=== PATIENT | female | born 1955 | race Caucasian/White ===

== ENCOUNTER → 2017-06-22 | Outpatient (CLI) | payer BC ==
--- NOTE | 2017-06-22 19:28 | Diagnostic Imaging Report ---
INDICATION: Six-month followup of right breast density. Correlation is made with prior mammogram from 01/04/2017. The current study was also evaluated with a Computer Aided Detection (CAD) system. 3D CC, MLO and mediolateral views of the right breast as well as conventional 2D exaggerated CC view of the right breast was performed. FINDINGS: The focal slightly lobulated density in the far posterior aspect of the right breast at the nipple line best seen on the MLO and ML views appears stable. This appears to be slightly laterally located on the CC view. No new mass is identified. No malignant-appearing microcalcifications are seen. The right axilla is unremarkable. IMPRESSION: Stable right breast nodule when compared with examination from 01/04/2017. Additional followup in six-month is recommended to confirm stability. ACR BI-RADS Category 3: Probably benign findings. Result letter will be mailed to the patient. Note: At least 10% of breast cancer is not imaged by mammography. Dictated by: Dictated on workstation # [id number]
== END ==
LOC: RAD 14:09
PROVIDERS: ATTEND Family Medicine
DX: R92.2 Inconclusive mammogram (principal)

== ENCOUNTER → 2018-01-04 | Outpatient (CLI) | payer BC ==
--- NOTE | 2018-01-04 09:10 | Diagnostic Imaging Report ---
INDICATION: Six-month followup of right breast density. COMPARISON: Correlation is made with the prior mammogram from 06/22/2017 as well as 01/04/2017 and 01/30/2016. TECHNIQUE: 2D and 3D bilateral diagnostic mammography was performed with CAD. FINDINGS: Scattered fibroglandular densities are identified bilaterally. A small circumscribed nodular density in the far posterior right breast slightly lateral to the nipple line on the CC view is noted and appears stable. No new mass is seen. No malignant appearing microcalcifications are identified. The axillae are unremarkable. IMPRESSION: Stable right breast nodule. This now shows 1 year of stability. The left breast is unremarkable. The patient should return in 6 months for an additional followup of the right breast to show continued stability. ACR BI-RADS Category 3: Probably benign findings. Result letter will be mailed to the patient. Note: At least 10% of breast cancer is not imaged by mammography. Dictated by: Dictated on workstation # [id number]
== END ==
LOC: RAD 08:31
PROVIDERS: ATTEND Nurse Practitioner Family
DX: N63.10 Unspecified lump in the right breast, unspecified quadrant (principal)
CPT/HCPCS: 77066

== ENCOUNTER → 2018-07-13 | Outpatient (CLI) | payer BC ==
--- NOTE | 2018-07-13 20:18 | Diagnostic Imaging Report ---
INDICATION: Six-month followup. Comparison made with prior examination 01/04/2018 back through 04/23/2011. The current study was also evaluated with a Computer Aided Detection (CAD) system. FINDINGS: There are scattered fibroglandular densities in the right breast. The faint nodular density in the posterior right breast is unchanged and less apparent on today's exam. This is no new dominant mass, spiculated lesion or suspicious calcification identified. The skin nipples and axilla are unremarkable. IMPRESSION: The patient should resume bilateral screening mammography in January 2019. ACR BI-RADS Category 2: Benign findings. Result letter will be mailed to the patient. Note: At least 10% of breast cancer is not imaged by mammography. Dictated by: Dictated on workstation # [id number]
== END ==
LOC: RAD 13:33
PROVIDERS: ATTEND Nurse Practitioner Family
DX: N63.10 Unspecified lump in the right breast, unspecified quadrant (principal)

== ENCOUNTER → 2019-02-07 | Outpatient (CLI) | payer MEDICARE ==
--- NOTE | 2019-02-07 19:15 | Diagnostic Imaging Report ---
INDICATION: Screening. The current study was also evaluated with a Computer Aided Detection (CAD) system. 3-D Tomographic imaging was also performed. Comparison made with prior examinations from 07/13/2018, 01/04/2018, 06/22/2017, and 01/04/2017. FINDINGS: There are scattered fibroglandular densities bilaterally. There is an unchanged faint nodular density in the posterior aspect of the right breast laterally. There are a few benign-type calcifications. There is no new dominant mass, spiculated lesion, or suspicious calcification identified. The skin, nipples, and axillae are unremarkable. IMPRESSION: Benign. ACR BI-RADS Category 2: Benign findings. Result letter will be mailed to the patient. Note: At least 10% of breast cancer is not imaged by mammography. Dictated by: Dictated on workstation # [id number]
== END ==
LOC: RAD 08:13
PROVIDERS: ATTEND Nurse Practitioner Family
DX: Z12.31 Encounter for screening mammogram for malignant neoplasm of breast (principal)
CPT/HCPCS: 77067

== ENCOUNTER → 2019-11-20 | Outpatient (CLI) | payer MEDICARE ==
[2019-11-20 11:56] LABS: BUN/CREATININE RATIO 18; GFR ESTIMATED > 60
== END ==
LOC: LAB 11:28
PROVIDERS: ATTEND Otolaryngology Otolaryngology/Facial Plastic Surgery
DX: H91.8X2 Other specified hearing loss, left ear (principal)
CPT/HCPCS: 82565; 84520

== ENCOUNTER → 2019-11-21 | Outpatient (CLI) | payer MEDICARE ==
--- NOTE | 2019-11-22 13:57 | Diagnostic Imaging Report ---
NAME: Cassidy Morton. : 1955. EXAMINATION: MRI brain without contrast on 11/21/2019. INDICATION: Hearing loss. TECHNIQUE: Multiplanar, multisequence imaging of the brain was performed without contrast. IV contrast was not administered. The patient refused contrast. FINDINGS: The ventricles and sulci are within normal limits. No sulcal effacement or midline shift is identified. No acute intra-axial or extra-axial hemorrhage is detected. No diffusion restriction is identified. The normal expected flow-voids within the carotid siphons are seen. No definite cerebellopontine angle mass is detected. The IACs are unremarkable. The corpus callosum is unremarkable. The sella and parasellar structures are unremarkable. IMPRESSION: Unremarkable noncontrast MRI of the brain. Dictated by: Dictated on workstation # [id number]
== END ==
LOC: RAD 11:53
PROVIDERS: ATTEND Otolaryngology Otolaryngology/Facial Plastic Surgery
DX: H91.92 Unspecified hearing loss, left ear (principal)
CPT/HCPCS: 70551

== ENCOUNTER → 2019-12-14 | Outpatient (CLI) | payer MEDICARE | LOC: LABNPT 05:44 | PROVIDERS: ATTEND Family Medicine | DX: R06.02 Shortness of breath (principal); Z20.828 Contact with and (suspected) exposure to other viral communicable diseases | CPT/HCPCS: 87635 ==

== ENCOUNTER → 2020-03-12 | Outpatient (CLI) | payer MEDICARE ==
--- NOTE | 2020-03-13 09:34 | Diagnostic Imaging Report ---
Indication: Routine screening. Comparison is made with prior mammogram from 02/07/2019 and 01/04/2018. 2-D and 3-D bilateral screening mammography was performed with CAD. Scattered fibroglandular densities are identified bilaterally. A focal density in the lateral left breast on the CC view posterior depth is noted. Additional views are recommended. Right breast unremarkable. No malignant appearing microcalcifications are seen. Axillae are unremarkable. IMPRESSION: BI-RADS 0 Left breast density. Additional views are recommended. ACR BI-RADS Category 0: Incomplete. (Needs additional imaging evaluation). Result letter will be mailed to the patient. Note: At least 10% of breast cancer is not imaged by mammography. Dictated by: Dictated on workstation # [id number]
== END ==
LOC: RAD 14:45
PROVIDERS: ATTEND Nurse Practitioner Family
DX: Z12.31 Encounter for screening mammogram for malignant neoplasm of breast (principal)
CPT/HCPCS: 77063; 77067

== ENCOUNTER → 2020-03-21 | Outpatient (CLI) | payer MEDICARE ==
--- NOTE | 2020-03-21 20:21 | Diagnostic Imaging Report ---
INDICATION: Left breast density. Patient presents for additional views. COMPARISON: Correlation is made with screening study from 03/12/2020. EXAMINATION: Unilateral left 2D and 3D diagnostic mammography was performed. This includes spot compression CC and ML views as well as rolled CC and conventional 90 degree lateral views. FINDINGS: Additional views fail to demonstrate discrete mass. There is some mild density in the lateral left breast which most likely represents superimposed tissue. No suspicious calcifications are seen. IMPRESSION: No discrete mass is identified. Even so, follow-up left mammogram in six months is recommended to show continued stability. ACR BI-RADS Category 3: Probably benign findings. Result letter will be mailed to the patient. Note: At least 10% of breast cancer is not imaged by mammography. Dictated by: Dictated on workstation # [id number]
== END ==
LOC: RAD 14:08
PROVIDERS: ATTEND Nurse Practitioner Family
DX: R92.2 Inconclusive mammogram (principal)
CPT/HCPCS: 77065; G0279

== ENCOUNTER → 2021-05-28 | Outpatient (CLI) | payer MEDICARE ==
--- NOTE | 2021-05-28 10:21 | Diagnostic Imaging Report ---
INDICATION: Right breast pain and left breast lump COMPARISON is made with prior mammograms from 03/12/2020 and 02/07/2019. 2-D and 3-D bilateral diagnostic mammography was performed with CAD. Scattered fibroglandular densities are identified bilaterally. No mass or malignant-appearing microcalcifications are seen. Axillae are unremarkable. IMPRESSION: BI-RADS Category 0 No mammographic features suspicious for malignancy are identified. Even so, sonographic interrogation of the area of pain in the right breast and lump in left breast is recommended and will be performed today. ACR BI-RADS Category 0: Incomplete. (Needs additional imaging evaluation). Result letter will be mailed to the patient. Note: At least 10% of breast cancer is not imaged by mammography. Dictated by: Dictated on workstation # [id number]
--- NOTE | 2021-05-28 14:02 | Diagnostic Imaging Report ---
INDICATION: Right breast pain and left breast lump. CORRELATION is made with diagnostic study performed earlier same day. Area of pain in the right breast was performed corresponding to the 11 to 2 o'clock location. No sonographic abnormality is seen. No masses are detected. The area of lump corresponds to the 12:00 location of the left breast, 5 cm from the nipple. No mass is detected. No sonographic abnormality is identified. IMPRESSION: BI-RADS Category 1 No sonographic abnormality is identified. Continued clinical and self breast exams of the area of lump left breast is recommended to confirm stability. ACR BI-RADS Category 1: Negative. Result letter will be mailed to the patient. Note: At least 10% of breast cancer is not imaged by mammography. Dictated by: Dictated on workstation # [id number]
== END ==
LOC: RAD 08:48
PROVIDERS: ATTEND Family Medicine
DX: N63.20 Unspecified lump in the left breast, unspecified quadrant (principal); N64.4 Mastodynia
CPT/HCPCS: 76642; 77066; G0279; 77062

== ENCOUNTER 2021-06-01 09:19 | Emergency (ER) | payer MEDICARE ==
[~2021-06-01] VITALS: Ht 160 cm; Wt 62.5 kg
--- NOTE | 2021-06-01 09:42 | ED General ---
General Stated Complaint: HIGH BP 194/140 Source of Information: Patient Exam Limitations: No Limitations History of Present Illness Date Seen by Provider: Jun 01, 2021 Time Seen by Provider: 09:28 Initial Comments Patient is a 65-year-old female who presents to the emergency department with a chief complaint of concern for elevated blood pressure this morning. Patient states she started feeling not so great last night and did not sleep all night complaining of palpitations. Patient at one point during the night had some chest discomfort at about 1 AM. She states she was a little sweaty but "I am always sweaty". No nausea. She felt a little short of breath. She was recently seen by Dr. Ross a week ago for her palpitations and started on metoprolol 25 mg once daily. She was also recently seen by her primary care physician for concern of thyroid dysfunction which she states after labs were obtained was normal. She denies any recent illnesses, no Covid concerns, she is vaccinated. She does have a headache that developed gradually throughout the evening. She denies any problems with speech or new acute changes in vision. No numbness weakness or tingling in any of her extremities. No problems with bowel or bladder. Reportedly her blood pressure this morning at home was in the 240/130 range. Here in the emergency department she is in the 190s over 80s with a heart rate in the 60s. No other chronic medical conditions reported. She is on a vitamin D supplement. All other review of systems reviewed and negative except as stated. Timing/Duration: 12 Hours Severity: Moderate Associated Systoms: Chest Pain, Malaise, Other (palpitations) Allergies and Home Medications Allergies Coded Allergies: Penicillins (Verified Allergy, Unknown, 06/01/21) clarithromycin (Verified Allergy, Unknown, 06/01/21) iodine (Verified Allergy, Unknown, 06/01/21) Patient Home Medication List Home Medication List Reviewed: Yes Review of Systems Review of Systems Constitutional: see HPI EENTM: no symptoms reported Respiratory: short of breath (mild (anxious)) Cardiovascular: chest pain ((discomfort about 1am)) Gastrointestinal: no symptoms reported Genitourinary: frequency ("up every 2 hours" (chronic)) Musculoskeletal: no symptoms reported Skin: no symptoms reported Psychiatric/Neurological: Anxiety ("I always cry"), Headache; Denies Numbness, Denies Paresthesia, Denies Weakness All Other Systems Reviewed Negative Unless Noted: Yes Physical Exam Vital Signs Vital Signs - First Documented 06/01/21 09:30 Temp 36.0 Pulse 89 Resp 18 B/P (MAP) 191/83 (119) Pulse Ox 96 O2 Delivery Room Air Capillary Refill : Height, Weight, BMI Height: '" Weight: lbs. oz. kg; BMI Method: General Appearance: WD/WN, Anxious (tearful) Eyes: Bilateral Eye Normal Inspection, Bilateral Eye PERRL, Bilateral Eye EOMI HEENT: PERRL/EOMI Neck: Normal Inspection Respiratory: Lungs Clear, Normal Breath Sounds, No Accessory Muscle Use, No Respiratory Distress Cardiovascular: Regular Rate, Rhythm (60's), Normal Peripheral Pulses Gastrointestinal: Non Tender, Soft Extremity: Normal Capillary Refill, Normal Inspection, Normal Range of Motion, Non Tender, No Calf Tenderness, No Pedal Edema Neurologic/Psychiatric: Alert, Oriented x3, No Motor/Sensory Deficits, technical services consultant II- XII Norm as Tested, Other (tearful and anxious) Skin: Normal Color, Warm/Dry Progress/Results/Core Measures Suspected Sepsis SIRS Temperature: Pulse: Respiratory Rate: Laboratory Tests 06/01/21 09:40: White Blood Count 7.8 Blood Pressure / Mean: Laboratory Tests 06/01/21 09:40: Creatinine 0.74, Platelet Count 252 Results/Orders Lab Results Laboratory Tests Test 06/01/21 09:40 Range/Units White Blood Count 7.8 4.3-11.0 10^3/uL Red Blood Count 4.59 3.80-5.11 10^6/uL Hemoglobin 14.1 11.5-16.0 g/dL Hematocrit 41 35-52 % Mean Corpuscular Volume 89 80-99 fL Mean Corpuscular Hemoglobin 31 25-34 pg Mean Corpuscular Hemoglobin Concent 35 32-36 g/dL Red Cell Distribution Width 12.4 10.0-14.5 % Platelet Count 252 130-400 10^3/uL Mean Platelet Volume 8.7 L 9.0-12.2 fL Immature Granulocyte % (Auto) 1 % Neutrophils (%) (Auto) 54 42-75 % Lymphocytes (%) (Auto) 35 12-44 % Monocytes (%) (Auto) 7 0-12 % Eosinophils (%) (Auto) 3 0-10 % Basophils (%) (Auto) 1 0-10 % Neutrophils # (Auto) 4.2 1.8-7.8 10^3/uL Lymphocytes # (Auto) 2.7 1.0-4.0 10^3/uL Monocytes # (Auto) 0.6 0.0-1.0 10^3/uL Eosinophils # (Auto) 0.2 0.0-0.3 10^3/uL Basophils # (Auto) 0.0 0.0-0.1 10^3/uL Immature Granulocyte # (Auto) 0.1 0.0-0.1 10^3/uL Sodium Level 137 135-145 MMOL/L Potassium Level 4.0 3.6-5.0 MMOL/L Chloride Level 107 98-107 MMOL/L Carbon Dioxide Level 19 L 21-32 MMOL/L Anion Gap 11 5-14 MMOL/L Blood Urea Nitrogen 13 7-18 MG/DL Creatinine 0.74 0.60-1.30 MG/DL Estimat Glomerular Filtration Rate 89 BUN/Creatinine Ratio 18 Glucose Level 107 H 70-105 MG/DL Calcium Level 8.7 8.5-10.1 MG/DL Troponin I < 0.028 <0.028 NG/ML My Orders Orders - AYAH MOSHER MD Ed Iv/Invasive Line Start (06/01/21 09:43) Cbc With Automated Diff (06/01/21 09:43) Basic Metabolic Panel (06/01/21 09:43) Troponin I [place] (06/01/21 09:43) Ekg Tracing (06/01/21 09:43) Chest 1 View, Ap/Pa Only (06/01/21 09:43) Acetaminophen Tablet (Tylenol Tablet) (06/01/21 09:45) Aspirin Chewable Tablet (Baby Aspirin Ch (06/01/21 09:45) Medications Given in ED Current Medications Medications Dose Ordered Sig/Dontae Route Start Time Stop Time Status Last Admin Dose Admin Acetaminophen 1,000 mg ONCE ONCE PO 06/01/21 09:45 06/01/21 09:46 DC 06/01/21 09:49 1,000 MG Aspirin 324 mg ONCE ONCE PO 06/01/21 09:45 2 09:46 DC 06/01/21 09:49 324 MG Vital Signs/I&O 06/01/21 09:30 Temp 36.0 Pulse 89 Resp 18 B/P (MAP) 191/83 (119) Pulse Ox 96 O2 Delivery Room Air Capillary Refill : Progress Note : Time: 10:59 Progress Note Evaluated at this time, blood pressure down into the 160 range. She feels much better, her headache is improved. I have reviewed her EKG, basic laboratory studies including troponin as well as chest x-ray. All of her studies are within normal limits. No physical exam findings concerning for acute stroke, she does not have acute pulmonary edema, no concern for acute coronary syndrome, she does not have renal failure. No signs of infection. She is quite anxious at baseline and I feel like symptoms of sleeplessness combined with her palpitations caused her blood pressure likely to keep increasing. Her heart rate is now down into the low 50s, lowest noted 49. I talked to her about the metoprolol and have advised her to have close follow-up with Dr. Ross and her primary care physician. Both she and her daughter who is at the bedside verbalized understanding and agreement with the plan of care. All questions are sought and answered. Patient is stable for discharge ECG Initial ECG Impression Date: Jun 01, 2021 Initial ECG Impression Time: 09:23 Initial ECG Rate: 68 Initial ECG Rhythm: Normal Sinus Initial ECG Intervals: Normal Initial ECG Impression: Nonspecific Changes (Nonspecific ST-T wave changes across the precordium, leads V3 to V6 with some T wave inversion and ST flattening in the inferior leads) Diagnostic Imaging Diagonstic Imaging: Xray Plain Films/CT/US/NM/MRI: chest Comments [facility], [place] NAME: FABIOLA MOROCHO Adam [facility] REC#: [id number] PT STATUS: REG ER : 1955 PHYSICIAN: AYAH MOSHER MD ADMIT DATE: 06/01/21/ER Draft Date of Exam:06/01/21 CHEST 1 VIEW, AP/PA ONLY CLINICAL INDICATION: Patient with hypertension, headache, and dizziness onset during the night, patient reports feeling like her heart is racing. EXAM: Portable chest x-ray upright view. COMPARISON: None. FINDINGS: Lungs/pleura: Lungs are clear. There is no pneumothorax. There is no pleural effusion. Mediastinum: Unremarkable. Pulmonary vasculature: Unremarkable. Heart: Upper limits of normal heart size. Bones/extrathoracic soft tissue: Hypertrophic spurs involving the thoracic spine.. IMPRESSION: Upper limits of normal heart size. There is no radiographic evidence of acute cardiopulmonary process. Dictated on workstation # [id number] Dict: 06/01/21 1012 Trans: 06/01/21 1015 CVB [id number] Interpreted by: SHAWN CHINO MD Electronically signed by: Departure Impression Primary Impression: High blood pressure Qualified Codes: I10 - Essential (primary) hypertension Disposition: HOME, SELF-CARE Condition: Improved Departure-Patient Inst. Decision time for Depature: 11:01 Referrals: PAVEL CLOUD MD (PCP/Family) Primary Care Physician Patient Instructions: High Blood Pressure (DC) Add. Discharge Instructions: Watch the salt intake in your diet as well as caffeine intake. These can both increase your blood pressure. Continue your metoprolol as prescribed on a daily basis. If you feel lightheaded or dizzy, weak like you might pass out when standing from sitting or sitting up from laying down take your time and allow your body to adjust before standing up. You may if the symptoms persist, talk to your primary care doctor about changing your metoprolol to a different blood pressure medication. Please follow-up with Dr. Cloud as scheduled. Come back to the emergency room for any new, concerning or emergent complaints. Copy Copies To 1: PAVEL CLOUD MD, KATHRYN M MD Jun 01, 2021 09:42
[2021-06-01] MEDS ORDERED: ASPIRIN 81 MG CHEW (CHILDREN'S ASA) PO ONE (09:45)
[2021-06-01] MEDS ORDERED: ACETAMINOPHEN 500 MG TAB (TYLENOL) PO ONE (09:45)
[2021-06-01 09:52] LABS: CHLORIDE 107 MMOL/L (98-107); SODIUM 137 MMOL/L (135-145)
[2021-06-01 09:53] LABS: BASOPHILS % (AUTO) 1 % (0-10); EOSINOPHILS # (AUTO) 0.2 10^3/uL (0.0-0.3); EOSINOPHILS % (AUTO) 3 % (0-10); HEMATOCRIT 41 % (35-52); HEMOGLOBIN 14.1 g/dL (11.5-16.0); LYMPHOCYTES # (AUTO) 2.7 10^3/uL (1.0-4.0); LYMPHOCYTES % (AUTO) 35 % (12-44); MEAN CORPUSCULAR HEMOGLOBIN 31 pg (25-34); MEAN CORPUSCULAR HGB CONC 35 g/dL (32-36); MEAN CORPUSCULAR VOLUME 89 fL (80-99); MEAN PLATELET VOLUME 8.7 fL (9.0-12.2); MONOCYTES # (AUTO) 0.6 10^3/uL (0.0-1.0); MONOCYTES % (AUTO) 7 % (0-12); NEUTROPHILS # (AUTO) 4.2 10^3/uL (1.8-7.8); NEUTROPHILS % (AUTO) 54 % (42-75); PLATELET COUNT 252 10^3/uL (130-400); WHITE BLOOD COUNT 7.8 10^3/uL (4.3-11.0)
[2021-06-01 09:54] LABS: CALCIUM 8.7 MG/DL (8.5-10.1); GLUCOSE 107 MG/DL (70-105)
[2021-06-01 09:56] LABS: CARBON DIOXIDE 19 MMOL/L (21-32)
[2021-06-01 09:58] LABS: CREATININE SERUM 0.74 MG/DL (0.60-1.30); GFR ESTIMATED 89
[2021-06-01 09:59] LABS: BUN/CREATININE RATIO 18
--- NOTE | 2021-06-01 10:16 | Diagnostic Imaging Report ---
CLINICAL INDICATION: Patient with hypertension, headache, and dizziness onset during the night, patient reports feeling like her heart is racing. EXAM: Portable chest x-ray upright view. COMPARISON: None. FINDINGS: Lungs/pleura: Lungs are clear. There is no pneumothorax. There is no pleural effusion. Mediastinum: Unremarkable. Pulmonary vasculature: Unremarkable. Heart: Upper limits of normal heart size. Bones/extrathoracic soft tissue: Hypertrophic spurs involving the thoracic spine.. IMPRESSION: Upper limits of normal heart size. There is no radiographic evidence of acute cardiopulmonary process. Dictated by: Dictated on workstation # [id number]
[2021-06-01 11:18] VITALS: BP 164/85
== END 2021-06-01 11:18 | disposition home or self-care (01) ==
LOC: EDUNIT# 09:19 → ER 09:20
DX: I10 Essential (primary) hypertension (principal)
CPT/HCPCS: 36415; 71045; 80048; 84484; 85025; 93005

== ENCOUNTER 2021-06-01 11:57 | Outpatient (CLI) | payer MEDICARE | END 2021-06-01 12:28 | LOC: SLEEP 11:57 | PROVIDERS: ATTEND Internal Medicine Cardiovascular Disease | DX: G47.33 Obstructive sleep apnea (adult) (pediatric) (principal); I10 Essential (primary) hypertension | CPT/HCPCS: G0399 ==

== ENCOUNTER 2021-06-04 04:17 | Observation (INO) | payer MEDICARE ==
[~2021-06-04] VITALS: Ht 160 cm; Wt 107.7 kg
[2021-06-04] VITALS (12 sets, daily range): BP systolic 124–166; BP diastolic 58–85
--- NOTE | 2021-06-04 05:28 | ED General ---
General Chief Complaint: Cardiac/General Problems Stated Complaint: BLOOD PRESSURE 241/101 Nursing Triage Note: Pt arrives w/ per POV w/ c/o "elevated blood pressure." Pt states that she woke up and while lying on left side had CP, that stopped when she turned to her back. Denies pain currently and when turns to left side, denies pain. Stated that after she awoke, she said that upon taking her B/P when she didn't take yesterday her B/P was 241/sys. Attached to resident engineer and Sys B/P was 174. Source of Information: Patient Exam Limitations: No Limitations (ANUJA BECKHAM STUDENT) History of Present Illness Date Seen by Provider: Jun 04, 2021 Initial Comments This is a 65 YO female presenting to the ED with blood pressure reading of 241 systolic at home. Pt says she was diagnosed with HTN last week by Dr. Ross and started on Metoprolol succinate 25 mg daily. She notes that she has still been haivng high blood pressue and also has had some associated light-headedness. Pt did not take her Metorpolol yesterday because she does not like how it makes her feel and Dr Ross was to call in new medication in the morning for pt to take. Pt has echo scheduled in the morning and stress test within the next week. Tonight, pt says that when she woke up and had the high blood pressure reading, she had a sharp left-sided chest pain. However, she attributes this to sleeping on her left side and the pain resolved when pt rolled over onto her back. She does report that she now has central chest pressure. No prior cardiac workup. Associated Systoms: Chest Pain; No Fever/Chills (ANUJA BECKHAM STUDENT) Time Seen by Provider: 05:50 Initial Comments Patient denies any chest pain since 4:00 this morning after she stopped laying on her left side. She denies currently having any chest pain. She has associated chest pain with laying on her left side however she states it woke her up from sleep at 1:00 in the morning. She is not having any pain with movement. Patient presents with a chief complaint of high blood pressure. Records reveal she was here June 01, 3 days ago with complaints of being sweaty and having chest discomfort starting about 1 AM. She had some palpitations which led her to be seen by Dr. Ross 10 days ago and that is why he started metoprolol. No recent illness symptoms. She reports her blood pressure then was in the 240s over 100 range as it is today. No known history of obstructive sleep apnea, snoring, nocturnal wakefulness or daytime somnolence. Cardiomegaly noted on her chest x-ray. Patient states she took 1 tablet of baby aspirin at 1:00 when she woke up with chest pain. She took another 3 tablets of 81 mg aspirin prior to coming to the ER at about 4:00. ([facility]) Allergies and Home Medications Allergies Coded Allergies: Penicillins (Verified Allergy, Unknown, 06/01/21) clarithromycin (Verified Allergy, Unknown, 06/01/21) iodine (Verified Allergy, Unknown, 06/01/21) Patient Home Medication List Home Medication List Reviewed: Yes ([facility]) Review of Systems Review of Systems Constitutional: No chills, No fever EENTM: No blurred vision, No double vision Respiratory: No cough, No dyspnea on exertion Cardiovascular: chest pain Gastrointestinal: No abdominal pain, No diarrhea Genitourinary: No discharge, No dysuria Musculoskeletal: No back pain, No joint pain Skin: No pruritus, No rash Psychiatric/Neurological: Denies Headache, Denies Numbness Hematologic/Lymphatic: No Symptoms Reported Immunological/Allergic: no symptoms reported (ANUJA BECKHAM) All Other Systems Reviewed Negative Unless Noted: Yes (Negative excepted noted.) (ANUJA BECKHAM) Past Rxlbhnf-Gvhedj-Tlstkn Hx Patient Social History Tobacco Use?: No Use of E-Cig and/or Vaping dev: No Substance use?: No ([facility]) Past Medical History Surgery/Hospitalization HX: HTN (ANUJA BECKHAM STUDENT) Physical Exam Vital Signs Vital Signs - First Documented 06/04/21 04:55 Temp 36.4 Pulse 58 Resp 20 B/P (MAP) 174/88 (116) Pulse Ox 96 ([facility]) Vital Signs Capillary Refill : Less Than 3 Seconds (ANUJA BECKHAM STUDENT) Height, Weight, BMI Height: '" Weight: lbs. oz. kg; 42.00 BMI Method: General Appearance: No Apparent Distress, WD/WN Eyes: Bilateral Eye Normal Inspection, Bilateral Eye PERRL, Bilateral Eye EOMI HEENT: PERRL/EOMI; No Scleral Icterus (L), No Scleral Icterus (R) Neck: Full Range of Motion, Normal Inspection Respiratory: Lungs Clear, Normal Breath Sounds, No Accessory Muscle Use, No Respiratory Distress Cardiovascular: No Murmur, Bradycardia Gastrointestinal: Non Tender, Soft; No Distended Extremity: Normal Inspection, Normal Range of Motion, Other (moves all extremi ties) Neurologic/Psychiatric: Alert, Oriented x3, No Motor/Sensory Deficits, Normal Mood/Affect Skin: Normal Color, Warm/Dry (ANUJA BECKHAM MED STUDENT) Progress/Results/Core Measures Suspected Sepsis SIRS Temperature: Pulse: 58 Respiratory Rate: 20 Blood Pressure 174 /88 Mean: 116 (ANUJA BECKHAM MED STUDENT) Results/Orders Lab Results Laboratory Tests Test 06/04/21 05:50 06/04/21 06:30 Range/Units White Blood Count 8.2 4.3-11.0 10^3/uL Red Blood Count 4.52 3.80-5.11 10^6/uL Hemoglobin 13.6 11.5-16.0 g/dL Hematocrit 40 35-52 % Mean Corpuscular Volume 87 80-99 fL Mean Corpuscular Hemoglobin 30 25-34 pg Mean Corpuscular Hemoglobin Concent 34 32-36 g/dL Red Cell Distribution Width 12.5 10.0-14.5 % Platelet Count 248 130-400 10^3/uL Mean Platelet Volume 8.5 L 9.0-12.2 fL Immature Granulocyte % (Auto) 0 % Neutrophils (%) (Auto) 56 42-75 % Lymphocytes (%) (Auto) 33 12-44 % Monocytes (%) (Auto) 8 0-12 % Eosinophils (%) (Auto) 2 0-10 % Basophils (%) (Auto) 1 0-10 % Neutrophils # (Auto) 4.6 1.8-7.8 10^3/uL Lymphocytes # (Auto) 2.7 1.0-4.0 10^3/uL Monocytes # (Auto) 0.6 0.0-1.0 10^3/uL Eosinophils # (Auto) 0.2 0.0-0.3 10^3/uL Basophils # (Auto) 0.0 0.0-0.1 10^3/uL Immature Granulocyte # (Auto) 0.0 0.0-0.1 10^3/uL Sodium Level 136 135-145 MMOL/L Potassium Level 4.5 3.6-5.0 MMOL/L Chloride Level 106 98-107 MMOL/L Carbon Dioxide Level 20 L 21-32 MMOL/L Anion Gap 10 5-14 MMOL/L Blood Urea Nitrogen 19 H 7-18 MG/DL Creatinine 0.73 0.60-1.30 MG/DL Estimat Glomerular Filtration Rate 90 BUN/Creatinine Ratio 26 Glucose Level 114 H 70-105 MG/DL Calcium Level 9.1 8.5-10.1 MG/DL Corrected Calcium 9.2 8.5-10.1 MG/DL Magnesium Level 2.1 1.6-2.4 MG/DL Total Bilirubin 0.5 0.1-1.0 MG/DL Aspartate Amino Transf (AST/SGOT) 18 5-34 U/L Alanine Aminotransferase (ALT/SGPT) 27 0-55 U/L Alkaline Phosphatase 60 40-136 U/L Myoglobin 29.5 10.0-92.0 NG/ML Troponin I < 0.028 <0.028 NG/ML Total Protein 6.9 6.4-8.2 GM/DL Albumin 3.9 3.2-4.5 GM/DL Thyroid Stimulating Hormone (TSH) 2.26 0.35-4.94 UIU/ML Free Thyroxine 1.08 0.70-1.48 NG/DL Prothrombin Time 12.9 12.2-14.7 SEC INR Comment 0.9 0.8-1.4 Activated Partial Thromboplast Time 31 24-35 SEC ([facility]) My Orders Orders - [facility] Aspirin Chewable Tablet (Baby Aspirin Ch (06/04/21 06:15) ([facility]) Medications Given in ED Current Medications Medications Dose Ordered Sig/Dontae Route Start Time Stop Time Status Last Admin Dose Admin Aspirin 162 mg ONCE ONCE PO 06/04/21 06:15 06/04/21 06:16 DC 06/04/21 06:50 162 MG ([facility]) Vital Signs/I&O 06/04/21 04:55 Temp 36.4 Pulse 58 Resp 20 B/P (MAP) 174/88 (116) Pulse Ox 96 ([facility]) Vital Signs/I&O Capillary Refill : Less Than 3 Seconds (ANUJA BECKHAM MED STUDENT) Blood Pressure Mean: 116 Progress Note : Time: 06:09 Progress Note 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 Plan would be to give her aspirin. Patient states she is already taken 1 aspirins when she woke up at 1:00 and another 3 aspirin at 4:00 before deciding to venture to the ER. We will give her 162 mg aspirin. She is not having any pain currently so we will obtain labs and if her initial troponin is negative she would score out for points on the heart score and I would recommend an observation accelerated work-up for her hypertensive emergency/chest pain. At time of presentation her blood pressure is acceptable 160s to 190s systolic. This either represents a drop from the blood pressure she was experiencing when she was having chest pain or she needs to have her blood pressure cuff checked and we have suggested she do this with her primary care provider or Dr. Ross's office. ([facility]) ECG Initial ECG Impression Date: Jun 04, 2021 Initial ECG Impression Time: 05:38 Initial ECG Rate: 52 Initial ECG Rhythm: Normal Sinus Initial ECG Intervals: Normal Initial ECG Impression: Normal Initial ECG Comparisson: Unchanged Comment Normal sinus rhythm without clinically relevant ST changes. ([facility]) Diagnostic Imaging Diagonstic Imaging: Xray Plain Films/CT/US/NM/MRI: chest Comments No acute cardiopulmonary processes on 1 view chest x-ray. No change from 06/01/2021. NAME: FABIOLA MOROCHO MED REC#: [id number] PT STATUS: REG ER : 1955 PHYSICIAN: GEMINI SAMPSON MD ADMIT DATE: 06/04/21/ER Draft Date of Exam:06/04/21 CHEST 1 VIEW, AP/PA ONLY INDICATION: Chest pain. Hypertension. TECHNIQUE: Single view chest 6:30 AM. CORRELATION STUDY: 05/24/2021 FINDINGS: The heart size, mediastinal configuration and pulmonary vascularity are within normal limits. The lungs are clear with no consolidating infiltrate. There is no significant effusion or pneumothorax. IMPRESSION: 1. Negative appearing portable chest. Dictated on workstation # [id number] Dict: 06/04/2146 Trans: 06/04/21 0647 DO [id number] Interpreted by: JOAQUINA HENRY DO Electronically signed by: Reviewed: Reviewed by Me ([facility]) Departure Communication (Admissions) Time/Spoke to Admitting Phy: 07:07 Discussed the case with Dr. Cloud who agrees with consultation with cardiology for an observation for chest pain. Time/Spoke to Consulting Phy: 07:05 Discussed the case with Dr. Ross, cardiology was familiar the patient and his okay with observing the patient, consulting for cardiology and plans to do stress test tomorrow. ([facility]) Impression Primary Impression: Hypertensive emergency without congestive heart failure Additional Impressions: Acute coronary syndrome without high troponin Chest pain Qualified Codes: R07.9 - Chest pain, unspecified Disposition: ADMITTED INPATIENT Condition: Stable Admissions Decision to Admit Reason: Admit from ER (General) Decision to Admit/Date: Jun 04, 2021 Time/Decision to Admit Time: 07:00 ([facility]) Departure-Patient Inst. Referrals: PAVEL CLOUD MD (PCP/Family) Primary Care Physician ANUJA BECKHAM MED STUDENT Jun 04, 2021 05:28 [facility] Jun 04, 2021 06:12
[2021-06-04 06:05] LABS: BASOPHILS % (AUTO) 1 % (0-10); EOSINOPHILS # (AUTO) 0.2 10^3/uL (0.0-0.3); EOSINOPHILS % (AUTO) 2 % (0-10); HEMATOCRIT 40 % (35-52); HEMOGLOBIN 13.6 g/dL (11.5-16.0); LYMPHOCYTES # (AUTO) 2.7 10^3/uL (1.0-4.0); LYMPHOCYTES % (AUTO) 33 % (12-44); MEAN CORPUSCULAR HEMOGLOBIN 30 pg (25-34); MEAN CORPUSCULAR HGB CONC 34 g/dL (32-36); MEAN CORPUSCULAR VOLUME 87 fL (80-99); MEAN PLATELET VOLUME 8.5 fL (9.0-12.2); MONOCYTES # (AUTO) 0.6 10^3/uL (0.0-1.0); MONOCYTES % (AUTO) 8 % (0-12); NEUTROPHILS # (AUTO) 4.6 10^3/uL (1.8-7.8); NEUTROPHILS % (AUTO) 56 % (42-75); PLATELET COUNT 248 10^3/uL (130-400); WHITE BLOOD COUNT 8.2 10^3/uL (4.3-11.0)
[2021-06-04] MEDS ORDERED: ASPIRIN 81 MG CHEW (CHILDREN'S ASA) PO ONE (06:15)
[2021-06-04 06:21] LABS: ALBUMIN 3.9 GM/DL (3.2-4.5); POTASSIUM 4.5 MMOL/L (3.6-5.0)
[2021-06-04 06:23] LABS: CALCIUM 9.1 MG/DL (8.5-10.1)
[2021-06-04 06:24] LABS: TOTAL PROTEIN 6.9 GM/DL (6.4-8.2)
[2021-06-04 06:26] LABS: BILIRUBIN,TOTAL 0.5 MG/DL (0.1-1.0)
[2021-06-04 06:27] LABS: CREATININE SERUM 0.73 MG/DL (0.60-1.30)
[2021-06-04 06:30] LABS: MAGNESIUM 2.1 MG/DL (1.6-2.4)
--- NOTE | 2021-06-04 06:47 | Diagnostic Imaging Report ---
INDICATION: Chest pain. Hypertension. TECHNIQUE: Single view chest 6:30 AM. CORRELATION STUDY: 05/24/2021 FINDINGS: The heart size, mediastinal configuration and pulmonary vascularity are within normal limits. The lungs are clear with no consolidating infiltrate. There is no significant effusion or pneumothorax. IMPRESSION: 1. Negative appearing portable chest. Dictated by: Dictated on workstation # [id number]
[2021-06-04 06:48] LABS: FREE T4 (FREE THYROXINE) 1.08 NG/DL (0.70-1.48)
[2021-06-04 06:52] LABS: INR 0.9 (0.8-1.4); PROTHROMBIN TIME PATIENT 12.9 SEC (12.2-14.7)
[2021-06-04] MEDS ORDERED: lisINopril 20 MG (PRINIVIL) TABLET PO ONE (07:15)
[2021-06-04] MEDS ORDERED: ONDANSETRON 4 MG/2 ML (SDV) Z0FRAN IVP PRN (08:45)
[2021-06-04] MEDS ORDERED: morphine INJ 4 MG/ML 1 ML (VIAL/SYRINGE) IV PRN (08:45)
[2021-06-04] MEDS ORDERED: NITROGLYCERIN 0.4 MG SL TABS BTL 25'S SL PRN (08:45)
--- NOTE | 2021-06-04 08:45 | History & Physical ---
History of Present Illness History of Present Illness Reason for visit/HPI Pt is a 65 y/o female who is known to me from clinic. She presented to the ER with complaint of chest discomfort and severely elevated blood pressure at home. She reports a blood pressure in the 200/100's which had improved by the time she went to the ER. She denies current chest pain/discomfort. she denies shortness of breath. She denies abdominal pain, nausea, dizziness, urinary urgency, or other acute complaint this morning. Date of Admission Jun 04, 2021 at 07:07 Date Seen by a Provider: Jun 04, 2021 Time Seen by a Provider: 08:40 Attending Physician Pavel Cloud MD Admitting Physician Pavel Cloud MD Consult charge hand Allergies and Home Medications Allergies Coded Allergies: Penicillins (Verified Allergy, Unknown, 06/01/21) clarithromycin (Verified Allergy, Unknown, 06/01/21) iodine (Verified Allergy, Unknown, rash locally from topical iodine, 06/04/21) Patient Home Medication List Home Medication List Reviewed: Yes Cholecalciferol (Vitamin D3) (Vitamin D3) 125 Mcg Capsule, 125 MCG PO DAILY, (Reported) Entered as Reported by: DUKE HERNANDES on 06/04/21 121 Last Action: Held Ergocalciferol (Vitamin D2) (Vitamin D2) 1,250 Mcg Capsule, 1,250 MCG PO SAT, (Reported) Entered as Reported by: DUKE HERNANDES on 06/04/211212 Last Action: Held Metoprolol Succinate (Metoprolol Succinate) 25 Mg Tab.er.24h, 25 MG PO DAILY, (Reported) Entered as Reported by: DUKE HERNANDES on 06/04/211212 Last Action: Held Past Zyguwuy-Btpzxi-Nfsttm Hx Patient Social History Marrital Status: Living Status: lives at home with spouse Employed/Student: retired Tobacco Use?: No Smoking Status: Never a Smoker Use of E-Cig and/or Vaping dev: No Substance use?: No Alcohol Use?: No Immunizations Up To Date First/Initial COVID19 Vaccinat: 2020 Tetanus Booster (TDap): Less Than 5 Years Seasonal Allergies Seasonal Allergies: No Current Status status: No status: No Advance Directives: No Communicates: Verbally Primary Language: [place] Preferred Spoken Language: [place] Is interpretation needed?: No Past Medical History Surgeries: Orthopedic (left plantar heel spur removal) Currently Using BIPAP: No Hypertension Sexually Transmitted Disease: No HIV/AIDS: No Are Your Blood Sugars Over 250: No Loss of Vision: Denies Hearing Impairment: Denies Did You Recieve Any Treatments: No Blood Disorders: No Adverse Reaction/Blood Tranf: No Family Medical History Reviewed and Corrections made Heart Disease, Hypertension Review of Systems Constitutional: No chills, No diaphoresis, No dizziness, No fever, No malaise, No weakness EENTM: mouth swelling; No blurred vision, No double vision, No hoarseness Cardiovascular: chest pain; No edema, No palpitations, No syncope Gastrointestinal: No RUQ, No LUQ, No RLQ, No LLQ, No abdominal pain, No constipation, No diarrhea, No heartburn, No loss of appetite, No melena, No nausea, No vomiting Genitourinary: no symptoms reported Musculoskeletal: muscle weakness Skin: no symptoms reported Psychiatric/Neurological: No Symptoms Reported All Other Systems Reviewed Negative Unless Noted: Yes Physical Exam Vital Signs Vital Signs - First Documented 06/04/21 06/04/21 04:55 08:30 Temp 36.4 Pulse 58 Resp 20 B/P (MAP) 174/88 (116) Pulse Ox 96 O2 Delivery Room Air Capillary Refill : Less Than 3 Seconds Height, Weight, BMI Height: '" Weight: lbs. oz. kg; 42.07 BMI Method: General Appearance: No Apparent Distress, WD/WN HEENT: PERRL/EOMI, Normal ENT Inspection, Pharynx Normal Neck: Full Range of Motion, Normal Inspection, Non Tender, Supple Respiratory: Chest Non Tender, Lungs Clear, Normal Breath Sounds, No Accessory Muscle Use, No Respiratory Distress Cardiovascular: Regular Rate, Rhythm Gastrointestinal: Normal Bowel Sounds, No Organomegaly, No Pulsatile Mass, Non Tender, Soft Rectal: Deferred Back: Normal Inspection, No Vertebral Tenderness Extremity: Normal Capillary Refill, Normal Range of Motion, Non Tender, No Calf Tenderness, No Pedal Edema Neurologic/Psychiatric: Alert, Oriented x3, No Motor/Sensory Deficits, Normal Mood/Affect Skin: Normal Color, Warm/Dry Lymphatic: No Adenopathy Assessment/Plan Assessment and Plan Chest pain Hypertensive urgency Chronic hypertension Obesity Chest pain - 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 - Echo pending - stress test to be done 06/05/21 Hypertensive urgency with Chronic hypertension - pt on SOHAM-I, metoprolol, asa Obesity - encourage weight loss as outpatient Admission Diagnosis Chest pain Hypertensive urgency Chronic hypertension Obesity Admission Status: Observation Clinical Quality Measures AMI/AHF: ASA po Prior to arrival: Yes PAVEL CLOUD MD Jun 04, 2021 08:45
[2021-06-04] MEDS ORDERED: CATHETER FLUSH 10 ML SYR IV PRN (09:00)
[2021-06-04] MEDS ORDERED: REGADENOSON 0.4 MG/5 ML SYR (LEXISCAN) IV ONE (09:00)
--- NOTE | 2021-06-04 09:04 | Consultation-Cardiology ---
HPI-Cardiology Cardiology Consultation Date of Consultation 06/04/21 Date of Admission Time Seen by Provider: 09:00 Indication: Chest pain HPI 65-year-old lady with history of hypertension, recurrent palpitation, labile blood pressure, has been having recurrent episodes of chest pain waking her up from sleep. Came to the emergency room few days ago and then returned last night with chest pain left-sided severe hypertension with blood pressure around 200. Denied any palpitation. Currently feeling better, reporting improvement in the chest pain, still hypertensive. Home Medications & Allergies Allergies: Coded Allergies: Penicillins (Verified Allergy, Unknown, 06/01/21) clarithromycin (Verified Allergy, Unknown, 06/01/21) iodine (Verified Allergy, Unknown, rash locally from topical iodine, 06/04/21) Home Medication List Reviewed: Yes VIT-Ykfbet-Rexyhq Hx Patient Social History Marital Status: Have you traveled recently?: No Alcohol Use?: No Past Medical History Discussed below Family Medical History Family Medical Hx Noncontributory Review of Systems-General Review of Systems Constitutional: see HPI; No chills, No fever EENTM: see HPI; No blurred vision, No double vision Respiratory: see HPI; No cough, No dyspnea on exertion, No hemoptysis, No orthopnea, No phlegm, No short of breath, No stridor, No wheezing, No other Cardiovascular: see HPI, chest pain; No edema, No Hx of Intervention, No palpitations, No syncope, No vascular heart diseas, No other Gastrointestinal: see HPI; No abdominal pain, No diarrhea Genitourinary: see HPI; No discharge, No dysuria Musculoskeletal: see HPI; No back pain, No joint pain Skin: see HPI; No pruritus, No rash Psychiatric/Neurological: Denies Headache, Denies Numbness All Other Systems Reviewed Negative Unless Noted: Yes (Negative excepted noted.) Reviewed Test Results Reviewed Test Results Lab Laboratory Tests Test 06/04/21 05:50 06/04/21 06:30 Range/Units White Blood Count 8.2 4.3-11.0 10^3/uL Red Blood Count 4.52 3.80-5.11 10^6/uL Hemoglobin 13.6 11.5-16.0 g/dL Hematocrit 40 35-52 % Mean Corpuscular Volume 87 80-99 fL Mean Corpuscular Hemoglobin 30 25-34 pg Mean Corpuscular Hemoglobin Concent 34 32-36 g/dL Red Cell Distribution Width 12.5 10.0-14.5 % Platelet Count 248 130-400 10^3/uL Mean Platelet Volume 8.5 L 9.0-12.2 fL Immature Granulocyte % (Auto) 0 % Neutrophils (%) (Auto) 56 42-75 % Lymphocytes (%) (Auto) 33 12-44 % Monocytes (%) (Auto) 8 0-12 % Eosinophils (%) (Auto) 2 0-10 % Basophils (%) (Auto) 1 0-10 % Neutrophils # (Auto) 4.6 1.8-7.8 10^3/uL Lymphocytes # (Auto) 2.7 1.0-4.0 10^3/uL Monocytes # (Auto) 0.6 0.0-1.0 10^3/uL Eosinophils # (Auto) 0.2 0.0-0.3 10^3/uL Basophils # (Auto) 0.0 0.0-0.1 10^3/uL Immature Granulocyte # (Auto) 0.0 0.0-0.1 10^3/uL Sodium Level 136 135-145 MMOL/L Potassium Level 4.5 3.6-5.0 MMOL/L Chloride Level 106 98-107 MMOL/L Carbon Dioxide Level 20 L 21-32 MMOL/L Anion Gap 10 5-14 MMOL/L Blood Urea Nitrogen 19 H 7-18 MG/DL Creatinine 0.73 0.60-1.30 MG/DL Estimat Glomerular Filtration Rate 90 BUN/Creatinine Ratio 26 Glucose Level 114 H 70-105 MG/DL Calcium Level 9.1 8.5-10.1 MG/DL Corrected Calcium 9.2 8.5-10.1 MG/DL Magnesium Level 2.1 1.6-2.4 MG/DL Total Bilirubin 0.5 0.1-1.0 MG/DL Aspartate Amino Transf (AST/SGOT) 18 5-34 U/L Alanine Aminotransferase (ALT/SGPT) 27 0-55 U/L Alkaline Phosphatase 60 40-136 U/L Myoglobin 29.5 10.0-92.0 NG/ML Troponin I < 0.028 <0.028 NG/ML Total Protein 6.9 6.4-8.2 GM/DL Albumin 3.9 3.2-4.5 GM/DL Thyroid Stimulating Hormone (TSH) 2.26 0.35-4.94 UIU/ML Free Thyroxine 1.08 0.70-1.48 NG/DL Prothrombin Time 12.9 12.2-14.7 SEC INR Comment 0.9 0.8-1.4 Activated Partial Thromboplast Time 31 24-35 SEC Physical Exam Physical Exam Vital Signs Vital Signs - First Documented 06/04/21 06/04/21 04:55 08:38 Temp 36.4 Pulse 58 Resp 20 B/P (MAP) 174/88 (116) Pulse Ox 96 O2 Delivery Room Air Capillary Refill : Less Than 3 Seconds Height, Weight, BMI Height: '" Weight: lbs. oz. kg; 42.07 BMI Method: General Appearance: No Apparent Distress, WD/WN Eyes: Bilateral Eye Normal Inspection, Bilateral Eye PERRL, Bilateral Eye EOMI HEENT: PERRL/EOMI; No Scleral Icterus (L), No Scleral Icterus (R) Neck: Full Range of Motion, Normal Inspection Respiratory: Lungs Clear, Normal Breath Sounds, No Accessory Muscle Use, No Respiratory Distress Cardiovascular: No Murmur, Bradycardia Gastrointestinal: Non Tender, Soft; No Distended Back: Normal Inspection, No CVA Tenderness, No Vertebral Tenderness Extremity: Normal Inspection, Normal Range of Motion, Other (moves all extremities) Neurologic/Psychiatric: Alert, Oriented x3, No Motor/Sensory Deficits, Normal Mood/Affect Skin: Normal Color, Warm/Dry Lymphatic: No Adenopathy A/P-Cardiology Admission Diagnosis Chest pain Hypertension Hyperlipidemia Palpitation Assessment/Plan Chest pain, resembling angina, multiple risk factors for coronary artery disease, patient was scheduled for stress test as an outpatient, I am planning to proceed with echocardiogram evaluation and Lexiscan stress test during this admission. Continue to monitor cardiac enzymes. Starting aspirin and Lovenox. Hypertension, labile blood pressure, was started on Toprol as an outpatient, received Toprol and lisinopril in the emergency room. I will restart her losartan and monitor blood pressure History of recurrent palpitation, episodes of shortness of breath and fatigue with loss of energy, multiple vague symptoms. She was started on Toprol, palpitations better but still having labile blood pressure. Questionable hyperlipidemia, I will evaluate lipid profile and metabolic profile Questionable underlying sleep apnea, she is scheduled for sleep study as an outpatient BMI 42, we discussed weight loss Mild bilateral carotid stenosis, nonobstructive disease, last ultrasound was done on May 25, 2021. Occasional episode of blurry vision. History of hysterectomy, tonsillectomy Clinical Quality Measures AMI/AHF: ASA po Prior to arrival: Yes KALI BAKER MD Jun 04, 2021 09:04
[2021-06-04] MEDS: PANTOPRAZOLE 40 MG (PROTONIX) TAB PO SCH (09:54)
[2021-06-04] MEDS: ENOXAPARIN 40 MG/0.4 ML (LOVENOX) SYR SQ SCH ×2 (09:54→20:57)
[2021-06-04] MEDS ORDERED: MTP25TSR PO (12:13)
[2021-06-04] MEDS ORDERED: ERGO1250 PO (12:13)
[2021-06-04] MEDS ORDERED: CHOL500050 PO (12:13)
[2021-06-04] MEDS: CATHETER FLUSH 10 ML SYR IV SCH ×2 (14:04→21:58)
[2021-06-04] MEDS ORDERED: lisINopril 20 MG (PRINIVIL) TABLET PO PRN (21:00)
[2021-06-04] MEDS ORDERED: LISI20TA26 PO (22:43)
[2021-06-04] MEDS ORDERED: NITR0.4T42 SL (22:43)
[2021-06-05] VITALS: BP 125/62
[2021-06-05 04:00] VITALS: BP 140/64
[2021-06-05] MEDS: CATHETER FLUSH 10 ML SYR IV SCH (05:30)
[2021-06-05 05:56] LABS: POTASSIUM 4.2 MMOL/L (3.6-5.0)
[2021-06-05 05:57] LABS: BASOPHILS % (AUTO) 1 % (0-10); CALCIUM 8.8 MG/DL (8.5-10.1); EOSINOPHILS # (AUTO) 0.2 10^3/uL (0.0-0.3); EOSINOPHILS % (AUTO) 3 % (0-10); HEMATOCRIT 40 % (35-52); HEMOGLOBIN 13.6 g/dL (11.5-16.0); LYMPHOCYTES # (AUTO) 2.7 10^3/uL (1.0-4.0); LYMPHOCYTES % (AUTO) 35 % (12-44); MEAN CORPUSCULAR HEMOGLOBIN 31 pg (25-34); MEAN CORPUSCULAR HGB CONC 34 g/dL (32-36); MEAN CORPUSCULAR VOLUME 89 fL (80-99); MEAN PLATELET VOLUME 8.8 fL (9.0-12.2); MONOCYTES # (AUTO) 0.6 10^3/uL (0.0-1.0); MONOCYTES % (AUTO) 8 % (0-12); NEUTROPHILS % (AUTO) 53 % (42-75); PLATELET COUNT 236 10^3/uL (130-400); WHITE BLOOD COUNT 7.5 10^3/uL (4.3-11.0)
[2021-06-05 06:02] LABS: CREATININE SERUM 0.73 MG/DL (0.60-1.30)
[2021-06-05] MEDS ORDERED: REGADENOSON 0.4 MG/5 ML SYR (LEXISCAN) IV ONE (07:53)
[2021-06-05 07:58] VITALS: BP 143/68
[2021-06-05] MEDS ORDERED: lisINopril 20 MG (PRINIVIL) TABLET PO SCH (09:00)
[2021-06-05] MEDS ORDERED: ASPIRIN E.C. 81 MG (ECOTRIN) TAB PO SCH (09:00)
[2021-06-05] MEDS: PANTOPRAZOLE 40 MG (PROTONIX) TAB PO SCH (09:28)
[2021-06-05] MEDS: ENOXAPARIN 40 MG/0.4 ML (LOVENOX) SYR SQ SCH (09:29)
--- NOTE | 2021-06-05 09:38 | Cardiology Stress Test Report ---
Stress Test Report Date of Procedure/Referring: Date of Procedure: Jun 05, 2021 PCP Nahomy Cloud MD Admitting Physician Nahomy Cloud MD Indications: Chest pain Baseline Heart Rate: 53 Baseline Blood Pressure: Blood Pressure Systolic: 143 Blood Pressure Diastolic: 68 Baseline Vitals Vital Signs Date Time Temp Pulse Resp B/P (MAP) Pulse Ox O2 Delivery O2 Flow Rate FiO2 06/04/21 04:55 36.4 58 20 174/88 (116) 96 06/04/21 08:30 Room Air Baseline EKG: Baseline EKG: NSR Summary After explaining the procedure to the patient, she signed a consent and then brought to the stress nuclear laboratory. Patient received 0.4 mg Lexiscan for stress test, ECG, heart rate and blood pressure were monitored continuously. Resting and stress dose of radio tracer were injected, imaging was acquired and reviewed in short axis, horizontal long axis and vertical long axis views. TID: 1.13 SSS: 2 SDS: 2 EF: 68 1. Patient tolerated Lexiscan well 2. Breast attenuation with mild decrease uptake at the anterior apex with mendoza btle reversibility, no significant ischemia or infarction on SPECT images 3. Normal left ventricular size, ejection fraction 68% KALI BAKER MD Jun 05, 2021 09:38
--- NOTE | 2021-06-05 09:57 | Cardiology Progress Note ---
Subjective Date Seen by Provider: Jun 05, 2021 Time Seen by Provider: 09:54 Subjective/Events-last exam Patient is laying down in bed, feeling better. No new complaint, no chest pain. Review of Systems General: No Chills, No Night Sweats, No Fatigue, No Malaise, No Appetite, No Other HEENT: No Head Aches, No Visual Changes, No Eye Pain, No Ear Pain, No Dysphasia, No Sinus Congestion, No Post Nasal Drip, No Sore Throat, No Other Pulmonary: No Dyspnea, No Cough, No Pleuritic Chest Pain, No Other Cardiovascular: No: Chest Pain, Palpitations, Orthopnea, Paroxysmal Noc. Dyspnea, Edema, Lt Headedness, Other Objective-Cardiology Exam Last Set of Vital Signs Vital Signs 06/05/21 06/05/21 06/05/21 04:00 07:58 09:00 Temp 35.8 Pulse 53 Resp 19 B/P (MAP) 143/68 (93) Pulse Ox 95 O2 Delivery Room Air I&O Intake and Output 06/05/21 00:00 Intake Total 690 ml Output Total 200 ml Balance 490 ml Intake Oral 690 ml Output Urine Total 200 ml # Voids 3 Daily Weight Change No General: Alert, Oriented X3, Cooperative HEENT: Atraumatic, PERRLA Neck: Supple, No JVD, No Thyromegaly Lungs: Clear to Auscultation, Normal Air Movement Heart: Regular Rate, Normal S1, Normal S2, No Murmurs Abdomen: Normal Bowel Sounds, Soft, No Tenderness, No Hepatosplenomegaly, No Masses Extremities: No Clubbing, No Cyanosis, No Edema, Normal Pulses, No Tenderness/Swelling Skin: No Rashes, No Breakdown, No Significant Lesion Neuro: Normal Gait, Normal Speech, Strength at 5/5 X4 Ext, Normal Tone, Sensation Intact Psych/Mental Status: Mental Status NL, Mood NL Results Lab Laboratory Tests 06/05/21 05:30 A/P-Cardiology Admission Diagnosis Chest pain Hypertension Hyperlipidemia Palpitation Assessment/Plan Chest pain, resembling angina, multiple risk factors for coronary artery disease, Lexiscan stress test done on June 05, 2021 showing normal LV size and ejection fraction 68%, typical female pattern with no ischemia or infarction 2D echo done on June 04, 2021 showing normal LV size and ejection fraction 55 to 65%, normal PA pressure. Hypertension, labile blood pressure, started on Toprol-XL 25 mg daily, did not hop picker her prescription of los[facility]. The prescription was sent from the office during her last visit. History of recurrent palpitation, episodes of shortness of breath and fatigue with loss of energy, multiple vague symptoms. Reporting improvement Hyperlipidemia, LDL 144, total cholesterol 189. Starting Lipitor 10 mg daily Sleep apnea, diagnosed recently. Possible CPAP, managed by primary care emily rodriguez BMI 42, we discussed weight loss Mild bilateral carotid stenosis, nonobstructive disease, last ultrasound was done on May 25, 2021. Occasional episode of blurry vision. History of hysterectomy, tonsillectomy Okay for discharge from cardiology standpoint, follow-up as an outpatient Continue on Toprol and starting losartan Starting Lipitor 10 mg daily Possible nocturnal CPAP as an outpatient KALI BAKER MD Jun 05, 2021 09:57
[2021-06-05 12:28] VITALS: BP 162/72
--- NOTE | 2021-06-05 12:41 | Discharge Summary ---
Diagnosis/Chief Complaint Date of Admission Jun 04, 2021 at 07:07 Date of Discharge Discharge Date: Jun 05, 2021 Discharge Time: 12:45 Admission Diagnosis Admission Diagnosis Chest pain Hypertensive urgency Chronic hypertension Obesity Discharge Diagnosis Chest pain Hypertensive urgency Chronic hypertension Obesity Severe Obstructive Sleep Apnea Reason Hospital Visit Pt is a 65 y/o female who is known to me from clinic. She presented to the ER with complaint of chest discomfort and severely elevated blood pressure at home. She reports a blood pressure in the 200/100's which had improved by the time she went to the ER. She denies current chest pain/discomfort. she denies shortness of breath. She denies abdominal pain, nausea, dizziness, urinary urgency, or other acute complaint this morning. Discharge Summary Procedures: stress test, echo Consultations dr. reis Discharge Physical Examination Allergies: Coded Allergies: Penicillins (Verified Allergy, Unknown, 06/01/21) clarithromycin (Verified Allergy, Unknown, 06/01/21) iodine (Verified Allergy, Unknown, rash locally from topical iodine, 06/04/21) Vitals & I&Os Vital Signs Date Time Temp Pulse Resp B/P (MAP) Pulse Ox O2 Delivery O2 Flow Rate FiO2 06/05/21 12:28 36.2 56 18 162/72 (102) 97 Room Air General Appearance: Alert, Oriented X3, Cooperative HEENT: Atraumatic Respiratory: Clear to Auscultation Cardiovascular: Regular Rate Abdominal: Normal Bowel Sounds, Soft Skin: No Rashes, No Breakdown Neuro: Normal Speech, Cranial Nerves 3-12 NL Psych/Mental Status: Mental Status NL, Mood NL Hospital Course Chest pain Hypertensive urgency Chronic hypertension Obesity Severe Obstructive Sleep Apnea Chest pain - Defer to Program Associate - pt was set up for outpatient work-up for her uncontrolled HTN - work up was as completed here in hospital. - stress test done 06/05/21 - see reports below: Lexiscan stress test done on June 05, 2021 showing normal LV size and ejection fraction 68%, typical female pattern with no ischemia or infarction 2D echo done on June 04, 2021 showing normal LV size and ejection fraction 55 to 65%, normal PA pressure. Hypertensive urgency with Chronic hypertension - pt on SOHAM-I, metoprolol, asa Obesity - encourage weight loss as outpatient Severe Obstructive Sleep Apnea - Pt had sleep study as an outpatient - upon review of her DATA - from 06/01/21 - it showed severe obstructive apnea - she had 195 obstructive events during the testing as well as an event that lasted over 189 seconds with an oxygen kelsey of 73% - with over 19 minutes spent at or below 88%. She qualifies for a cpap - we will have it set at [facility] and wait on the final report from Dr. Matthews before we prescribe oxygen as well. We will send the order to [facility] in [place]. The pt has symptoms of elevated blood pressure, morning headaches, and severe apnea and snoring episodes without any support - she is at high risk of cardiac arrest, atrial fibrillation or stroke without treatment. Pending Labs Laboratory Tests 06/05/21 05:30: White Blood Count 7.5, Red Blood Count 4.44, Hemoglobin 13.6, Hematocrit 40, Mean Corpuscular Volume 89, Mean Corpuscular Hemoglobin 31, Mean Corpuscular Hemoglobin Concent 34, Red Cell Distribution Width 12.6, Platelet Count 236, Mean Platelet Volume 8.8, Immature Granulocyte % (Auto) 0, Neutrophils (%) (Auto) 53, Lymphocytes (%) (Auto) 35, Monocytes (%) (Auto) 8, Eosinophils (%) (A uto) 3, Basophils (%) (Auto) 1, Neutrophils # (Auto) 4.0, Lymphocytes # (Auto) 2.7, Monocytes # (Auto) 0.6, Eosinophils # (Auto) 0.2, Basophils # (Auto) 0.0, Immature Granulocyte # (Auto) 0.0, Sodium Level 137, Potassium Level 4.2, Chloride Level 106, Carbon Dioxide Level 20, Anion Gap 11, Blood Urea Nitrogen 17, Creatinine 0.73, Estimat Glomerular Filtration Rate 90, BUN/Creatinine Ratio 23, Glucose Level 109, Calcium Level 8.8, Triglycerides Level 121, Cholesterol Level 189, LDL Cholesterol Direct 144, VLDL Cholesterol 24, HDL Cholesterol 43 Discharge Condition at discharge improved Instructions to patient/family Please see electronic discharge instructions given to patient. Discharge Medications Reviewed and agree with Discharge Medication list on patient's Discharge Instruction sheet Clinical Quality Measures AMI/AHF: ASA po Prior to arrival: Yes PAVEL DENNIS MD Jun 05, 2021 12:41
[2021-06-05] MEDS ORDERED: LOSA25TA41 PO (12:47)
--- NOTE | 2021-06-05 12:49 | Discharge Inst-Simple/Standard ---
Discharge Inst-Standard Reconcile Patient Problems Problems Reviewed?: Yes Discharge Medications New, Converted or Re-Newed RX: Transmitted to Pharmacy Patient Instructions/Follow Up Plan of Care/Instructions/FU: 1 wk [facility] [address] reis Activity as Tolerated: Yes Discharge Diet: Low Fat/Low Cholesterol Health Concerns: chest pain, hypertension Return to The Hospital For: chest pain, shortness of breath, or any concern for lifethreatening illness or injury Other Inst to Patient the cpap orders will be sent to [facility] [place] and they should contact you for getting the cpap set up. Medication List: Active Scripts Active Losartan Potassium 25 Mg Tablet 25 Mg PO DAILY 30 Days Reported Vitamin D3 (Cholecalciferol (Vitamin D3)) 125 Mcg Capsule 125 Mcg PO DAILY Vitamin D2 (Ergocalciferol (Vitamin D2)) 1,250 Mcg Capsule 1,250 Mcg PO SAT Metoprolol Succinate 25 Mg Tab.er.24h 25 Mg PO DAILY Lab results: Laboratory Tests Test 06/04/21 18:45 06/05/21 05:30 Range/Units Troponin I < 0.028 <0.028 NG/ML White Blood Count 7.5 4.3-11.0 10^3/uL Red Blood Count 4.44 3.80-5.11 10^6/uL Hemoglobin 13.6 11.5-16.0 g/dL Hematocrit 40 35-52 % Mean Corpuscular Volume 89 80-99 fL Mean Corpuscular Hemoglobin 31 25-34 pg Mean Corpuscular Hemoglobin Concent 34 32-36 g/dL Red Cell Distribution Width 12.6 10.0-14.5 % Platelet Count 236 130-400 10^3/uL Mean Platelet Volume 8.8 L 9.0-12.2 fL Immature Granulocyte % (Auto) 0 % Neutrophils (%) (Auto) 53 42-75 % Lymphocytes (%) (Auto) 35 12-44 % Monocytes (%) (Auto) 8 0-12 % Eosinophils (%) (Auto) 3 0-10 % Basophils (%) (Auto) 1 0-10 % Neutrophils # (Auto) 4.0 1.8-7.8 10^3/uL Lymphocytes # (Auto) 2.7 1.0-4.0 10^3/uL Monocytes # (Auto) 0.6 0.0-1.0 10^3/uL Eosinophils # (Auto) 0.2 0.0-0.3 10^3/uL Basophils # (Auto) 0.0 0.0-0.1 10^3/uL Immature Granulocyte # (Auto) 0.0 0.0-0.1 10^3/uL Sodium Level 137 135-145 MMOL/L Potassium Level 4.2 3.6-5.0 MMOL/L Chloride Level 106 98-107 MMOL/L Carbon Dioxide Level 20 L 21-32 MMOL/L Anion Gap 11 5-14 MMOL/L Blood Urea Nitrogen 17 7-18 MG/DL Creatinine 0.73 0.60-1.30 MG/DL Estimat Glomerular Filtration Rate 90 BUN/Creatinine Ratio 23 Glucose Level 109 H 70-105 MG/DL Calcium Level 8.8 8.5-10.1 MG/DL Triglycerides Level 121 <150 MG/DL Cholesterol Level 189 < 200 MG/DL LDL Cholesterol Direct 144 H 1-129 MG/DL VLDL Cholesterol 24 5-40 MG/DL HDL Cholesterol 43 40-60 MG/DL My orders: Orders - PAVEL DENNIS MD Transfer - Bed/Room/Location (06/04/21 18:28) Sequential Compression Device (06/04/21 22:25) Lipid Panel (06/05/21 05:00) PAVEL DENNIS MD Jun 05, 2021 12:49
[2021-06-05] MEDS ORDERED: AtorvaSTATin TABLET 10 MG TABLET PO SCH (21:00)
== END 2021-06-05 13:00 | disposition home or self-care (01) ==
LOC: EDUNIT# 04:17 → ER 04:20 → 4TH 07:07
PROVIDERS: ADMIT Family Medicine; ATTEND Family Medicine
DX: I16.0 Hypertensive urgency (principal); I10 Essential (primary) hypertension; E66.9 Obesity, unspecified; G47.33 Obstructive sleep apnea (adult) (pediatric); I24.9 Acute ischemic heart disease, unspecified; I65.23 Occlusion and stenosis of bilateral carotid arteries; E78.5 Hyperlipidemia, unspecified; Z68.41 Body mass index [BMI] 40.0-44.9, adult; Z79.899 Other long term (current) drug therapy; Z90.710 Acquired absence of both cervix and uterus; Z90.89 Acquired absence of other organs
CPT/HCPCS: 71045; 78452; 80048; 80053; 80061; 83735; 83874; 84439; 84443; 84484; 85025 ×2; 85610; 85730; 93005 ×2; 93017; 93041; 93306; 99284; A9502; 36415; G0378

== ENCOUNTER → 2021-06-10 | Outpatient (CLI) | payer MEDICARE ==
[~2021-06-10] MED LIST: CHOL500050 PO; ERGO1250 PO; LISI20TA26 PO; LOSA25TA41 PO; MTP25TSR PO; NITR0.4T42 SL
== END ==
LOC: CARD 11:48
PROVIDERS: ATTEND Internal Medicine Cardiovascular Disease
DX: I49.9 Cardiac arrhythmia, unspecified (principal); I25.10 Atherosclerotic heart disease of native coronary artery without angina pectoris; I10 Essential (primary) hypertension
CPT/HCPCS: 93225; 93226

== ENCOUNTER → 2021-07-27 | Outpatient (CLI) | payer MEDICARE ==
[~2021-07-27] VITALS: Ht 160 cm; Wt 109.0 kg
== END | disposition home or self-care (01) ==
LOC: PREOP 08:45
PROVIDERS: ATTEND Surgery
DX: Z01.818 Encounter for other preprocedural examination (principal)

== ENCOUNTER 2021-07-30 05:54 | Day surgery (SDC) | payer MEDICARE ==
[2021-07-30] VITALS (11 sets, daily range): BP systolic 112–143; BP diastolic 63–77
[~2021-07-30] VITALS: Ht 157.5 cm; Wt 109.0 kg
[2021-07-30] MEDS ORDERED: CLINDAMYCIN 600 MG/50 ML IVPB 50 ML IV ONE (06:15)
[2021-07-30] MEDS ORDERED: ONDANSETRON 4 MG/2 ML (SDV) Z0FRAN IV ONE (06:45)
[2021-07-30] MEDS ORDERED: FAMOTIDINE 20MG/2ML IV (PEPCID) IV ONE (06:45)
[2021-07-30] MEDS ORDERED: proPOfol 200 MG/20 ML (DIPRIVAN) VIAL IV ONE (07:05)
[2021-07-30] MEDS ORDERED: SEVOFLURANE (ULTANE) 15 ML INHAL SOLN ONE ×2 (07:05→08:50)
[2021-07-30] MEDS ORDERED: ONDANSETRON 4 MG/2 ML (SDV) Z0FRAN ONE ×2 (07:05→09:31)
[2021-07-30] MEDS ORDERED: fentaNYL INJ 100 MCG/2 ML AMP ONE (07:05)
[2021-07-30] MEDS ORDERED: LIDOCAINE PF 2% 5 ML (XYLOCAINE) VIAL ONE (07:05)
[2021-07-30] MEDS ORDERED: MIDAZOLAM 2 MG/2 ML (VERSED) VIAL ONE (07:05)
[2021-07-30] MEDS ORDERED: LIDOCAINE/EPI 2% 1:100,00 (XYLOCAINE) 20 ML VIAL ONE ×2 (07:18→08:21)
[2021-07-30] MEDS: LACTATED RINGERS 1,000 ML IV PRN ×2 (07:20→09:34)
--- NOTE | 2021-07-30 07:57 | Progress Note-Pre Operative ---
Pre-Operative Progress Note H&P Reviewed The H&P was reviewed, patient examined and no changes noted. Date Seen by Provider: Jul 30, 2021 Time Seen by Provider: 07:43 Date H&P Reviewed: Jul 30, 2021 Time H&P Reviewed: 07:43 Pre-Operative Diagnosis: right axillary mass NENO HANSEN DO Jul 30, 2021 07:57
[2021-07-30] MEDS ORDERED: GLYCOPYRROLATE 0.2 MG/ML (ROBINUL) 2 ML VIAL ONE (08:13)
--- NOTE | 2021-07-30 09:11 | Discharge Inst-Simple/Standard ---
Discharge Inst-Standard Patient Instructions/Follow Up Plan of Care/Instructions/FU: 2 weeks Marie Activity as Tolerated: No Discharge Diet: Regular Diet Other Inst to Patient Follow up Appt: Make appointment for 2 week. Instructions: No strenuous activity. May shower in 24 hours, no tub bath or soaking. Use incentive spirometer at home as directed. No Smoking Skin/Wound Care: Keep area clean and dry. Symptoms to Report: Appetite Changes, Extremity Discoloration, Numbness/Tingling, Swelling Increased, Bleeding Excessive, Eyesight Changes, Pain Increased, Urine Color C hange, Constipation(Persistent), Fever over 101 degree F, Pain/Pressure in chest, Urinating Difficulty, Cough Up/Vomit Blood, Heart Beat Irreg/Pounding, Pain/Pressure in jaw, Vaginal Bleeding Increase, Cramps in feet or legs, Lightheadedness, Pain/Pressure in shoulder, Diarrhea(Persistent), Memory Changes Suddenly, Questions/Concerns, Weight gain consecutive days, Dizziness/Fainting, Nausea/Vomiting, Shortness of Breath, Weight gain over 2 pounds If questions or concerns contact your physician Or seek help at emergency department. NENO HANSEN DO Jul 30, 2021 09:11
[2021-07-30] MEDS ORDERED: HYDROmorphone 2 MG/ML VIAL (DILAUDID) IV ONE (09:15)
[2021-07-30] MEDS: ONDANSETRON 4 MG/2 ML (SDV) Z0FRAN IVP PRN ×2 (09:32→10:04)
--- NOTE | 2021-07-30 09:56 | Anesthesia-General Post-Op ---
General Patient Condition Mental Status/LOC: Same as Preop Cardiovascular: Satisfactory Nausea/Vomiting: Absent Respiratory: Satisfactory Pain: Controlled Complications: Absent Post Op Complications Complications None Follow Up Care/Instructions Patient Instructions None needed. Anesthesia/Patient Condition Patient Condition Patient is doing well, no complaints, stable vital signs, no apparent adverse anesthesia problems. No complications reported per nursing. [place] [facility]: Yes EDA DOMINGO CRNA Jul 30, 2021 09:56
--- NOTE | 2021-07-30 15:37 | OPERATIVE REPORT ---
DATE OF SERVICE: 07/30/2021 PREOPERATIVE DIAGNOSIS: Right axillary mass. POSTOPERATIVE DIAGNOSIS: Right axillary mass. PROCEDURE: Excision of right axillary mass 19 x 20 cm of skin and subcutaneous tissue. SURGEON: Neno Salazar DO WOOD SCALER: None. ANESTHESIA: General. ESTIMATED BLOOD LOSS: Minimal. COMPLICATIONS: None. INDICATIONS: The patient is a 65-year-old female with a right axillary mass, which feels lipomatous. She understands risks and benefits of procedure and wishes to proceed. Consent was signed in the chart. DESCRIPTION OF PROCEDURE: The patient was taken to the operating suite, was prepped and draped in sterile fashion. Timeout was performed. Local anesthetic was infiltrated around the area of the right axilla. A 15 blade scalpel was used to make a skin incision around the area of lipomatous feeling mass. Cautery was used, the overall dimensions were 19 x 10 cm. The skin and subcutaneous tissue were then continued to be removed using cautery. The hemostasis was achieved. The wound was irrigated and hemostasis had been achieved. Subcutaneous tissues were then reapproximated using 3-0 Vicryl. Skin was then closed with hitehs. The area was washed and dried and sterile bandage was applied. The patient tolerated the procedure well without any complications. She was taken to recovery room in stable condition. 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
== END 2021-07-30 11:05 ==
LOC: SDC 05:54
PROVIDERS: ATTEND Surgery
DX: M79.89 Other specified soft tissue disorders (principal)
CPT/HCPCS: 87081; 88304

== ENCOUNTER 2022-02-27 15:02 | Emergency (ER) | payer MEDICARE ==
[~2022-02-27] VITALS: Ht 160 cm; Wt 108.0 kg
[2022-02-27] MEDS ORDERED: LACTATED RINGERS 1,000 ML IV ONE (15:15)
--- NOTE | 2022-02-27 17:01 | Diagnostic Imaging Report ---
HISTORY: Shortness of breath. TECHNIQUE: Frontal view of the chest. COMPARISON: None. FINDINGS: Lung volumes are mildly low. There are mild airspace opacities in the right lung base. There is no pleural effusion or pneumothorax. The cardiac silhouette is normal in size. IMPRESSION: Subtle right basilar airspace opacities, may represent atelectasis or infiltrate. Dictated by: Dictated on workstation # [id number]
--- NOTE | 2022-02-27 17:13 | ED General ---
General Chief Complaint: COVID19 Suspect/Confirmed Stated Complaint: COVID +/COUGH/HEADACHE/EARACHE/WEAKNESS/DIARRHEA Nursing Triage Note: PT HAS TESTED COVID+ AT HOME HAS FEVER, COUGH BODY ACHES, CONGESTION. DIARRHEA STARTED YESTERDAY (MERRICK ELLSWORTH APRN) History of Present Illness Date Seen by Provider: Feb 27, 2022 Time Seen by Provider: 15:35 Initial Comments Patient is a 66-year-old female who presents to the emergency department with fever, cough, body aches, congestion, diarrhea, and headache that began yesterday. Patient tested positive for COVID at home today. Patient's is also being evaluated for similar symptoms. He also tested positive for COVID today. Patient has not taken anything for the symptoms today. She denies any chest pain. States that she took the initial Elig[employer] & Eligio COVID-vaccine and had a Moderna booster. (MERRICK ELLSWORTH APRN) Allergies and Home Medications Allergies Coded Allergies: egg (Verified Allergy, Severe, Hives, 07/30/21) Penicillins (Verified Allergy, Unknown, 07/30/21) clarithromycin (Verified Allergy, Unknown, 07/30/21) iodine (Verified Allergy, Unknown, rash locally from topical iodine, 07/30/21) Patient Home Medication List Home Medication List Reviewed: Yes (MERRICK ELLSWORTH APRN) Cholecalciferol (Vitamin D3) (Vitamin D3) 125 Mcg Capsule, 125 MCG PO DAILY, (Reported) Entered as Reported by: DUKE HERNANDES on 06/04/21 1213 Ergocalciferol (Vitamin D2) (Vitamin D2) 1,250 Mcg Capsule, 1,250 MCG PO SAT, (Reported) Entered as Reported by: DUKE HERNANDES on 06/04/21 1213 Losartan Potassium (Losartan Potassium) 25 Mg Tablet, 25 MG PO DAILY Prescribed by: PAVEL DENNIS on 06/05/21 1247 Metoprolol Succinate (Metoprolol Succinate) 25 Mg Tab.er.24h, 25 MG PO DAILY, (Reported) Entered as Reported by: DUKE HERNANDES on 06/04/21 1213 Nirmatrelvir/Ritonavir (Paxlovid 300-100 mg Pack (Eua)) 300 Mg (150 Mg X 2)-100 Mg Tab.ds.pk, 1 EACH PO BID Prescribed by: Merrick Ellsworth on 02/27/22 1812 Nitroglycerin (Nitroglycerin) 0.4 Mg Tab.subl, 0.4 MG SL UD PRN for CHEST PAIN (ANGINA) Prescribed by: PAVEL DENNIS on 06/05/21 1247 Discontinued Medications Nirmatrelvir/Ritonavir (Paxlovid 300-100 mg Pack (Eua)) 300 Mg (150 Mg X 2)-100 Mg Tab.ds.pk, 1 EACH PO BID Prescribed by: Merrick Ellsworth on 02/27/22 1729 Review of Systems Review of Systems Constitutional: see HPI, fever, malaise EENTM: no symptoms reported Respiratory: see HPI, cough Cardiovascular: no symptoms reported Gastrointestinal: no symptoms reported (MERRICK ELLSWORTH APRN) Past Tswljhv-Ggedbz-Ysefxu Hx Patient Social History Tobacco Use?: No Substance use?: No Alcohol Use?: No Pt feels they are or have been: No (MERRICK ELLSWORTH APRN) Immunizations Up To Date Influenza Vaccine Up-to-Date: No; Not Current First/Initial COVID19 Vaccinat: may 2020 Second COVID19 Vaccination Edil: 2020 Third COVID19 Vaccination Date: 2020 (MERRICK ELLSWORTH APRN) Seasonal Allergies Seasonal Allergies: Yes (MERRICK ELLSWORTH APRN) Past Medical History Surgery/Hospitalization HX: HTN, SLEEP APNEA Surgeries: Yes (HYSTERECTOMY (PARTIAL), T&A, FOOT SURGERY) Hysterectomy, Orthopedic, Tonsillectomy Respiratory: No Currently Using CPAP: No Currently Using BIPAP: No Cardiac: Yes Hypertension, Irregular Heartbeat, Palpitations Neurological: No ORTHOTIC FITTER History: Hysterectomy Sexually Transmitted Disease: No HIV/AIDS: No Genitourinary: No Gastrointestinal: No Musculoskeletal: Yes (TWO STABLE FX IN LOWER BACK) Back Injury, Chronic Back Pain Endocrine: No HEENT: Yes (GLASSES) Loss of Vision: Denies Hearing Impairment: Denies Cancer: No Did You Recieve Any Treatments: No Psychosocial: No Integumentary: No Blood Disorders: No Adverse Reaction/Blood Tranf: No (MERRICK ELLSWORTH APRN) Family Medical History Heart Disease, Hypertension (MERRICK ELLSWORTH APRN) Physical Exam Vital Signs Vital Signs - First Documented 02/27/22 02/27/22 15:30 17:40 Temp 37.1 Pulse 83 Resp 18 B/P (MAP) 167/88 (114) Pulse Ox 97 O2 Delivery Room Air (GEMINI SAMPSON MD) Vital Signs Capillary Refill : Less Than 3 Seconds (MERRICK ELLSWORTH APRN) Height, Weight, BMI Height: '" Weight: lbs. oz. 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 Skin: Normal Color, Warm/Dry (MERRICK ELLSWORTH APRN) Progress/Results/Core Measures Suspected Sepsis SIRS Temperature: Pulse: 83 Respiratory Rate: 18 Blood Pressure 167 /88 Mean: 114 (MERRICK ELLSWORTH APRN) Results/Orders Lab Results Laboratory Tests Test 02/27/22 16:02 Range/Units Influenza Type A (RT-PCR) Not Detected Not Detecte Influenza Type B (RT-PCR) Not Detected Not Detecte SARS-CoV-2 RNA (RT-PCR) Detected H Not Detecte (GEMINI SAMPSON MD) Vital Signs/I&O 02/27/22 02/27/22 15:30 17:40 Temp 37.1 Pulse 83 71 Resp 18 20 B/P (MAP) 167/88 (114) 181/79 Pulse Ox 97 94 O2 Delivery Room Air (GEMINI SAMPSON MD) Vital Signs/I&O Capillary Refill : Less Than 3 Seconds (MERRICK ELLSWORTH APRN) Blood Pressure Mean: 114 Progress Note : Progress Note Patient is nontoxic and well-hydrated on exam. No adventitious lung sounds or increased work of breathing noted. Vital signs are reassuring. Patient is awake alert and oriented answers all questions appropriately. No nuchal rigidity noted. COVID test positive here. Chest x-ray acutely negative. Discussed supportive care and anticipatory guidance. Follow-up with PCP. Return precautions for urgent symptomology discussed. Patient was given a prescription for Paxlovid. Patient verbalized understanding. (MERRICK ELLSWORTH APRN) Departure Impression Primary Impression: COVID-19 Disposition: 01 HOME, SELF-CARE Condition: Stable Departure-Patient Inst. Decision time for Depature: 17:25 (MERRICK ELLSWORTH APRN) Referrals: PAVEL DENNIS MD (PCP/Family) Primary Care Physician Patient Instructions: COVID-19 (DC) Scripts Nirmatrelvir/Ritonavir (Paxlovid 300-100 mg Pack (Eua)) 300 Mg (150 Mg X 2)-100 Mg Tab.ds.pk 1 EACH PO BID for 5 Days, #1 PKG 0 Refills Prov: MERRICK ELLSWORTH APRN 02/27/22 ATTENDING PHYSICIAN NOTE: I was physically present as attending physician in the emergency department during the care of this patient, but I was not directly involved in the decision making or delivery of care for this patient. (GEMINI SAMPSON MD) MERRICK ELLSWORTH APRN Feb 27, 2022 17:12 GEMINI SAMPSON MD Mar 01, 2022 21:37
[2022-02-27] MEDS ORDERED: NIRM1TAB PO ×2 (17:29→18:12)
[2022-02-27 17:40] VITALS: BP 181/79
== END 2022-02-27 17:40 | disposition home or self-care (01) ==
LOC: EDUNIT# 15:02 → ER 15:04
DX: U07.1 COVID-19 (principal)
CPT/HCPCS: 71045; 87636

== ENCOUNTER → 2022-05-28 | Outpatient (CLI) | payer MEDICARE ==
[~2022-05-28] MED LIST changes: +HOLD METFORMIN - RECEIVED CONTRAST 20 ML VIAL IV SCH; +IOHEXOL 350 MG/ML 100 ML (OMNIPAQUE 350) VIAL IV ONE; +NIRM1TAB PO; +NS 100 ML (IVPB) BAG IV ONE
[2022-05-28 08:50] LABS: CREATININE SERUM 0.8 MG/DL (0.60-1.30)
--- NOTE | 2022-05-28 10:17 | Diagnostic Imaging Report ---
PROCEDURE: CT abdomen and pelvis with contrast. TECHNIQUE: Multiple contiguous axial images were obtained through the abdomen and pelvis after administration of intravenous contrast. Auto Exposure Controls were utilized during the CT exam to meet ALARA standards for radiation dose reduction. All CT scans use one or more of the following dose optimizing techniques: automated exposure control, MA and/or KvP adjustment based on patient size and exam type or iterative reconstruction. INDICATION: Difficulty urinating with left lower quadrant pain. Comparison is made with prior CT from 10/21/2015. The lung bases are clear. The liver and gallbladder are unremarkable. There is no biliary ductal dilatation. Pancreas and spleen are unremarkable. No adrenal mass is identified. Both kidneys contain renal sinus cysts. No definite calculi or hydronephrosis is identified. Aorta is nonaneurysmal. The small and large bowel loops are normal caliber. There is no obstruction. No inflammatory changes are seen. There is no ascites. Bladder is decompressed. The uterus appears to be surgically absent. Bony structures are nonacute. IMPRESSION: Essentially unremarkable CT of the abdomen and pelvis with contrast. No acute feature is detected. Dictated by: Dictated on workstation # [id number]
== END ==
LOC: RAD 08:08
PROVIDERS: ATTEND Family Medicine
DX: R10.32 Left lower quadrant pain (principal); R39.198 Other difficulties with micturition
CPT/HCPCS: 36415; 74177; 82565; 84520

== ENCOUNTER → 2022-05-28 | Outpatient (CLI) | payer MEDICARE ==
[~2022-05-28] MED LIST changes: -HOLD METFORMIN - RECEIVED CONTRAST 20 ML VIAL IV SCH; -IOHEXOL 350 MG/ML 100 ML (OMNIPAQUE 350) VIAL IV ONE; -NS 100 ML (IVPB) BAG IV ONE
--- NOTE | 2022-05-28 12:10 | Diagnostic Imaging Report ---
INDICATION: Routine screening. COMPARISON is made with prior mammograms 05/28/2021 and 03/12/2020. 2-D and 3-D bilateral screening mammography was performed with CAD. Scattered fibroglandular densities are identified bilaterally. The parenchymal pattern is stable. No mass or malignant-appearing microcalcifications are seen. Axillae are unremarkable. IMPRESSION: BI-RADS Category 1. No mammographic features suspicious for malignancy are identified. ACR BI-RADS Category 1: Negative. Result letter will be mailed to the patient. Note: At least 10% of breast cancer is not imaged by mammography. Dictated by: Dictated on workstation # [id number]
== END ==
LOC: RAD 08:09
PROVIDERS: ATTEND Nurse Practitioner Family
DX: Z12.31 Encounter for screening mammogram for malignant neoplasm of breast (principal)
CPT/HCPCS: 77063; 77067

== ENCOUNTER → 2022-12-23 | Outpatient (CLI) | payer MEDICARE ==
--- NOTE | 2022-12-23 11:25 | Diagnostic Imaging Report ---
INDICATION: Preoperative evaluation prior to knee replacement. COMPARISON: 02/27/2022. FINDINGS: Frontal and lateral views of the chest demonstrate normal heart size and pulmonary vascularity. The lungs are clear. There are no signs of infiltrate, pleural effusions or pneumothoraces. The visualized osseous structures show no acute abnormalities. IMPRESSION: 1. No acute process. No signs of infiltrates, effusions or pneumothoraces. Dictated by: Dictated on workstation # [id number]
== END ==
LOC: ORTHO 09:33
PROVIDERS: ATTEND Orthopaedic Surgery
DX: M17.0 Bilateral primary osteoarthritis of knee (principal)
CPT/HCPCS: 71046; G0463; 99203

== ENCOUNTER → 2023-01-03 | Outpatient (CLI) | payer MEDICARE ==
[~2023-01-03] VITALS: Ht 157.5 cm; Wt 95.1 kg
[~2023-01-03] MED LIST changes: +ACET-2650 PO; +ASPI-1238 PO; +FEXO180T84 PO; +MELO15TA39 PO; +OXYC10TA7 PO
[2023-01-03 11:12] VITALS: BP 124/86
== END | disposition home or self-care (01) ==
LOC: PREOP 10:44
PROVIDERS: ATTEND Orthopaedic Surgery
DX: Z01.818 Encounter for other preprocedural examination (principal); M17.0 Bilateral primary osteoarthritis of knee
CPT/HCPCS: 87081; 93005

== ENCOUNTER → 2023-01-07 | Outpatient (CLI) | payer MEDICARE ==
--- NOTE | 2023-01-07 09:54 | Diagnostic Imaging Report ---
PROCEDURE: US Gallbladder. TECHNIQUE: Multiple real-time grayscale images were obtained over the right upper quadrant in various projections. INDICATION: Right upper quadrant abdominal pain Liver parenchyma is homogeneous with normal echotexture. Portal vein is patent with hepatopetal flow. The gallbladder is clear with no stones or wall thickening. The common duct is not dilated. Pancreas is normal. Aorta and IVC are normal. Right kidney measures 10.8 cm in length and appears normal. There is no ascites. IMPRESSION: Unremarkable right upper quadrant ultrasound. Dictated by: Dictated on workstation # [id number]
== END ==
LOC: RAD 08:00
PROVIDERS: ATTEND Surgery
DX: R10.11 Right upper quadrant pain (principal)
CPT/HCPCS: 76705

== ENCOUNTER 2023-01-10 08:20 | Day surgery (SDC) | payer MEDICARE ==
[~2023-01-10] VITALS: Ht 157 cm; Wt 95.1 kg
[2023-01-10] VITALS (12 sets, daily range): BP systolic 109–169; BP diastolic 54–81
[~2023-01-10 08:20] MED LIST changes: -ACET-2650 PO; -ASPI-1238 PO; -OXYC10TA7 PO
[2023-01-10] MEDS ORDERED: ceFAZolin INJECTION 2,000 MG in NS (IVPB) 50 ML 50 ML IV ONE (08:30)
[2023-01-10] MEDS ORDERED: ONDANSETRON INJECTION 4 MG/2 ML (SDV) IV ONE (09:00)
[2023-01-10] MEDS ORDERED: FAMOTIDINE INJ 20MG/2ML VIAL IV ONE (09:00)
[2023-01-10] MEDS: LACTATED RINGERS 1,000 ML 1,000 ML IV PRN ×2 (09:09→10:35)
--- NOTE | 2023-01-10 09:29 | Progress Note-Pre Operative ---
Pre-Operative Progress Note Date of Available H&P: Dec 23, 2022 Date H&P Reviewed: Jan 10, 2023 Time H&P Reviewed: 09:20 History & Physical: H&P Reviewed, Patient Examed, No changes noted Pre-Operative Diagnosis: Left Knee Primary Osteoarthritis JOSELO BARNETT MD Jan 10, 2023 09:29
[2023-01-10] MEDS ORDERED: MIDAZOLAM INJ 2 MG/2 ML VIAL ONE (09:37)
[2023-01-10] MEDS ORDERED: TRANEXAMIC ACID 100 MG/ML 10 ML INJECTION ONE (10:49)
--- NOTE | 2023-01-10 12:44 | Operative Report - Ortho ---
Operative Report Surgeon (s)/Caponizer (s) Surgeon JOSELO BARNETT MD Caponizer n/a Pre-Operative Diagnosis Left Knee Primary Osteoarthritis Post-Operative Diagnosis same Operative Report Date of Procedure: Jan 10, 2023 Name of Procedure Performed: Robotic Assisted Left Total Knee Arthroplasty Description & Findings After obtaining informed consent and marking the patient in the preoperative holding area, the patient did receive IV antibiotics. Patient was taken to the operating room and anesthesia was induced. Surgical timeout was taken. The left lower extremity was prepped and draped in the usual sterile fashion. Incision was made and carried down to fascia. Arthrotomy was performed on the medial side of the patella. Patella was retracted laterally and knee was flexed. Found to have circumferential osteophtye around the distal femur as well as exposed bone in the medial compartment. ACL and anterior horns of the menisci were removed. 3.2 mm pins were placed in the medial femoral condyle for the femoral array and checkpoint was placed next to the pins. 3.2 mm pins were placed in the proximal tibia and checkpoint was placed there as well. Arrays were placed and tightened into position. The femur and tibia were then registered. Osteophytes were removed. The knee was then tensioned with varus and valgus stress in extension and flexion. Measurements were captured and adjustments were made to the preoperative plan to balance the flexion and extension gaps at 20 mm. Robotic arm was brought into position and all femoral cuts as well as the tibial cut were performed. Bone blocks were removed. Lamina tow motor operator was placed and the remainder of the mensici as well as posterior osteophytes were removed. Pin arrays were removed. Box cut was performed. The knee was trialed with a size 2 femur and a size 2 tibia with a 9 mm poly trial. It was found to come out to full extension and flexed beyond 120 degrees. It was stable to varus and valgus stress throughout its range of motion. This was accepted. Knee was brought out into extension and the patella was measured at less than 20 mm of thickness. Osteophytes were removed from around the perimeter of the patella. Patella tracked well through the trochlear groove of the femur. Lug holes were drilled in the distal femur. Trial implants were removed. Tibial tray was pinned and punched. The cut bone surfaces were lavaged with pulsatile normal saline. Implants were opened and assembled on the back table. Cement was mixed and applied to the cut bone surfaces. A size 2 tibial component was impacted into place and excess cement was removed using a freer. A size 2 femoral component was impacted into place and excess cement was removed using a freer. Tibial tray was lavaged with saline. A 9 mm thick polyethylene component was locked into placed and the locking mechanism was checked. Knee was brought into extension. Irrisept soak was performed and then, the knee was irrigated with normal saline. The knee was once again trialed; found to come to full extension, flexed beyond 120 degrees, and was stable to varus and valgus stress. Tourniquet was dropped and electrocautery was used for hemostasis. Fascial layer was closed with #2 Stratafix. The subcutaneous layer was closed with 2-0 Vicryl. The skin was closed with hitesh. Wound was dressed with xeroform, 4x4s, ABD, webril, and SOHAM wrap. Patient tolerated the procedure well and was stable to the recovery room. Anesthesia Type Spinal Estimated Blood Loss 150 mL Specimen(s) collected/removed None JOSELO BARNETT MD Jan 10, 2023 12:43
[2023-01-10] MEDS ORDERED: NS IV 1000 ML 1,000 ML IV SCH (12:45)
[2023-01-10] MEDS ORDERED: ONDANSETRON INJECTION 4 MG/2 ML (SDV) IV PRN (12:45)
[2023-01-10] MEDS ORDERED: BISACODYL 5 MG TABLET PO PRN (12:45)
[2023-01-10] MEDS ORDERED: ACETAMINOPHEN 500 MG TABLET PO PRN (12:45)
[2023-01-10] MEDS ORDERED: MILK OF MAGNESIA 400 MG/5 ML 30 ML UDC PO PRN (12:45)
[2023-01-10] MEDS ORDERED: BUPIVACAINE 0.5% 30 ML VIAL ONE (12:50)
[2023-01-10] MEDS ORDERED: NITROGLYCERIN 0.4 MG SL TABLETS BTL 25'S SL PRN (13:00)
[2023-01-10] MEDS ORDERED: ONDANSETRON INJECTION 4 MG/2 ML (SDV) IVP PRN (13:15)
[2023-01-10] MEDS ORDERED: morphine INJ 10 MG/ML 1ML (SYR OR VIAL) IVP ONE (13:15)
--- NOTE | 2023-01-10 13:15 | Diagnostic Imaging Report ---
INDICATION: Postoperative. TECHNIQUE: 2 portable post operative radiographs of the knee CORRELATION STUDY: None FINDINGS: There are postsurgical changes of a total knee arthroplasty. Alignment is anatomic. Installed hardware appearing unremarkable. Overlying soft tissue gas collections and skin hitesh are present. IMPRESSION: Postoperative knee replacement. Dictated by: Dictated on workstation # [id number]
[2023-01-10] MEDS: morphine INJ 4 MG/ML 1 ML (VIAL/SYRINGE) IVP PRN ×4 (13:51→21:52)
[2023-01-10] MEDS: oxyCODONE IMMEDIATE RELEASE 5 MG TABLET PO PRN ×3 (13:52→18:44)
[2023-01-10] MEDS ORDERED: diphenhydrAMINE INJ 50 MG/ML VIAL IVP NR (14:00)
[2023-01-10] MEDS: NS IV 1000 ML 1,000 ML IV SCH (14:21)
[2023-01-10] MEDS ORDERED: ACET-2650 PO ×2 (14:27)
[2023-01-10] MEDS ORDERED: LOSA25TA41 PO ×2 (14:27)
[2023-01-10] MEDS ORDERED: ERGO1250 PO ×2 (14:27)
--- NOTE | 2023-01-10 15:22 | Occ Therapy Progress Note ---
Therapy Progress Note OT order received. OT to gurpreetal 01/11/23 GWEN MATA OT Jan 10, 2023 15:22
--- NOTE | 2023-01-10 15:53 | Physical Therapy Evaluation ---
PT Evaluation-General Medical Diagnosis Admission Date 01/10/23 Medical Diagnosis: LTKA Onset Date: Jan 10, 2023 Therapy Diagnosis Therapy Diagnosis: Gait deficit, strength deficit Precautions Precautions/Isolations: Fall Prevention, Standard Precautions Weight Bear Status Right Lower Extremity: Right Full Weight Bearing Left Lower Extremity: Left Weight Bearing/Tolerated Referral Physician: Dr. Rogers Reason for Referral: Evaluation/Treatment Medical History Reviewed History: Yes Social History Home: Single Level Current Living Status: Spouse Entry Into Home: Stairs With Railing PT Steps Into Home: 3 Prior Prior Level of Function SCALE: Activities may be completed with or without assistive devices. 1-Dczzbmirht-aaqxjvg completes the activity by him/herself with no assistance from a helper. 5-Set-up or Clean-up Assistance-helper sets up or cleans up; patient completes activity. [place] assists only prior to or following the activity. 4-Supervision or Touching Assistance-helper provides verbal cues and/or touching/steadying and/or contact guard assistance as patient completes activity. Assistance may be provided throughout the activity or intermittently. 3-Partial/Moderate Assistance-helper does LESS THAN HALF the effort. [place] lifts, holds or supports trunk or limbs, but provides less than half the effort. 2-Substantial/Maximal Assistance-helper does MORE THAN HALF the effort. [place] lifts or holds trunk or limbs and provides more than half the effort. 2-Jdsppbubx-laqtnf does ALL the effort. Patient does none of the effort to complete the activity. Or, the assistance of 2 or more helpers is required for the patient to complete the activity. If activity was not attempted, code reason: 7-Patient Refused. 9-Not Applicable-not attempted and the patient did not perform the activity before the current illness, exacerbation or injury. 10-Not Attempted due to Environmental Limitations-(lack of equipment, weather restraints, etc.). 88-Not Attempted due to Medical Conditions or Safety Concerns. Bed Mobility: 6 Transfers (B,C,W/C): 6 Gait: 6 Stairs: 6 Indoor Mobility (Ambulation): Independent Stairs: Independent Prior Devices Use: None PT Evaluation-Current Subjective Patient lying supine in bed upon PT arrival, daughter in the room. Patient agreeable to treatment but reports she is in severe pain, rates it at "20/10", later reports 10/10. Objective Patient Orientation: Person, Place, Time, Situation Attachments: Davis Catheter, Polar Pack, IV ROM/Strength ROM Lower Extremities Right LE WFLs all planes. Left LE limited all planes due to pain, however knee flexion to 35 degrees and extension lacks 10 degrees Strength Lower Extremities Right LE 4/5 all planes, Left LE N/A due to pain. Sensory Vision: Functional Hearing: Impaired Sensation Right Lower Extremit: Intact Sensation Left Lower Extremity: Intact Transfers Roll Left to Right (QC): 2 Sit to Lying (QC): 2 Lying to Sitting/Side of Bed(Q: 2 Sit to Stand (QC): 3 Gait Does the Patient Walk?: No and Walking Goal IS indicated Mode of Locomotion: Walk Anticipated Mode of Locomotion: Walk Gait Assistive Device: FWW Comments/Gait Description Patient was able to sidestep ~ 8 steps with FWW, with mod A Balance Sitting Static: Fair Sitting Dynamic: Fair Standing Static: Poor Standing Dynamic: Poor Assessment/Needs Patient tolerated treatment fair and reports moderate pain relief in sitting. Patient performs all bed mobility and transfers with mod to max A. Patient performs sit to stand with mod A and Patient was able to sidestep ~ 8 steps with FWW with mod A and verbal cues. Patient in bed post treatment with all needs met, daughters in the room, nursing notified, and call light in hand. Rehab Potential: Fair Equipment Needs FWW PT Director Traffic And Planning Goals Director Traffic And Planning Goals PT Alf Goals Time Frame: Feb 26, 2023 Roll Left & Right (QC): 5 Sit to Lying (QC): 5 Lying-Sitting on Side/Bed(QC): 5 Sit to Stand (QC): 5 Chair/Thq-ls-Heade Xfer(QC): 5 Toilet Transfer (QC): 5 Car Transfer (QC): 5 Does the Patient Walk: Yes Walk 10 feet (QC): 4 Walk 50ft with 2 Turns (QC): 4 Walk 150 ft (QC): 4 1 Step (curb) (QC): 3 4 Steps (QC): 3 PT Plan Problem List Problem List: Activity Tolerance, Functional Strength, Safety, Balance, Gait, Transfer, Bed Mobility, ROM Treatment/Plan Treatment Plan: Continue Plan of Care Treatment Plan: Bed Mobility, Education, Functional Activity Daija, Functional Strength, Group Therapy, Gait, Safety, Therapeutic Exercise, Transfers Treatment Duration: Mar 03, 2023 Frequency: 11 times per week Estimated Hrs Per Day: .25 hour per day Patient and/or Family Agrees t: Yes Safety Risks/Education Patient Education: Gait Training, Transfer Techniques Teaching Recipient: Patient, Family Teaching Methods: Demonstration, Discussion Response to Teaching: Reinforcement Needed Time Time In: 1513 Time Out: 1540 DATE: Jan 10, 2023 Total Billed Treatment Time: 27 Total Billed Treatment Visit, DENIS GARCIA JOHN A PT Jan 10, 2023 15:53
[2023-01-10] MEDS: ASPIRIN enteric coated 81MG TABLET PO SCH (16:35)
[2023-01-10] MEDS: diphenhydrAMINE 25 MG TABLET PO PRN ×2 (16:35→21:52)
[2023-01-10] MEDS ORDERED: ASPIRIN enteric coated 81MG TABLET PO SCH (18:00)
[2023-01-10] MEDS: DOCUSATE SODIUM 100 MG CAPSULE PO SCH (20:12)
[2023-01-10] MEDS: CELECOXIB 100 MG CAPSULE PO SCH (20:13)
[2023-01-10] MEDS: ceFAZolin INJECTION 2,000 MG in NS (IVPB) 50 ML 50 ML IV SCH (20:13)
[2023-01-10] MEDS ORDERED: ceFAZolin INJECTION 2,000 MG in NS (IVPB) 50 ML 50 ML IV SCH (21:00)
[2023-01-11] MEDS: NS IV 1000 ML 1,000 ML IV SCH ×2 (00:39→11:03)
[2023-01-11] MEDS: morphine INJ 4 MG/ML 1 ML (VIAL/SYRINGE) IVP PRN ×5 (00:48→13:36)
[2023-01-11 04:00] VITALS: BP 135/78
[2023-01-11] MEDS: ceFAZolin INJECTION 2,000 MG in NS (IVPB) 50 ML 50 ML IV SCH (04:54)
[2023-01-11] MEDS: diphenhydrAMINE 25 MG TABLET PO PRN ×4 (04:55→23:04)
[2023-01-11 05:55] LABS: HEMOGLOBIN 11.3 g/dL (11.5-16.0)
--- NOTE | 2023-01-11 08:16 | Physical Therapy Daily Note ---
PT Daily Note-Current Subjective Patient reluctantly agrees to PT. Pain Section J - Health Conditions 1. Rarely or not at all 2. Occasionally 3. Frequently 4. Almost constantly 8. Unable to answer Pain Effect on Sleep: 4 Pain Interference with Therapy: 4 Pain Interference w/Day-to-Day: 4 Mental Status Attachments: Davis Catheter Transfers SCALE: Activities may be completed with or without assistive devices. 1-Siexoquhwu-rwmuati completes the activity by him/herself with no assistance from a helper. 5-Set-up or Clean-up Assistance-helper sets up or cleans up; patient completes activity. [place] assists only prior to or following the activity. 4-Supervision or Touching Assistance-helper provides verbal cues and/or touching/steadying and/or contact guard assistance as patient completes activity. Assistance may be provided throughout the activity or intermittently. 3-Partial/Moderate Assistance-helper does LESS THAN HALF the effort. [place] l ifts, holds or supports trunk or limbs, but provides less than half the effort. 2-Substantial/Maximal Assistance-helper does MORE THAN HALF the effort. [place] lifts or holds trunk or limbs and provides more than half the effort. 6-Essxknuua-dtngww does ALL the effort. Patient does none of the effort to complete the activity. Or, the assistance of 2 or more helpers is required for t he patient to complete the activity. If activity was not attempted, code reason: 7-Patient Refused. 9-Not Applicable-not attempted and the patient did not perform the activity before the current illness, exacerbation or injury. 10-Not Attempted due to Environmental Limitations-(lack of equipment, weather restraints, etc.). 88-Not Attempted due to Medical Conditions or Safety Concerns. Lying to Sitting/Side of Bed(Q: 4 Sit to Stand (QC): 3 Chair/Lxj-pg-Fwjab Xfer(QC): 3 Weight Bearing Right Lower Extremity: Right Full Weight Bearing Left Lower Extremity: Left Weight Bearing/Tolerated Gait Training Distance: 50' Walk 10 feet (QC): 3 Walk 50 ft with 2 Turns(QC): 3 Gait Assistive Device: FWW very slow, step to antalgic multiple standing rest periods Exercises Supine Ex: Quad Set, Heel Slides, Straight leg raise Supine Reps: 12 (AAROM left LE) Seated Therapy Exercises: Long arc quads Seated Reps: 5 Assessment Patient is very tearful during session due to uncontrolled pain left knee with meds issued. Patient requires encouragement to participate and perform exercises/ambulation. Patient limited with mobility due to pain. PT Correction Goals Correction Goals PT Supervisor Drying Goals Time Frame: Feb 26, 2023 Roll Left & Right (QC): 5 Sit to Lying (QC): 5 Lying-Sitting on Side/Bed(QC): 5 Sit to Stand (QC): 5 Chair/Nbr-wo-Megsf Xfer(QC): 5 Toilet Transfer (QC): 5 Car Transfer (QC): 5 Does the Patient Walk: Yes Walk 10 feet (QC): 4 Walk 50ft with 2 Turns (QC): 4 Walk 150 ft (QC): 4 1 Step (curb) (QC): 3 4 Steps (QC): 3 PT Plan Treatment/Plan Treatment Plan: Continue Plan of Care Treatment Plan: Bed Mobility, Education, Functional Activity Daija, Functional Strength, Group Therapy, Gait, Safety, Therapeutic Exercise, Transfers Treatment Duration: Mar 03, 2023 Frequency: 11 times per week Estimated Hrs Per Day: .25 hour per day Patient and/or Family Agrees t: Yes Time Time In: 731 Time Out: 800 DATE: Jan 11, 2023 Total Billed Treatment Time: 29 Total Billed Treatment 1 visit EX 18 min GT 11 min BIA CHILDRESS PT Jan 11, 2023 08:16
[2023-01-11] MEDS: ASPIRIN enteric coated 81MG TABLET PO SCH ×2 (08:23→17:02)
[2023-01-11] MEDS: LOSARTAN 25 MG TABLET PO SCH (08:23)
[2023-01-11] MEDS: CELECOXIB 100 MG CAPSULE PO SCH ×2 (08:23→20:33)
[2023-01-11] MEDS: DOCUSATE SODIUM 100 MG CAPSULE PO SCH ×2 (08:23→20:33)
[2023-01-11] MEDS: oxyCODONE IMMEDIATE RELEASE 5 MG TABLET PO PRN ×4 (08:24→23:04)
--- NOTE | 2023-01-11 08:30 | Progress Note - Ortho ---
Progress Note Subjective Date of Exam 01/11/23 Chief Complaint POD #1 L TKA HPI/Events since last exam significant issues with pain, anxious, tearful, concerned about having to go home Review of Systems - Allergies: Coded Allergies: egg (Verified Allergy, Severe, Hives, 07/30/21) codeine (Verified Allergy, Mild, Hives, 01/10/23) Penicillins (Verified Allergy, Unknown, 07/30/21) clarithromycin (Verified Allergy, Unknown, 07/30/21) iodine (Verified Allergy, Unknown, rash locally from topical iodine, 07/30/21) Home Meds Active Scripts Nitroglycerin (Nitroglycerin) 0.4 Mg Tab.subl, 0.4 MG SL UD PRN for CHEST PAIN (ANGINA), #20 TAB 4 Refills 1 tab every 5 min prn chest pain, mx of 3 pills in 15 min Prov:PAVEL DENNIS MD 06/04/21 Reported Medications Acetaminophen (Tylenol Arthritis) 650 Mg Tablet.er, 1300 MG PO Q8H PRN for PAIN- MILD (1-4), TAB 01/10/23 Ergocalciferol (Vitamin D2) (Vitamin D2) 1,250 Mcg (58169 Unit) Capsule, 1250 MCG PO SUN, CAP 01/10/23 Losartan Potassium (Losartan Potassium) 25 Mg Tablet, 25 MG PO DAILY, TAB 01/10/23 Meloxicam (Meloxicam) 15 Mg Tablet, 15 MG PO DAILY PRN for PAIN BREAKTROUGH, TAB 01/03/23 Fexofenadine HCl (Aimee Allergy) 180 Mg Tablet, 180 MG PO DAILY PRN for ALLERGY SYMPTOMS, TAB 01/03/23 Cholecalciferol (Vitamin D3) (Vitamin D3) 125 Mcg Capsule, 125 MCG PO DAILY, CAP 06/04/21 Discontinued Scripts Losartan Potassium (Losartan Potassium) 25 Mg Tablet, 25 MG PO DAILY for 30 Days, #30 TAB 6 Refills Prov:PAVEL DENNIS MD 06/05/21 Objective Exam L Knee: Dressing C/D/I, +DF of ankle, no s/s of DVT Vital Signs Vital Signs Date Time Temp Pulse Resp B/P (MAP) Pulse Ox O2 Delivery O2 Flow Rate FiO2 01/11/23 04:00 36.5 67 18 135/78 (97) 97 NIV CPAP 01/10/23 23:42 36.8 67 18 122/60 (80) 98 NIV CPAP 01/10/23 20:29 95 Room Air 01/10/23 19:27 36.6 67 18 143/66 (91) 96 Room Air 01/10/23 15:31 36.4 62 18 109/67 (81) 94 Room Air 01/10/23 13:42 35.9 62 18 169/72 (104) 99 Room Air 01/10/23 13:25 Room Air 01/10/23 13:25 36.5 18 131/58 (82) 98 Room Air 01/10/23 13:20 18 132/56 (81) 97 Room Air 01/10/23 13:14 Room Air 01/10/23 13:10 18 130/54 (79) 97 Room Air 01/10/23 13:05 Room Air 01/10/23 13:00 18 118/63 (81) 96 Room Air 01/10/23 12:55 Room Air 01/10/23 12:50 18 130/66 (87) 97 Room Air 01/10/23 12:45 Room Air 01/10/23 12:40 18 126/55 (78) 97 Room Air 01/10/23 12:36 Room Air 01/10/23 12:36 36.2 16 126/79 (95) 98 Room Air 01/10/23 08:35 36.2 74 22 148/81 (103) 96 Room Air I & O 01/11/23 07:00 Intake Total 2230 ml Output Total 1600 ml Balance 630 ml Lab Results Laboratory Tests 01/11/23 05:30: Hemoglobin 11.3L, Hematocrit 33L Imaging 2 views of the left knee dated 01/10/23 were reviewed from PACS and demonstrated total knee arthroplasty with components in good position, no complications Assessment and Plan Assessment Left Knee Primary OA s/p TKA Problem List Left Knee Primary OA s/p TKA Plan PT/OT DVT Prophylaxis Pain Control Inpatient rehab evaluation; may need extended care otherwise Final Diagonsis Left Knee Primary OA s/p TKA Level of the visit: Level 3 (global) JOSELO BARNETT MD Jan 11, 2023 08:30
[2023-01-11 08:38] VITALS: BP 166/87
--- NOTE | 2023-01-11 11:24 | Occ Therapy Progress Note ---
Therapy Progress Note Patient requested OT return after lunch following medication GWEN MATA OT Jan 11, 2023 11:24
[2023-01-11] MEDS: diazePAM 5 MG TABLET PO PRN (11:29)
[2023-01-11 11:33] LABS: BASOPHILS % (AUTO) 0 % (0-10); EOSINOPHILS # (AUTO) 0.2 10^3/uL (0.0-0.3); EOSINOPHILS % (AUTO) 2 % (0-10); HEMATOCRIT 34 % (35-52); HEMOGLOBIN 11.9 g/dL (11.5-16.0); LYMPHOCYTES # (AUTO) 1.5 10^3/uL (1.0-4.0); LYMPHOCYTES % (AUTO) 13 % (12-44); MEAN CORPUSCULAR HEMOGLOBIN 32 pg (25-34); MEAN CORPUSCULAR HGB CONC 35 g/dL (32-36); MEAN CORPUSCULAR VOLUME 92 fL (80-99); MEAN PLATELET VOLUME 8.6 fL (9.0-12.2); MONOCYTES # (AUTO) 1.1 10^3/uL (0.0-1.0); MONOCYTES % (AUTO) 10 % (0-12); NEUTROPHILS % (AUTO) 74 % (42-75); PLATELET COUNT 186 10^3/uL (130-400); WHITE BLOOD COUNT 10.8 10^3/uL (4.3-11.0)
[2023-01-11 11:52] LABS: ALBUMIN 3.5 GM/DL (3.2-4.5); BILIRUBIN,TOTAL 0.9 MG/DL (0.1-1.0); CALCIUM 8.1 MG/DL (8.5-10.1); CREATININE SERUM 0.8 MG/DL (0.60-1.30); POTASSIUM 3.6 MMOL/L (3.6-5.0); TOTAL PROTEIN 5.8 GM/DL (6.4-8.2)
[2023-01-11 12:02] VITALS: BP 174/84
--- NOTE | 2023-01-11 12:05 | Consultation ---
JOSE PALOMARES 01/11/23 1205: HPI History of Present Illness: HPI/Chief Complaint This is a 67 year old woman who presents day 1 total left knee replacement with severe pain that she characterizes as a 10/10 and radiating to her calf and toes. Patient had PT stop by and she screaming and crying of extreme pain. Patient says rest and the pain medication alleviates her pain. Patient is tearful in affect, and is describing the pain as the worst she has experienced. Patient says she is nervous and is not feeling well. She is regurgitating the food that she is eating. Says she had an U/S abdomen performed on Tuesday- still waiting on the results. Last night the patient says she was doing fine- her pain was a 5/10 and she was comfortable. Today feels very different and is very uncomfortable. Source: patient Date Seen 01/11/23 Attending Physician Nahomy Cloud MD PCP Admitting Physician: Attending Physician: Kaden Rogers MD Referring Physician Date of Admission Home Medications & Allergies Home Medications Reviewed patient Home Medication Reconciliation performed by pharmacy medication reconciliations chemical radiation technician and/or nursing. Patients Allergies have been reviewed. 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) Tobacco Use?: No Smoking Status: Never a Smoker Substance use?: No Alcohol Use?: No Pt feels they are or have been: No Immunizations Up To Date Date of Influenza Vaccine: Jan 02, 2021 First/Initial COVID19 Vaccinat: may 2020 Second COVID19 Vaccination Edil: 2020 Tetanus Booster (TDap): Less Than 5 Years Seasonal Allergies Seasonal Allergies: No Current Status status: No status: No Advance Directives: No Communicates: Verbally Primary Language: Cambodian Preferred Spoken Language: Cambodian Is interpretation needed?: No Sensory deficits: Vision impairment, Hearing impairment Past Medical History Surgeries: Hysterectomy, Orthopedic (right foot), Tonsillectomy Currently Using CPAP: No Currently Using BIPAP: No Hypertension, Palpitations [employer] History: Hysterectomy Sexually Transmitted Disease: No HIV/AIDS: No Chronic Diarrhea Arthritis Loss of Vision: Denies Hearing Impairment: Hard of Hearing, Hearing Aide Right, Hearing Aide Left Did You Recieve Any Treatments: No Blood Disorders: No Adverse Reaction/Blood Tranf: No (N/A) Family Medical History Heart Disease, Hypertension Review of Systems Constitutional: No chills, No fever EENTM: No hearing loss, No ear pain Respiratory: No cough, No short of breath Cardiovascular: No chest pain Gastrointestinal: abdominal pain (pt reports lower abdominal pain ) Genitourinary: No decreased output, No dysuria Musculoskeletal: other (left total knee radiating to calf and toes) Skin: No change in color, No change in hair/nails Psychiatric/Neurological: Anxiety; Denies Depressed, Denies Headache Physical Exam Physical Exam Vital Signs Vital Signs - First Documented 01/10/23 08:35 Temp 36.2 Pulse 74 Resp 22 B/P (MAP) 148/81 (103) Pulse Ox 96 O2 Delivery Room Air Capillary Refill : Less Than 3 Seconds Height, Weight, BMI Height: '" Weight: lbs. oz. kg; 38.58 BMI Method: General Appearance: Mild Distress (pt stressed about pain levels) HEENT: PERRL/EOMI, TMs Normal Neck: Full Range of Motion, Normal Inspection Respiratory: Normal Breath Sounds, No Accessory Muscle Use Cardiovascular: Regular Rate, Rhythm, No Edema Gastrointestinal: Normal Bowel Sounds, No Organomegaly Results Results/Procedures Labs Laboratory Tests 01/11/23 05:30 01/11/23 11:28 Patient resulted labs reviewed. Assessment/Plan Assessment and Plan Assess & Plan/Chief Complaint Assessment: Anxiety Out of proportion pain Hypertension Post-op anemia High BMI Vit D Deficiency JESSY with CPAP Plan: Valium for Anxiety Pain control Aggressive rehab for patients pain Medication management Control hypertension Consult surgery for regurgitation HELEN CARTER DO 01/11/232026: HPI History of Present Illness: HPI/Chief Complaint Chief complaint: Left knee replacement with severe pain and slow recovery HPI: This is a 67-year-old female clinic patient of Dr. Cloud who still works at [employer] who presents with left knee pain following replacement by Dr. Rogers. The pain is very severe and she is having significant problems participating in therapy. She wears a CPAP for JESSY. 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) Smoking Status: Never a Smoker Past Medical History Chronic Diarrhea Review of Systems Constitutional: see HPI Gastrointestinal: abdominal pain (pt reports lower abdominal pain ) Musculoskeletal: other (left total knee radiating to calf and toes) Physical Exam Physical Exam General Appearance: Anxious, Chronically ill, Mild Distress (pt stressed about pain levels) Respiratory: Lungs Clear, Normal Breath Sounds Neurologic/Psychiatric: Alert, Oriented x3, Depressed Affect Assessment/Plan Assessment and Plan Assess & Plan/Chief Complaint Assessment: Left knee replacement Severe pain with slow recovery Tearfulness Vitamin D deficiency JESSY on CPAP Plan: Inpatient rehab indicated Monitor JESSY Supervisory-Addendum Brief Verification & Attestation Participated in pt care: history, MDM, physical Personally performed: exam, history, MDM, supervision of care Care discussed with: Medical Student Procedures: n/a Results interpretation: Verified all documentation Verification and Attestation of Medical Student E/M Service A medical student performed and documented this service in my presence. I reviewed and verified all information documented by the medical student and made modifications to such information, when appropriate. I personally performed the physical exam and medical decision making. Helen Carter, Jan 11, 2023,20:23 JOSE PALOMARES Jan 11, 2023 12:05 HELEN CARTER DO Jan 11, 2023 20:27
--- NOTE | 2023-01-11 13:30 | Occupational Therapy Eval ---
OT Evaluation-General/PLF Medical Diagnosis Admission Date Medical Diagnosis: LTKA Onset Date: Jan 10, 2023 Therapy Diagnosis Therapy Diagnosis: weakness, pain w/ LB ADLS Precautions Precautions/Isolations: Standard Precautions Weight Bear Status Weight Bearing Restriction: Weight Bearing/Tolerated Location Restriction: L LE Referral Physician: Dr. Rogers Referral Reason: Self Care, Evaluation/Treatment Medical History Reviewed History: Yes Social History Home: Single Level Current Living Status: Spouse Entry Into Home: Stairs With Railing Steps Into Home: 3 ADL-Prior Level of Function SCALE: Activities may be completed with or without assistive devices. 1-Euwcmixwrs-dsdflhk completes the activity by him/herself with no assistance from a helper. 5-Set-up or Clean-up Assistance-helper sets up or cleans up; patient completes activity. Daniels assists only prior to or following the activity. 4-Supervision or Touching Assistance-helper provides verbal cues and/or touching/steadying and/or contact guard assistance as patient completes activity. Assistance may be provided throughout the activity or intermittently. 3-Partial/Moderate Assistance-helper does LESS THAN HALF the effort. Daniels lifts, holds or supports trunk or limbs, but provides less than half the effort. 2-Substantial/Maximal Assistance-helper does MORE THAN HALF the effort. Daniels lifts or holds trunk or limbs and provides more than half the effort. 2-Lgfeosndp-txhmvo does ALL the effort. Patient does none of the effort to complete the activity. Or, the assistance of 2 or more helpers is required for the patient to complete the activity. If activity was not attempted, code reason: 7-Patient Refused. 9-Not Applicable-not attempted and the patient did not perform the activity before the current illness, exacerbation or injury. 10-Not Attempted due to Environmental Limitations-(lack of equipment, weather restraints, etc.). 88-Not Attempted due to Medical Conditions or Safety Concerns. Self Care: Independent Functional Cognition: Independent Drive Self: Yes OT Current Status Subjective Agreeable to therapy Pain Numeric Pain Scale: 5-Moderate Pain Mental Status/Objective Patient Orientation: Person, Place, Time, Situation Attachments: IV, Polar Pack, SCD's Current Glasses/Contacts: Yes Hearing Aids: Yes Upper Extremity ROM WFLs , close joint approximation limited by excessive soft tissue Upper Extremity Strength -4/5 ADL-Treatment ADL-Current Required OT to don LLE footwear, attempted slip on slippers and patient does not lift LLE to insert foot into slipper. Resorted to MOTOR VEHICLE EXAMINER type slip ons. Mn assist from bed to stand CGA from toilet to stand w/ VCS and GB/ FWW Eating (QC): 6 Oral Hygiene (QC): 5 Shower/Bathe Self (QC): 7 Upper Body Dressing (QC): 4 Lower Body Dressing (QC): 3 On/Off Footwear (QC): 3 Toileting Hygiene (QC): 4 Education OT Patient Education: Correct positioning, Modified ADL techniques, Progress toward Goal/Update tx plan, Purpose of tx/functional activities, Reviewed precautions, Rehab process, Safety issues, Transfer techniques, Use of adapted equipment Teaching Recipient: Patient Teaching Methods: Demonstration, Discussion Response to Teaching: Reinforcement Needed OT Campus Coordinator Goals Campus Coordinator Goals Eating (QC): 6 Oral Hygiene (QC): 6 Toileting Hygiene (QC): 6 Shower/Bathe Self (QC): 4 Upper Body Dressing (QC): 6 Lower Body Dressing (QC): 6 On/Off Footwear (QC): 6 1=Demonstrate adherence to instructed precautions during ADL tasks. 2=Patient will verbalize/demonstrate understanding of assistive devices/modifications for ADL. 3=Patient will improve strength/tolerance for activity to enable patient to p erform ADL's. OT Education/Plan Problem List/Assessment Assessment: Decreased Activ Tolerance, Impaired Self-Care Skills Discharge Recommendations Plan/Recommendations: Continue POC Treatment Plan/Plan of Care Treatment,Training & Education: Yes Patient would benefit from OT for education, treatment and training to promote independence in ADL's, mobility, safety and/or upper extremity function for ADL's. Plan of Care: ADL Retraining, Functional Mobility, Group Exercise/Act as Ind, UE Funct Exercise/Act Treatment Duration: Jan 11, 2023 Frequency: 3 times per week (3-5 times per week) Estimated Hrs Per Day: .25 hour per day Rehab Potential: Fair Time Start Time: 13:00 Stop Time: 13:15 DATE: Jan 11, 2023 Total Time Billed (hr/min): 15 Billed Treatment Time EVM 15 min GWEN MATA OT Jan 11, 2023 13:30
--- NOTE | 2023-01-11 13:49 | Physical Therapy Daily Note ---
PT Daily Note-Current Subjective Patient reluctantly agrees to PT. Pain Numeric Pain Scale: 8 Location: Left Location Body Site: Knee Pain Description: Acute Section J - Health Conditions 1. Rarely or not at all 2. Occasionally 3. Frequently 4. Almost constantly 8. Unable to answer Pain Effect on Sleep: 4 Pain Interference with Therapy: 4 Pain Interference w/Day-to-Day: 4 Transfers SCALE: Activities may be completed with or without assistive devices. 9-Mxuvknjbbo-qetntyq completes the activity by him/herself with no assistance from a helper. 5-Set-up or Clean-up Assistance-helper sets up or cleans up; patient completes activity. Accident assists only prior to or following the activity. 4-Supervision or Touching Assistance-helper provides verbal cues and/or touching/steadying and/or contact guard assistance as patient completes activity. Assistance may be provided throughout the activity or intermittently. 3-Partial/Moderate Assistance-helper does LESS THAN HALF the effort. Accident lifts, holds or supports trunk or limbs, but provides less than half the effort. 2-Substantial/Maximal Assistance-helper does MORE THAN HALF the effort. Accident lifts or holds trunk or limbs and provides more than half the effort. 9-Kwaianwcr-mkjkji does ALL the effort. Patient does none of the effort to complete the activity. Or, the assistance of 2 or more helpers is required for the patient to complete the activity. If activity was not attempted, code reason: 7-Patient Refused. 9-Not Applicable-not attempted and the patient did not perform the activity before the current illness, exacerbation or injury. 10-Not Attempted due to Environmental Limitations-(lack of equipment, weather restraints, etc.). 88-Not Attempted due to Medical Conditions or Safety Concerns. Lying to Sitting/Side of Bed(Q: 4 Sit to Stand (QC): 4 Chair/Egt-gc-Nzsqj Xfer(QC): 4 Toilet Transfer (QC): 4 Weight Bearing Right Lower Extremity: Right Full Weight Bearing Left Lower Extremity: Left Weight Bearing/Tolerated Gait Training Distance: 125' Walk 10 feet (QC): 4 Walk 50 ft with 2 Turns(QC): 4 Gait Assistive Device: FWW slow, antalgic, step to Exercises Supine Ex: Heel Slides (10 AAROM) Supine Reps: 10 Seated Therapy Exercises: Long arc quads (8 AAROM) Seated Reps: 8 Assessment Patient improving with treatment plan with increase in functional ambulation distance and assistance required to perform sit to stand. Patient continues to have difficulty with activating left quad due to pain. Continue to increase activity. PT Longterm Goals Longterm Goals PT Registered Radiographer Goals Time Frame: Feb 26, 2023 Roll Left & Right (QC): 5 Sit to Lying (QC): 5 Lying-Sitting on Side/Bed(QC): 5 Sit to Stand (QC): 5 Chair/Jnn-vt-Rnxzj Xfer(QC): 5 Toilet Transfer (QC): 5 Car Transfer (QC): 5 Does the Patient Walk: Yes Walk 10 feet (QC): 4 Walk 50ft with 2 Turns (QC): 4 Walk 150 ft (QC): 4 1 Step (curb) (QC): 3 4 Steps (QC): 3 PT Plan Treatment/Plan Treatment Plan: Continue Plan of Care Treatment Plan: Bed Mobility, Education, Functional Activity Daija, Functional Strength, Group Therapy, Gait, Safety, Therapeutic Exercise, Transfers Treatment Duration: Mar 03, 2023 Frequency: 11 times per week Estimated Hrs Per Day: .25 hour per day Patient and/or Family Agrees t: Yes Time Time In: 1240 Time Out: 1306 DATE: Jan 11, 2023 Total Billed Treatment Time: 26 Total Billed Treatment 1 visit GT 15 min EX 11 min BIA CHILDRESS PT Jan 11, 2023 13:49
--- NOTE | 2023-01-11 14:22 | Consultation - Surgery ---
BLANCO 01/11/23 1422: History of Present Illness History of Present Illness Patient Consulted On(pilo/time) 01/11/23 14:16 Date Seen by Provider: Jan 11, 2023 Time Seen by Provider: 14:17 History of Present Illness 67 y/o female has had intermittent regurgitation of food for the past month. It is not associated with pain, laying down, heartburn, or specific types of food. She has had mild diarrhea for the past month. Patient says it felt like her throat was closing up, and is not able to swallow any food when it is closed. Patient does not feel like eating and was given pain meds due to post operative pain so she feels okay right now compared to the unbearable pain she had earlier in the day. She reports that an EGD done in 2009 showed some narrowing of the esophagus. Regurgitated food has no blood and looks chewed up. Patient underwent total left knee replacement on 01/10/23. US of abdomen was done on Tuesday-results are not out yet Allergies and Home Medications Allergies Coded Allergies: codeine (Verified Allergy, Mild, Hives, 01/10/23) Penicillins (Verified Allergy, Unknown, 07/30/21) clarithromycin (Verified Allergy, Unknown, 07/30/21) iodine (Verified Allergy, Unknown, rash locally from topical iodine, 07/30/21) Patient Home Medication List Home Medication List Reviewed: Yes Acetaminophen (Tylenol Arthritis) 650 Mg Tablet.er, 1,300 MG PO Q8H PRN for PAIN-MILD (1-4), (Reported) Entered as Reported by: DUKE HERNANDES on 01/10/231426 Last Action: Reviewed Cholecalciferol (Vitamin D3) (Vitamin D3) 125 Mcg Capsule, 125 MCG PO DAILY, (Reported) Entered as Reported by: DUKE HERNANDES on 06/04/21 1213 Last Action: Reviewed Ergocalciferol (Vitamin D2) (Vitamin D2) 1,250 Mcg (03776 Unit) Capsule, 1,250 MCG PO SUN, (Reported) Entered as Reported by: DUKE HERNANDES on 01/10/231426 Last Action: Reviewed Fexofenadine HCl (Aimee Allergy) 180 Mg Tablet, 180 MG PO DAILY PRN for ALLERGY SYMPTOMS, (Reported) Entered as Reported by: Sunshine Oliver on 01/03/23 1055 Last Action: Reviewed Losartan Potassium (Losartan Potassium) 25 Mg Tablet, 25 MG PO DAILY, (Reported) Entered as Reported by: DUKE HERNANDES on 01/10/23 142 Last Action: Reviewed Meloxicam (Meloxicam) 15 Mg Tablet, 15 MG PO DAILY PRN for PAIN BREAKTROUGH, (Reported) Entered as Reported by: Sunshine Oliver on 01/03/23 105 Last Action: Reviewed Nitroglycerin (Nitroglycerin) 0.4 Mg Tab.subl, 0.4 MG SL UD PRN for CHEST PAIN (ANGINA) Prescribed by: PAVEL DENNIS on 06/05/211246 Last Action: Reviewed Discontinued Medications Losartan Potassium (Losartan Potassium) 25 Mg Tablet, 25 MG PO DAILY Discontinued Reason: Duplicate Order Prescribed by: PAVEL DENNIS on 06/05/211246 Last Action: Discontinued Past Lafhuyf-Gpcnlk-Cgzwxt Hx Patient Social History Smoking Status: Never a Smoker 2nd Hand Smoke Exposure: No Recent Hopitalizations: No Alcohol Use?: No Immunizations Up To Date Date of Influenza Vaccine: Jan 02, 2021 Seasonal Allergies Seasonal Allergies: No Surgeries History of Surgeries: Yes (HYSTERECTOMY (PARTIAL), T&A, FOOT SURGERY) Surgeries: Hysterectomy, Orthopedic (right foot), Tonsillectomy Respiratory History of Respiratory Disorde: No Cardiovascular History of Cardiac Disorders: Yes Cardiac Disorders: Hypertension, Palpitations Neurological History of Neurological Disord: No Reproductive System Sexually Transmitted Disease: No HIV/AIDS: No 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 Genitourinary History of Genitourinary Disor: No Gastrointestinal History of Gastrointestinal Di: No Gastrointestinal Disorders: Chronic Diarrhea Musculoskeletal History of Musculoskeletal Dis: Yes (CHRONIC BACK PAIN) Musculoskeletal Disorders: Arthritis Endocrine History of Endocrine Disorders: No HEENT History of HEENT Disorders: Yes (GLASSES) Loss of Vision: Denies Hearing Impairment: Hard of Hearing, Hearing Aide Right, Hearing Aide Left Cancer History of Cancer: No Psychosocial History of Psychiatric Problem: No Integumentary History of Skin or Integumenta: No Blood Transfusions History of Blood Disorders: No Adverse Reaction to a Blood Tr: No (N/A) Family Medical History Significant Family History: Heart Disease, Hypertension Review of Systems-General Constitutional: No chills, No diaphoresis, No fever; malaise EENTM: No ear pain, No blurred vision, No vision loss, No mouth pain, No mouth swelling Respiratory: No dyspnea on exertion, No hemoptysis, No short of breath Cardiovascular: no symptoms reported; No chest pain, No edema Gastrointestinal: no symptoms reported; No constipation; diarrhea; No hematemesis, No heartburn Genitourinary: no symptoms reported; No dysuria, No hematuria Musculoskeletal: see HPI, joint pain Skin: no symptoms reported; No change in color Psychiatric/Neurological: Anxiety; Denies Depressed Physical Exam-General Problems Physical Exam Vital Signs Vital Signs - First Documented 01/10/23 08:35 Temp 36.2 Pulse 74 Resp 22 B/P (MAP) 148/81 (103) Pulse Ox 96 O2 Delivery Room Air Capillary Refill : Less Than 3 Seconds General Appearance: no apparent distress, obese HEENT: PERRL/EOMI, normal ENT inspection, pharynx normal Neck: non-tender, supple, normal inspection Respiratory: chest non-tender, lungs clear, normal breath sounds, no respiratory distress, no accessory muscle use Cardiovascular: normal peripheral pulses, regular rate, rhythm, no edema, no murmur Gastrointestinal: non tender, soft, no organomegaly Neurologic/Psychiatric: alert, normal mood/affect, oriented x 3 Skin: normal color, warm/dry Data Review Labs Laboratory Tests 01/11/23 05:30: Hemoglobin 11.3L, Hematocrit 33L 01/11/23 11:28: Hemoglobin 11.9, Hematocrit 34L, White Blood Count 10.8, Red Blood Count 3.70L, Mean Corpuscular Volume 92, Mean Corpuscular Hemoglobin 32, Mean Corpuscular Hemoglobin Concent 35, Red Cell Distribution Width 12.6, Platelet Count 186, Mean Platelet Volume 8.6L, Immature Granulocyte % (Auto) 1, Neutrophils (%) (Auto) 74, Lymphocytes (%) (Auto) 13, Monocytes (%) (Auto) 10, Eosinophils (%) (Auto) 2, Basophils (%) (Auto) 0, Neutrophils # (Auto) 8.0H, Lymphocytes # (Aut o) 1.5, Monocytes # (Auto) 1.1H, Eosinophils # (Auto) 0.2, Basophils # (Auto) 0.0, Immature Granulocyte # (Auto) 0.1, Sodium Level 138, Potassium Level 3.6, Chloride Level 107, Carbon Dioxide Level 22, Anion Gap 9, Blood Urea Nitrogen 9, Creatinine 0.80, Estimat Glomerular Filtration Rate 80, BUN/Creatinine Ratio 11, Glucose Level 127H, Calcium Level 8.1L, Corrected Calcium 8.5, Total Bilirubin 0.9, Aspartate Amino Transf (AST/SGOT) 12, Alanine Aminotransferase (ALT/SGPT) 21, Alkaline Phosphatase 37L, Total Protein 5.8L, Albumin 3.5 Assessment/Plan Assessment/Plan Assessment/Plan Assessment: esophageal regurgitation dysphagia diarrhea Plan: F/u on US barium swallow possible endoscopy NENO HANSEN DO 01/12/232112: History of Present Illness History of Present Illness History of Present Illness Consult requested by Dr. Land for dysphagia. Patient is a 67 year old female with difficulty swallowing. Does not happen every time but seems to get stuck. Had had history of having to have dilation of esophagus. Also with some epigastric discomfort. Had recent u/s of gallbladder unremarkable. Not wanting to eat. Will sometimes throw up food from day before. Just underwent left total knee replacement. Allergies and Home Medications Allergies Coded Allergies: codeine (Verified Allergy, Mild, Hives, 01/10/23) Penicillins (Verified Allergy, Unknown, 07/30/21) clarithromycin (Verified Allergy, Unknown, 07/30/21) iodine (Verified Allergy, Unknown, rash locally from topical iodine, 07/30/21) Patient Home Medication List Home Medication List Reviewed: Yes Acetaminophen (Tylenol Arthritis) 650 Mg Tablet.er, 1,300 MG PO Q8H PRN for PAIN-MILD (1-4), (Reported) Entered as Reported by: DUKE HERNANDES on 01/10/231426 Last Action: Reviewed Cholecalciferol (Vitamin D3) (Vitamin D3) 125 Mcg Capsule, 125 MCG PO DAILY, (Reported) Entered as Reported by: DUKE HERNANDES on 06/04/21 1213 Last Action: Reviewed Ergocalciferol (Vitamin D2) (Vitamin D2) 1,250 Mcg (85197 Unit) Capsule, 1,250 MCG PO SUN, (Reported) Entered as Reported by: DUKE HERNANDES on 01/10/23 142 Last Action: Reviewed Fexofenadine HCl (Aimee Allergy) 180 Mg Tablet, 180 MG PO DAILY PRN for ALLERGY SYMPTOMS, (Reported) Entered as Reported by: Sunshine Oliver on 10/2/23 1055 Last Action: Reviewed Losartan Potassium (Losartan Potassium) 25 Mg Tablet, 25 MG PO DAILY, (Reported) Entered as Reported by: DUKE HERNANDES on 01/10/23 142 Last Action: Reviewed Meloxicam (Meloxicam) 15 Mg Tablet, 15 MG PO DAILY PRN for PAIN BREAKTROUGH, (Reported) Entered as Reported by: Sunshine Oliver on 01/03/231054 Last Action: Reviewed Nitroglycerin (Nitroglycerin) 0.4 Mg Tab.subl, 0.4 MG SL UD PRN for CHEST PAIN (ANGINA) Prescribed by: PAVEL DENNIS on 06/05/211246 Last Action: Reviewed Discontinued Medications Losartan Potassium (Losartan Potassium) 25 Mg Tablet, 25 MG PO DAILY Discontinued Reason: Duplicate Order Prescribed by: PAVEL DENNIS on 06/05/211246 Last Action: Discontinued Past Oibiodz-Zhfham-Azpimo Hx Reviewed Nursing Assessment Reviewed/Agree w Nursing PMH: Yes Family Medical History Significant Family History: No Pertinent Family Hx Review of Systems-General Constitutional: No chills, No diaphoresis, No fever EENTM: No ear pain, No blurred vision Respiratory: No dyspnea on exertion, No short of breath Cardiovascular: No chest pain, No edema Gastrointestinal: dysphagia; No nausea; vomiting ((regurgitation)) Genitourinary: No decreased output, No discharge Musculoskeletal: joint pain (left postoperatively) Skin: No change in color, No change in hair/nails Psychiatric/Neurological: Denies Anxiety, Denies Depressed, Denies Emotional Problems All Other Systems Reviewed Negative Unless Noted: Yes (Negative excepted noted.) Physical Exam-General Problems Physical Exam General Appearance: no apparent distress, obese HEENT: PERRL/EOMI, normal ENT inspection Neck: non-tender, supple Respiratory: chest non-tender, no respiratory distress, no accessory muscle use Cardiovascular: regular rate, rhythm, no JVD Gastrointestinal: non tender, soft, no organomegaly Rectal: deferred Back: no CVA tenderness, no vertebral tenderness Extremities: other (left knee bandaged (postopertive left total knee)) Neurologic/Psychiatric: alert, normal mood/affect, oriented x 3 Skin: normal color, warm/dry Lymphatic: no adenopathy Assessment/Plan Assessment/Plan Assessment/Plan dysphagia epigastric abdominal pain s/p left total knee replacement u/s sound normal if continues to have pain would consider HIDA scan as outpatient started on Protonix and carafate. We'll see if this improves. If not would consider Esophogram and possible EGD to further evaluate. this could be done on outpatient basis as well. encouraged PT. DIet as tolerates disccussed with patient avoiding acidic foods. Supervisory-Addendum Brief Verification & Attestation Participated in pt care: history, MDM, physical Personally performed: exam, history, MDM, supervision of care Care discussed with: Medical Student Procedures: n/a Results interpretation: Verified all documentation Verification and Attestation of Medical Student E/M Service A medical student performed and documented this service in my presence. I reviewed and verified all information documented by the medical student and made modifications to such information, when appropriate. I personally performed the physical exam and medical decision making. Neno Hansen, Jan 11, 2023,21:13 BLANCO Jan 11, 2023 14:22 NENO HANSEN DO Jan 12, 2023 21:13
--- NOTE | 2023-01-11 14:48 | Anesthesia-Regional Post-Op ---
Regional Patient Condition Mental Status: Alert, Oriented x3 Circulation: Same as Pre-Op Headache: Absent Sensation: Full Recovery Motor Block: Absent Post Op Complications Complications None Follow Up Care/Instructions Patient Instructions None needed. Anesthesia/Patient Condition Patient is doing well, no complaints, stable vital signs, no apparent adverse anesthesia problems. No complications reported per nursing. BAILEY BAUGH CRNA Jan 11, 2023 14:48
[2023-01-11 15:53] VITALS: BP 128/75
[2023-01-11] MEDS: PANTOPRAZOLE 40 MG TABLET PO SCH (18:38)
[2023-01-11 19:46] VITALS: BP 116/71
[2023-01-11] MEDS: SUCRALFATE 1 GM TABLET PO SCH (20:33)
[2023-01-11 23:18] VITALS: BP 128/76
[2023-01-12] MEDS: diazePAM 5 MG TABLET PO PRN ×2 (00:46→22:10)
[2023-01-12 04:31] VITALS: BP 126/77
[2023-01-12 06:06] LABS: BASOPHILS % (AUTO) 0 % (0-10); EOSINOPHILS # (AUTO) 0.2 10^3/uL (0.0-0.3); EOSINOPHILS % (AUTO) 2 % (0-10); HEMATOCRIT 29 % (35-52); LYMPHOCYTES # (AUTO) 1.8 10^3/uL (1.0-4.0); LYMPHOCYTES % (AUTO) 19 % (12-44); MEAN CORPUSCULAR HEMOGLOBIN 32 pg (25-34); MEAN CORPUSCULAR HGB CONC 35 g/dL (32-36); MEAN CORPUSCULAR VOLUME 92 fL (80-99); MEAN PLATELET VOLUME 8.8 fL (9.0-12.2); MONOCYTES # (AUTO) 1.2 10^3/uL (0.0-1.0); MONOCYTES % (AUTO) 13 % (0-12); NEUTROPHILS # (AUTO) 6.1 10^3/uL (1.8-7.8); NEUTROPHILS % (AUTO) 65 % (42-75); PLATELET COUNT 175 10^3/uL (130-400); WHITE BLOOD COUNT 9.4 10^3/uL (4.3-11.0)
[2023-01-12] MEDS: SUCRALFATE 1 GM TABLET PO SCH ×4 (06:09→19:50)
[2023-01-12] MEDS: oxyCODONE IMMEDIATE RELEASE 5 MG TABLET PO PRN ×3 (06:09→19:57)
[2023-01-12] MEDS: diphenhydrAMINE 25 MG TABLET PO PRN ×3 (06:09→19:57)
[2023-01-12 06:23] LABS: ALBUMIN 3.1 GM/DL (3.2-4.5); POTASSIUM 3.7 MMOL/L (3.6-5.0)
[2023-01-12 06:24] LABS: CALCIUM 8.5 MG/DL (8.5-10.1)
[2023-01-12 06:26] LABS: TOTAL PROTEIN 5.4 GM/DL (6.4-8.2)
[2023-01-12 06:27] LABS: BILIRUBIN,TOTAL 0.9 MG/DL (0.1-1.0)
[2023-01-12 06:29] LABS: CREATININE SERUM 0.78 MG/DL (0.60-1.30)
--- NOTE | 2023-01-12 07:07 | Progress Note - Surgery ---
[facility] 01/12/23 0707: Subjective Date Seen by a Provider: Jan 12, 2023 Time Seen by a Provider: 07:00 Subjective/Events-last exam Patient feel well and has had no problems of regurgitation last night. Has yet to eat breakfast but does not think she will have any problems. She only ate some jello and other snack foods and avoided acidic foods as told yesterday. Other than constant knee pain patient has no other complaints Review of Systems General: No Chills, No Night Sweats HEENT: No Head Aches, No Visual Changes, No Eye Pain Pulmonary: No Dyspnea, No Cough Cardiovascular: No: Chest Pain, Palpitations Gastrointestinal: No: Nausea, Vomiting, Abdominal Pain Genitourinary: No Dysuria, No Hematuria Musculoskeletal: No: neck pain, shoulder pain Neurological: No: Numbness, Confusion Objective Exam Vital Signs Date Time Temp Pulse Resp B/P (MAP) Pulse Ox O2 Delivery O2 Flow Rate FiO2 01/12/23 04:31 37.2 70 18 126/77 (93) 94 Room Air 01/11/23 23:18 37.3 89 18 128/76 (93) 96 Room Air 01/11/23 20:43 Room Air 01/11/23 19:46 37.8 95 18 116/71 (86) 95 Room Air 01/11/23 15:53 37.7 86 18 128/75 (92) 90 Room Air 01/11/23 12:02 37.2 84 20 174/84 (114) 93 Room Air 01/11/23 09:13 Room Air 01/11/23 08:38 36.5 76 20 166/87 (113) 97 Room Air I & O 01/12/23 07:00 Intake Total 2490 ml Output Total 375 ml Balance 2115 ml Capillary Refill : Less Than 3 Seconds General Appearance: No Apparent Distress, Chronically ill, Obese HEENT: PERRL/EOMI, Pharynx Normal, Moist Mucous Membranes Neck: Full Range of Motion, Normal Inspection Respiratory: Chest Non Tender, Lungs Clear, Normal Breath Sounds, No Accessory Muscle Use, No Respiratory Distress Cardiovascular: Regular Rate, Rhythm, No Edema Gastrointestinal: non tender, soft, no organomegaly Neurologic/Psychiatric: Alert, Oriented x3 Skin: Normal Color, Warm/Dry Results Lab Laboratory Tests 01/11/23 11:28: White Blood Count 10.8, Red Blood Count 3.70L, Hemoglobin 11.9, Hematocrit 34L, Mean Corpuscular Volume 92, Mean Corpuscular Hemoglobin 32, Mean Corpuscular Hemoglobin Concent 35, Red Cell Distribution Width 12.6, Platelet Count 186, Mean Platelet Volume 8.6L, Immature Granulocyte % (Auto) 1, Neutrophils (%) (Auto) 74, Lymphocytes (%) (Auto) 13, Monocytes (%) (Auto) 10, Eosinophils (%) (Auto) 2, Basophils (%) (Auto) 0, Neutrophils # (Auto) 8.0H, Lymphocytes # (Auto) 1.5, Monocytes # (Auto) 1.1H, Eosinophils # (Auto) 0.2, Basophils # (Auto) 0.0, Immature Granulocyte # (Auto) 0.1, Sodium Level 138, Potassium Level 3.6, Chloride Level 107, Carbon Dioxide Level 22, Anion Gap 9, Blood Urea Nitrogen 9, Creatinine 0.80, Estimat Glomerular Filtration Rate 80, BUN/Creatinine Ratio 11, Glucose Level 127H, Calcium Level 8.1L, Corrected Calcium 8.5, Total Bilirubin 0.9, Aspartate Amino Transf (AST/SGOT) 12, Alanine Aminotransferase (ALT/SGPT) 21, Alkaline Phosphatase 37L, Total Protein 5.8L, Albumin 3.5 01/12/23 05:41: White Blood Count 9.4, Red Blood Count 3.14L, Hemoglobin 10.0L, Hematocrit 29L, Mean Corpuscular Volume 92, Mean Corpuscular Hemoglobin 32, Mean Corpuscular Hemoglobin Concent 35, Red Cell Distribution Width 12.8, Platelet Count 175, Mean Platelet Volume 8.8L, Immature Granulocyte % (Auto) 0, Neutrophils (%) (Auto) 65, Lymphocytes (%) (Auto) 19, Monocytes (%) (Auto) 13H, Eosinophils (%) (Auto) 2, Basophils (%) (Auto) 0, Neutrophils # (Auto) 6.1, Lymphocytes # (Auto) 1.8, Monocytes # (Auto) 1.2H, Eosinophils # (Auto) 0.2, Basophils # (Auto) 0.0, Immature Granulocyte # (Auto) 0.0, Sodium Level 137, Potassium Level 3.7, Chloride Level 106, Carbon Dioxide Level 25, Anion Gap 6, Blood Urea Nitrogen 6L , Creatinine 0.78, Estimat Glomerular Filtration Rate 82, BUN/Creatinine Ratio 8, Glucose Level 117H, Calcium Level 8.5, Corrected Calcium 9.2, Total Bilirubin 0.9, Aspartate Amino Transf (AST/SGOT) 15, Alanine Aminotransferase (ALT/SGPT) 17, Alkaline Phosphatase 38L, Total Protein 5.4L, Albumin 3.1L Assessment/Plan Assessment/Plan Assessment/Plan Assessment: esophageal regurgitation dysphagia diarrhea - resolving Plan: continue pantoprazole and sucralfate diet modification F/u on US- unremarkable barium swallow- if regurg still persists NENO SALAZAR DO 01/12/232120: Subjective Subjective/Events-last exam Doing well. Having a better day. Swallowing better. Tolerating food better today. Denies any other complaints. Denies n/v fever sweats chills shortness of breath or chest pain. Objective Exam General Appearance: No Apparent Distress, Obese HEENT: PERRL/EOMI, Normal ENT Inspection Neck: Full Range of Motion, Normal Inspection Respiratory: Chest Non Tender, No Accessory Muscle Use, No Respiratory Distress Cardiovascular: Regular Rate, Rhythm, No JVD Gastrointestinal: non tender, soft Extremity: No Non Tender; Other (left leg bandage from left total knee) Neurologic/Psychiatric: Alert, Oriented x3 Skin: Normal Color, Warm/Dry Lymphatic: No Adenopathy Assessment/Plan Assessment/Plan Assessment/Plan dysphagia epigastric abdominal pain s/p left total knee replacement previous u/s sound normal if continues to have pain would consider HIDA scan as outpatient On Protonix and carafate. Symptoms improving, would consider Esophogram and possible EGD to further evaluate if worsening. this could be done on outpatient basis as well. encouraged PT. patient avoiding acidic foods. Supervisory-Addendum Brief Verification & Attestation Participated in pt care: history, MDM, physical Personally performed: exam, history, MDM, supervision of care Care discussed with: Medical Student Procedures: n/a Results interpretation: Verified all documentation Verification and Attestation of Medical Student E/M Service A medical student performed and documented this service in my presence. I reviewed and verified all information documented by the medical student and made modifications to such information, when appropriate. I personally performed the physical exam and medical decision making. Neno Salazar, Jan 12, 2023,21:20 BLANCO Jan 12, 2023 07:07 NENO SALAZAR DO Jan 12, 2023 21:21
[2023-01-12 07:14] VITALS: BP 111/58
[2023-01-12] MEDS: PANTOPRAZOLE 40 MG TABLET PO SCH (08:08)
[2023-01-12] MEDS: CELECOXIB 100 MG CAPSULE PO SCH ×3 (08:08→19:50)
[2023-01-12] MEDS: ASPIRIN enteric coated 81MG TABLET PO SCH ×2 (08:08→18:07)
[2023-01-12] MEDS: DOCUSATE SODIUM 100 MG CAPSULE PO SCH ×2 (08:09→19:50)
[2023-01-12] MEDS: LOSARTAN 25 MG TABLET PO SCH (08:09)
--- NOTE | 2023-01-12 08:52 | Progress Note ---
JOSE PALOMARES 01/12/23 0852: Subjective Date Seen by a Provider: Jan 12, 2023 Subjective/Events-last exam 67 year old woman who presents day 2 total left knee replacement with severe pain. Patient says that she had an uneventful night and slept well. Patient said PT yesterday was still very uncomfortable and that the pain was unbearable. Mood is improved since yesterday. Patient reports difficulty ambulating and moving in the bed- having extreme pain when moving. Patient says the pain medication is working well when she gets is as scheduled. Patient still reports no bowel movements. Did not have any regurgitation of food this morning. Still eating minimal. Nervous about PT coming by later. Focused Exam Sepsis Stage: Ruled Out Objective Exam Last Set of Vital Signs Vital Signs Date Time Temp Pulse Resp B/P (MAP) Pulse Ox O2 Delivery O2 Flow Rate FiO2 01/12/23 07:14 36.9 101 16 111/58 (75) 91 Room Air Capillary Refill : Less Than 3 Seconds I&O Intake and Output 01/12/23 00:00 Intake Total 2390 ml Output Total 575 ml Balance 1815 ml Intake Oral 1740 ml IV Total 650 ml Output Urine Total 575 ml # Voids 2 General: Alert, Oriented X3, Cooperative HEENT: Atraumatic, PERRLA Neck: Supple, No JVD Lungs: Clear to Auscultation, Normal Air Movement Heart: Regular Rate, No Murmurs Abdomen: Normal Bowel Sounds, Soft Extremities: No Clubbing, No Cyanosis Skin: No Rashes, No Breakdown Neuro: Normal Speech, Sensation Intact Results Lab Laboratory Tests 01/11/23 11:28: White Blood Count 10.8, Red Blood Count 3.70L, Hemoglobin 11.9, Hematocrit 34L, Mean Corpuscular Volume 92, Mean Corpuscular Hemoglobin 32, Mean Corpuscular Hemoglobin Concent 35, Red Cell Distribution Width 12.6, Platelet Count 186, Mean Platelet Volume 8.6L, Immature Granulocyte % (Auto) 1, Neutrophils (%) (Auto) 74, Lymphocytes (%) (Auto) 13, Monocytes (%) (Auto) 10, Eosinophils (%) (Auto) 2, Basophils (%) (Auto) 0, Neutrophils # (Auto) 8.0H, Lymphocytes # (Auto) 1.5, Monocytes # (Auto) 1.1H, Eosinophils # (Auto) 0.2, Basophils # (Auto) 0.0, Immature Granulocyte # (Auto) 0.1, Sodium Level 138, Potassium Level 3.6, Chloride Level 107, Carbon Dioxide Level 22, Anion Gap 9, Blood Urea Nitrogen 9, Creatinine 0.80, Estimat Glomerular Filtration Rate 80, BUN/Creatinine Ratio 11, Glucose Level 127H, Calcium Level 8.1L, Corrected Calcium 8.5, Total Bilirubin 0.9, Aspartate Amino Transf (AST/SGOT) 12, Alanine Aminotransferase (ALT/SGPT) 21, Alkaline Phosphatase 37L, Total Protein 5.8L, Albumin 3.5 01/12/23 05:41: White Blood Count 9.4, Red Blood Count 3.14L, Hemoglobin 10.0L, Hematocrit 29L, Mean Corpuscular Volume 92, Mean Corpuscular Hemoglobin 32, Mean Corpuscular Hemoglobin Concent 35, Red Cell Distribution Width 12.8, Platelet Count 175, Mean Platelet Volume 8.8L, Immature Granulocyte % (Auto) 0, Neutrophils (%) (Auto) 65, Lymphocytes (%) (Auto) 19, Monocytes (%) (Auto) 13H, Eosinophils (%) (Auto) 2, Basophils (%) (Auto) 0, Neutrophils # (Auto) 6.1, Lymphocytes # (Auto) 1.8, Monocytes # (Auto) 1.2H, Eosinophils # (Auto) 0.2, Basophils # (Auto) 0.0, Immature Granulocyte # (Auto) 0.0, Sodium Level 137, Potassium Level 3.7, Chloride Level 106, Carbon Dioxide Level 25, Anion Gap 6, Blood Urea Nitrogen 6L , Creatinine 0.78, Estimat Glomerular Filtration Rate 82, BUN/Creatinine Ratio 8, Glucose Level 117H, Calcium Level 8.5, Corrected Calcium 9.2, Total Bilirubin 0.9, Aspartate Amino Transf (AST/SGOT) 15, Alanine Aminotransferase (ALT/SGPT) 17, Alkaline Phosphatase 38L, Total Protein 5.4L, Albumin 3.1L Assessment/Plan Assessment/Plan Assess & Plan/Chief Complaint Assessment: Anxiety Out of proportion pain Hypertension Post-op anemia High BMI Vit D Deficiency JESSY with CPAP Plan: Valium for Anxiety Pain control Aggressive rehab for patients pain Medication management Control hypertension HELEN CARTER DO 01/13/23 0437: Subjective Time Seen by a Provider: 11:00 Subjective/Events-last exam Patient doing much better but pain is severe when she walks No falls Bowels are moving yet so we will add meds Objective Exam General: Alert, Oriented X3, Cooperative, No Acute Distress Lungs: Clear to Auscultation, Normal Air Movement Heart: Regular Rate, Normal S1, Normal S2, No Murmurs Psych/Mental Status: Mental Status NL, Mood NL Assessment/Plan Assessment/Plan Assess & Plan/Chief Complaint Left knee replacement with severe pain and slow recovery Supervisory-Addendum Brief Verification & Attestation Participated in pt care: history, MDM, physical Personally performed: exam, history, MDM, supervision of care Care discussed with: Medical Student Procedures: n/a Results interpretation: Verified all documentation Verification and Attestation of Medical Student E/M Service A medical student performed and documented this service in my presence. I reviewed and verified all information documented by the medical student and made modifications to such information, when appropriate. I personally performed the physical exam and medical decision making. Helen Carter, Jan 13, 2023,04:35 JOSE PALOMARES Jan 12, 2023 08:52 HELEN CARTER DO Jan 13, 2023 04:37
--- NOTE | 2023-01-12 11:09 | Occupational Ther Daily Note ---
OT Current Status-Daily Note Subjective Moving more timely than yesterday, pain is better under control Pain Numeric Pain Scale: 5-Moderate Pain Mental Status/Objective Patient Orientation: Person, Place, Time, Situation ADL-Treatment Lowered HOB to represent home, patient required VCs for sequence to transition from supine to sitting EOB. Dons LB PJ pants and slip on slippers w/ CGA and extra time. Transfer from bed to stand, CGA, transfer from stand to toilet Min assist and instruction for hand placement as patient holds GB w/ B hands and no GBs at home Therapy Code Descriptions/Definitions Functional [place] Measure: 0=Not Assessed/NA 4=Minimal Assistance 1=Total Assistance 5=Supervision or Setup 2=Maximal Assistance 6=Modified [place] 3=Moderate Assistance 7=Complete IndependenceSCALE: Activities may be completed with or without assistive devices. 7-Mgqcexnvvd-dfsnuei completes the activity by him/herself with no assistance from a helper. 5-Set-up or Clean-up Assistance-helper sets up or cleans up; patient completes activity. [place] assists only prior to or following the activity. 4-Supervision or Touching Assistance-helper provides verbal cues and/or touching/steadying and/or contact guard assistance as patient completes activity. Assistance may be provided throughout the activity or intermittently. 3-Partial/Moderate Assistance-helper does LESS THAN HALF the effort. Arnett li fts, holds or supports trunk or limbs, but provides less than half the effort. 2-Substantial/Maximal Assistance-helper does MORE THAN HALF the effort. Arnett lifts or holds trunk or limbs and provides more than half the effort. 5-Uezsljgco-tjbsaz does ALL the effort. Patient does none of the effort to complete the activity. Or, the assistance of 2 or more helpers is required for the patient to complete the activity. If activity was not attempted, code reason: 7-Patient Refused. 9-Not Applicable-not attempted and the patient did not perform the activity before the current illness, exacerbation or injury. 10-Not Attempted due to Environmental Limitations-(lack of equipment, weather restraints, etc.). 88-Not Attempted due to Medical Conditions or Safety Concerns. Eating (QC): 6 Oral Hygiene (QC): 5 (stand at sink w/ FWW) Upper Body Dressing (QC): 5 Lower Body Dressing (QC): 4 On/Off Footwear: 4 Toileting Hygiene (QC): 5 Toilet Transfer (QC): 4 Education OT Patient Education: Correct positioning, Exercise program, Modified ADL techniques, Progress toward Goal/Update tx plan, Purpose of tx/functional activities, Reviewed precautions, Rehab process, Safety issues, Transfer techniques, Use of adapted equipment Teaching Recipient: Patient Teaching Methods: Demonstration, Discussion Response to Teaching: Reinforcement Needed OT Senior Care Goals Help Desk Technician Goals Eating (QC): 6 Oral Hygiene (QC): 6 Toileting Hygiene (QC): 6 Shower/Bathe Self (QC): 4 Upper Body Dressing (QC): 6 Lower Body Dressing (QC): 6 On/Off Footwear (QC): 6 1=Demonstrate adherence to instructed precautions during ADL tasks. 2=Patient will verbalize/demonstrate understanding of assistive devices/modifications for ADL. 3=Patient will improve strength/tolerance for activity to enable patient to perform ADL's. OT Education/Plan Problem List/Assessment Assessment: Impaired Self-Care Skills Discharge Recommendations Plan/Recommendations: Continue POC Treatment Plan/Plan of Care Patient would benefit from OT for education, treatment and training to promote independence in ADL's, mobility, safety and/or upper extremity function for ADL's. Plan of Care: ADL Retraining, Functional Mobility, Group Exercise/Act as Ind, UE Funct Exercise/Act Treatment Duration: Jan 11, 2023 Frequency: 3 times per week (3-5 times per week) Estimated Hrs Per Day: .25 hour per day Rehab Potential: Fair Time Start Time: 09:16 Stop Time: 09:31 DATE: Jan 12, 2023 Total Time Billed (hr/min): 15 Billed Treatment Time ADLs 15 min GWEN MATA OT Jan 12, 2023 11:09
[2023-01-12 11:19] VITALS: BP 123/58
--- NOTE | 2023-01-12 11:54 | Physical Therapy Daily Note ---
PT Daily Note-Current Subjective Patient standing at sink with OT upon PT arrival, agreeable to treatment. Patient rates pain at 5/10 currently in left knee. Pain Section J - Health Conditions 1. Rarely or not at all 2. Occasionally 3. Frequently 4. Almost constantly 8. Unable to answer Pain Effect on Sleep: 4 Pain Interference with Therapy: 4 Pain Interference w/Day-to-Day: 4 Transfers SCALE: Activities may be completed with or without assistive devices. 7-Trjzofayuq-achtmru completes the activity by him/herself with no assistance from a helper. 5-Set-up or Clean-up Assistance-helper sets up or cleans up; patient completes activity. [place] assists only prior to or following the activity. 4-Supervision or Touching Assistance-helper provides verbal cues and/or touching/steadying and/or contact guard assistance as patient completes activity. Assistance may be provided throughout the activity or intermittently. 3-Partial/Moderate Assistance-helper does LESS THAN HALF the effort. [place] lifts, holds or supports trunk or limbs, but provides less than half the effort. 2-Substantial/Maximal Assistance-helper does MORE THAN HALF the effort. [place] lifts or holds trunk or limbs and provides more than half the effort. 0-Fnglrzcjl-tifubc does ALL the effort. Patient does none of the effort to complete the activity. Or, the assistance of 2 or more helpers is required for the patient to complete the activity. If activity was not attempted, code reason: 7-Patient Refused. 9-Not Applicable-not attempted and the patient did not perform the activity before the current illness, exacerbation or injury. 10-Not Attempted due to Environmental Limitations-(lack of equipment, weather restraints, etc.). 88-Not Attempted due to Medical Conditions or Safety Concerns. Sit to Stand (QC): 4 Chair/Uzx-ts-Wqhzr Xfer(QC): 4 Weight Bearing Right Lower Extremity: Right Full Weight Bearing Left Lower Extremity: Left Weight Bearing/Tolerated Gait Training Does the Patient Walk?: Yes Distance: 150' Walk 10 feet (QC): 4 Walk 50 ft with 2 Turns(QC): 4 Walk 150 ft (QC): 4 Gait Assistive Device: FWW Exercises Supine Ex: Ankle pumps, Quad Set, Glut sets Supine Reps: 20 Seated Therapy Exercises: Long arc quads, Hamstring Curls Seated Reps: 10 Assessment Current Status: Fair Progress Patient tolerated treatment well. Performs all observed transfers with SBA. Patient ambulates 150' with FWW. Patient in chair post treatment with all needs met, nursing notified, call light in hand. PT Historical Site Guide Goals Jail Goals PT Historical Site Guide Goals Time Frame: Feb 26, 2023 Roll Left & Right (QC): 5 Sit to Lying (QC): 5 Lying-Sitting on Side/Bed(QC): 5 Sit to Stand (QC): 5 Chair/Ajy-sf-Yhmrp Xfer(QC): 5 Toilet Transfer (QC): 5 Car Transfer (QC): 5 Does the Patient Walk: Yes Walk 10 feet (QC): 4 Walk 50ft with 2 Turns (QC): 4 Walk 150 ft (QC): 4 1 Step (curb) (QC): 3 4 Steps (QC): 3 PT Plan Treatment/Plan Treatment Plan: Continue Plan of Care Treatment Plan: Bed Mobility, Education, Functional Activity Daija, Functional Strength, Group Therapy, Gait, Safety, Therapeutic Exercise, Transfers Treatment Duration: Mar 03, 2023 Frequency: 11 times per week Estimated Hrs Per Day: .25 hour per day Patient and/or Family Agrees t: Yes Safety Risks/Education Patient Education: Gait Training, Transfer Techniques Teaching Recipient: Patient Teaching Methods: Demonstration, Discussion Response to Teaching: Verbalize Understanding, Return Demonstration Time Time In: 919 Time Out: 938 DATE: Jan 12, 2023 Total Billed Treatment Time: 19 Total Billed Treatment Visit, GT JOVANNA ODONNELL PT Jan 12, 2023 11:54
[2023-01-12] MEDS ORDERED: LACTULOSE SYRUP 10GM/15ML 30ML UDC PO NR (12:15)
[2023-01-12] MEDS ORDERED: SENNOSIDES 8.6 MG TABLET PO NR (12:15)
--- NOTE | 2023-01-12 12:39 | Progress Note - Ortho ---
Progress Note Subjective Date of Exam 01/12/23 Chief Complaint POD #2 L TKA HPI/Events since last exam much improved from pain standpoint, awaiting information on rehab versus considering extended care Review of Systems - Allergies: Coded Allergies: codeine (Verified Allergy, Mild, Hives, 01/10/23) Penicillins (Verified Allergy, Unknown, 07/30/21) clarithromycin (Verified Allergy, Unknown, 07/30/21) iodine (Verified Allergy, Unknown, rash locally from topical iodine, 07/30/21) Home Meds Active Scripts Nitroglycerin (Nitroglycerin) 0.4 Mg Tab.subl, 0.4 MG SL UD PRN for CHEST PAIN (ANGINA), #20 TAB 4 Refills 1 tab every 5 min prn chest pain, mx of 3 pills in 15 min Prov:PAVEL DENNIS MD 06/04/21 Reported Medications Acetaminophen (Tylenol Arthritis) 650 Mg Tablet.er, 1300 MG PO Q8H PRN for PAIN- MILD (1-4), TAB 01/10/23 Ergocalciferol (Vitamin D2) (Vitamin D2) 1,250 Mcg (25919 Unit) Capsule, 1250 MCG PO SUN, CAP 01/10/23 Losartan Potassium (Losartan Potassium) 25 Mg Tablet, 25 MG PO DAILY, TAB 01/10/23 Meloxicam (Meloxicam) 15 Mg Tablet, 15 MG PO DAILY PRN for PAIN BREAKTROUGH, TAB 01/03/23 Fexofenadine HCl (Aimee Allergy) 180 Mg Tablet, 180 MG PO DAILY PRN for ALLERGY SYMPTOMS, TAB 01/03/23 Cholecalciferol (Vitamin D3) (Vitamin D3) 125 Mcg Capsule, 125 MCG PO DAILY, CAP 06/04/21 Discontinued Scripts Losartan Potassium (Losartan Potassium) 25 Mg Tablet, 25 MG PO DAILY for 30 Days, #30 TAB 6 Refills Prov:PAVEL DENNIS MD 06/05/21 Objective Exam L Knee: Dressing C/D/I, +DF of ankle, no s/s of DVT Vital Signs Vital Signs Date Time Temp Pulse Resp B/P (MAP) Pulse Ox O2 Delivery O2 Flow Rate FiO2 01/12/23 11:19 36.8 92 16 123/58 (79) 90 Room Air 01/12/23 08:00 91 Room Air 01/12/23 07:14 36.9 101 16 111/58 (75) 91 Room Air 01/12/23 04:31 37.2 70 18 126/77 (93) 94 Room Air 01/11/23 23:18 37.3 89 18 128/76 (93) 96 Room Air 01/11/23 20:43 Room Air 01/11/23 19:46 37.8 95 18 116/71 (86) 95 Room Air 01/11/23 15:53 37.7 86 18 128/75 (92) 90 Room Air I & O 01/12/23 07:00 Intake Total 2490 ml Output Total 375 ml Balance 2115 ml Lab Results Laboratory Tests 01/12/23 05:41: White Blood Count 9.4, Red Blood Count 3.14L, Hemoglobin 10.0L, Hematocrit 29L, Mean Corpuscular Volume 92, Mean Corpuscular Hemoglobin 32, Mean Corpuscular Hemoglobin Concent 35, Red Cell Distribution Width 12.8, Platelet Count 175, Mean Platelet Volume 8.8L, Immature Granulocyte % (Auto) 0, Neutrophils (%) (Auto) 65, Lymphocytes (%) (Auto) 19, Monocytes (%) (Auto) 13H, Eosinophils (%) (Auto) 2, Basophils (%) (Auto) 0, Neutrophils # (Auto) 6.1, Lymphocytes # (Auto) 1.8, Monocytes # (Auto) 1.2H, Eosinophils # (Auto) 0.2, Basophils # (Auto) 0.0, Immature Granulocyte # (Auto) 0.0, Sodium Level 137, Potassium Level 3.7, Chloride Level 106, Carbon Dioxide Level 25, Anion Gap 6, Blood Urea Nitrogen 6L , Creatinine 0.78, Estimat Glomerular Filtration Rate 82, BUN/Creatinine Ratio 8, Glucose Level 117H, Calcium Level 8.5, Corrected Calcium 9.2, Total Bilirubin 0.9, Aspartate Amino Transf (AST/SGOT) 15, Alanine Aminotransferase (ALT/SGPT) 17, Alkaline Phosphatase 38L, Total Protein 5.4L, Albumin 3.1L Assessment and Plan Assessment Left Knee Primary OA s/p TKA Problem List Left Knee Primary OA s/p TKA Plan PT/OT DVT Prophylaxis Can go to acute rehab today versus extended care placement tomorrow; patient states she does not have enough help at home Final Diagonsis Left Knee Primary OA s/p TKA Level of the visit: Level 3 (global) JOSELO BARNETT MD Jan 12, 2023 12:39
[2023-01-12] MEDS ORDERED: diphenhydrAMINE 25 MG TABLET PO PRN (14:15)
[2023-01-12 15:10] VITALS: BP 126/58
--- NOTE | 2023-01-12 15:34 | Physical Therapy Daily Note ---
PT Daily Note-Current Subjective Patient lying supine in bed upon PT arrival, agreeable to treatment. Pain Section J - Health Conditions 1. Rarely or not at all 2. Occasionally 3. Frequently 4. Almost constantly 8. Unable to answer Pain Effect on Sleep: 4 Pain Interference with Therapy: 4 Pain Interference w/Day-to-Day: 4 Transfers SCALE: Activities may be completed with or without assistive devices. 5-Opsmyfnowl-vgldjml completes the activity by him/herself with no assistance from a helper. 5-Set-up or Clean-up Assistance-helper sets up or cleans up; patient completes activity. [place] assists only prior to or following the activity. 4-Supervision or Touching Assistance-helper provides verbal cues and/or touching/steadying and/or contact guard assistance as patient completes activity. Assistance may be provided throughout the activity or intermittently. 3-Partial/Moderate Assistance-helper does LESS THAN HALF the effort. [place] lifts, holds or supports trunk or limbs, but provides less than half the effort. 2-Substantial/Maximal Assistance-helper does MORE THAN HALF the effort. [place] lifts or holds trunk or limbs and provides more than half the effort. 0-Isutruxuy-ahvwet does ALL the effort. Patient does none of the effort to complete the activity. Or, the assistance of 2 or more helpers is required for the patient to complete the activity. If activity was not attempted, code reason: 7-Patient Refused. 9-Not Applicable-not attempted and the patient did not perform the activity before the current illness, exacerbation or injury. 10-Not Attempted due to Environmental Limitations-(lack of equipment, weather restraints, etc.). 88-Not Attempted due to Medical Conditions or Safety Concerns. Roll Left & Right (QC): 4 Sit to Lying (QC): 4 Lying to Sitting/Side of Bed(Q: 4 Sit to Stand (QC): 4 Chair/Yqq-cx-Grytn Xfer(QC): 4 Weight Bearing Right Lower Extremity: Right Full Weight Bearing Left Lower Extremity: Left Weight Bearing/Tolerated Gait Training Does the Patient Walk?: Yes Distance: 170' Walk 10 feet (QC): 4 Walk 50 ft with 2 Turns(QC): 4 Walk 150 ft (QC): 4 Gait Assistive Device: FWW Assessment Current Status: Good Progress Patient tolerated treatment well. Performs all observed transfers with SBA. Patient ambulates 170' with FWW. Patient in chair post treatment with all needs met, nursing notified, call light in hand. PT Director Of Corporate Responsibility Goals Director Of Corporate Responsibility Goals PT Director Of Corporate Responsibility Goals Time Frame: Feb 26, 2023 Roll Left & Right (QC): 5 Sit to Lying (QC): 5 Lying-Sitting on Side/Bed(QC): 5 Sit to Stand (QC): 5 Chair/Boq-xf-Hgjvk Xfer(QC): 5 Toilet Transfer (QC): 5 Car Transfer (QC): 5 Does the Patient Walk: Yes Walk 10 feet (QC): 4 Walk 50ft with 2 Turns (QC): 4 Walk 150 ft (QC): 4 1 Step (curb) (QC): 3 4 Steps (QC): 3 PT Plan Treatment/Plan Treatment Plan: Continue Plan of Care Treatment Plan: Bed Mobility, Education, Functional Activity Daija, Functional Strength, Group Therapy, Gait, Safety, Therapeutic Exercise, Transfers Treatment Duration: Mar 03, 2023 Frequency: 11 times per week Estimated Hrs Per Day: .25 hour per day Patient and/or Family Agrees t: Yes Safety Risks/Education Patient Education: Gait Training, Transfer Techniques Teaching Recipient: Patient Teaching Methods: Demonstration, Discussion Response to Teaching: Verbalize Understanding, Return Demonstration Time Time In: 1350 Time Out: 1400 DATE: Jan 12, 2023 Total Billed Treatment Time: 10 Total Billed Treatment Visit, JOVANNA RAY PT Jan 12, 2023 15:34
[2023-01-12] MEDS: LACTULOSE SYRUP 10GM/15ML 30ML UDC PO SCH (19:49)
[2023-01-12 20:16] VITALS: BP 125/75
[2023-01-12 23:52] VITALS: BP 122/71
[2023-01-13 05:42] LABS: BASOPHILS % (AUTO) 0 % (0-10); EOSINOPHILS # (AUTO) 0.4 10^3/uL (0.0-0.3); EOSINOPHILS % (AUTO) 5 % (0-10); HEMATOCRIT 27 % (35-52); HEMOGLOBIN 9.4 g/dL (11.5-16.0); LYMPHOCYTES # (AUTO) 2.4 10^3/uL (1.0-4.0); LYMPHOCYTES % (AUTO) 28 % (12-44); MEAN CORPUSCULAR HEMOGLOBIN 31 pg (25-34); MEAN CORPUSCULAR HGB CONC 34 g/dL (32-36); MEAN CORPUSCULAR VOLUME 91 fL (80-99); MEAN PLATELET VOLUME 8.8 fL (9.0-12.2); MONOCYTES # (AUTO) 0.9 10^3/uL (0.0-1.0); MONOCYTES % (AUTO) 10 % (0-12); NEUTROPHILS # (AUTO) 4.9 10^3/uL (1.8-7.8); NEUTROPHILS % (AUTO) 57 % (42-75); PLATELET COUNT 173 10^3/uL (130-400); WHITE BLOOD COUNT 8.5 10^3/uL (4.3-11.0)
[2023-01-13] MEDS: SUCRALFATE 1 GM TABLET PO SCH ×2 (05:46→11:20)
[2023-01-13 05:47] LABS: ALBUMIN 2.9 GM/DL (3.2-4.5)
[2023-01-13 05:48] LABS: POTASSIUM 3.4 MMOL/L (3.6-5.0)
[2023-01-13 05:49] LABS: CALCIUM 8.1 MG/DL (8.5-10.1)
[2023-01-13 05:50] LABS: TOTAL PROTEIN 5.4 GM/DL (6.4-8.2)
[2023-01-13 05:52] LABS: BILIRUBIN,TOTAL 0.7 MG/DL (0.1-1.0)
[2023-01-13 05:54] LABS: CREATININE SERUM 0.75 MG/DL (0.60-1.30)
--- NOTE | 2023-01-13 07:10 | Progress Note - Surgery ---
JUAN,HET 01/13/23 0710: Subjective Date Seen by a Provider: Jan 13, 2023 Time Seen by a Provider: 07:05 Subjective/Events-last exam Patient still has no issues swallowing and has had no episodes of regurgitation or feeling like she going to throw up. Has been able to tolerate her meals well without problems. Has no chest pain or fever. Left knee pain still present but otherwise patient feels well. Review of Systems General: No Chills, No Night Sweats HEENT: No Head Aches, No Visual Changes Pulmonary: No Dyspnea, No Cough Cardiovascular: No: Chest Pain, Palpitations Gastrointestinal: No: Nausea, Vomiting, Abdominal Pain Genitourinary: No Dysuria, No Frequency Musculoskeletal: No: neck pain, shoulder pain Neurological: No: Weakness, Numbness Objective Exam Vital Signs Date Time Temp Pulse Resp B/P (MAP) Pulse Ox O2 Delivery O2 Flow Rate FiO2 01/12/23 23:52 36.5 108 19 122/71 (88) 92 Room Air 01/12/23 20:16 37.2 99 19 125/75 (92) 92 Room Air 01/12/23 19:50 Room Air 01/12/23 15:10 37.7 91 19 126/58 (80) 97 Room Air 01/12/23 11:19 36.8 92 16 123/58 (79) 90 Room Air 01/12/23 08:00 91 Room Air 01/12/23 07:14 36.9 101 16 111/58 (75) 91 Room Air I & O 01/13/23 06:59 Intake Total 1180 ml Balance 1180 ml Capillary Refill : Less Than 3 Seconds General Appearance: No Apparent Distress, Obese HEENT: PERRL/EOMI, Normal ENT Inspection Neck: Full Range of Motion, Normal Inspection Respiratory: Chest Non Tender, No Accessory Muscle Use, No Respiratory Distress Cardiovascular: Regular Rate, Rhythm, No JVD Gastrointestinal: non tender, soft Extremity: No Non Tender; Other (left leg bandage from left total knee) Neurologic/Psychiatric: Alert, Oriented x3 Skin: Normal Color, Warm/Dry Lymphatic: No Adenopathy Results Lab Laboratory Tests 01/13/23 05:18: White Blood Count 8.5, Red Blood Count 3.00L, Hemoglobin 9.4L, Hematocrit 27L, Mean Corpuscular Volume 91, Mean Corpuscular Hemoglobin 31, Mean Corpuscular Hemoglobin Concent 34, Red Cell Distribution Width 12.5, Platelet Count 173, Mean Platelet Volume 8.8L, Immature Granulocyte % (Auto) 0, Neutrophils (%) (Auto) 57, Lymphocytes (%) (Auto) 28, Monocytes (%) (Auto) 10, Eosinophils (%) (Auto) 5, Basophils (%) (Auto) 0, Neutrophils # (Auto) 4.9, Lymphocytes # (Auto) 2.4, Monocytes # (Auto) 0.9, Eosinophils # (Auto) 0.4H, Basophils # (Auto) 0.0, Immature Granulocyte # (Auto) 0.0, Sodium Level 138, Potassium Level 3.4L, Chloride Level 105, Carbon Dioxide Level 24, Anion Gap 9, Blood Urea Nitrogen 9, Creatinine 0.75, Estimat Glomerular Filtration Rate 86, BUN/Creatinine Ratio 12, Glucose Level 109H, Calcium Level 8.1L, Corrected Calcium 9.0, Total Bilirubin 0.7, Aspartate Amino Transf (AST/SGOT) 28, Alanine Aminotransferase (ALT/SGPT) 32, Alkaline Phosphatase 66, Total Protein 5.4L, Albumin 2.9L Assessment/Plan Assessment/Plan Assessment/Plan Assessment: dysphagia diarrhea - resolving Left knee replacement with severe pain and slow recovery Plan: continue pantoprazole and sucralfate diet modification barium swallow or EGD- if regurg still persists NENO SALAZAR DO 01/13/23 1444: Subjective Subjective/Events-last exam Not had any further swallowing issues. Tolerating diet. No abdominal or chest pain. Feeling better. Denies n/v fever sweats chills shortness of breath or chest pain. Objective Exam General Appearance: No Apparent Distress, Obese HEENT: PERRL/EOMI, Normal ENT Inspection Neck: Full Range of Motion, Normal Inspection Respiratory: Chest Non Tender, No Accessory Muscle Use, No Respiratory Distress Cardiovascular: Regular Rate, Rhythm, No JVD Gastrointestinal: non tender, soft Extremity: Other (left leg bandage from left total knee) Neurologic/Psychiatric: Alert, Oriented x3 Skin: Normal Color, Warm/Dry Lymphatic: No Adenopathy Assessment/Plan Assessment/Plan Assessment/Plan dysphagia epigastric abdominal pain s/p left total knee replacement previous u/s sound normal if continues to have pain would consider HIDA scan as outpatient On Protonix and carafate. Symptoms improved, would consider Esophogram and possible EGD to further evaluate if worsening. Is planning colonoscopy when knee is better. this could be done on outpatient basis as well. encouraged PT. patient avoiding acidic foods. will sign off, call if needed. Supervisory-Addendum Brief Verification & Attestation Participated in pt care: history, MDM, physical Personally performed: exam, history, MDM, supervision of care Care discussed with: Medical Student Procedures: n/a Results interpretation: Verified all documentation Verification and Attestation of Medical Student E/M Service A medical student performed and documented this service in my presence. I reviewed and verified all information documented by the medical student and made modifications to such information, when appropriate. I personally performed the physical exam and medical decision making. Neno Salazar, Jan 13, 2023,14:44 BLANCO Jan 13, 2023 07:10 NENO SALAZAR DO Jan 13, 2023 14:44
[2023-01-13 07:39] VITALS: BP 133/72
[2023-01-13] MEDS: DOCUSATE SODIUM 100 MG CAPSULE PO SCH (08:21)
[2023-01-13] MEDS: LOSARTAN 25 MG TABLET PO SCH (08:21)
[2023-01-13] MEDS: ASPIRIN enteric coated 81MG TABLET PO SCH (08:21)
[2023-01-13] MEDS: PANTOPRAZOLE 40 MG TABLET PO SCH (08:21)
[2023-01-13] MEDS: CELECOXIB 100 MG CAPSULE PO SCH ×2 (08:22→08:54)
[2023-01-13] MEDS: diphenhydrAMINE 25 MG TABLET PO PRN (08:23)
[2023-01-13] MEDS: LACTULOSE SYRUP 10GM/15ML 30ML UDC PO SCH (08:24)
[2023-01-13] MEDS: oxyCODONE IMMEDIATE RELEASE 5 MG TABLET PO PRN ×2 (08:24→12:25)
--- NOTE | 2023-01-13 08:44 | Physical Therapy Daily Note ---
PT Daily Note-Current Subjective Patient agrees to PT. Daughter present. Patient had declined pain medication this a.m. per RN stating, "I want to wait on PT to get here." Patient instructed by patient and RN to take pain medication as ordered and to not wait. Patient voices understanding. Pain Numeric Pain Scale: 5-Moderate Pain Location: Left Location Body Site: Knee Pain Description: Acute Section J - Health Conditions 1. Rarely or not at all 2. Occasionally 3. Frequently 4. Almost constantly 8. Unable to answer Pain Effect on Sleep: 1 Pain Interference with Therapy: 1 Pain Interference w/Day-to-Day: 1 Transfers SCALE: Activities may be completed with or without assistive devices. 8-Lstjtsfbwv-rgyoyqz completes the activity by him/herself with no assistance from a helper. 5-Set-up or Clean-up Assistance-helper sets up or cleans up; patient completes activity. [place] assists only prior to or following the activity. 4-Supervision or Touching Assistance-helper provides verbal cues and/or touching/steadying and/or contact guard assistance as patient completes activity. Assistance may be provided throughout the activity or intermittently. 3-Partial/Moderate Assistance-helper does LESS THAN HALF the effort. [place] lifts, holds or supports trunk or limbs, but provides less than half the effort. 2-Substantial/Maximal Assistance-helper does MORE THAN HALF the effort. [place] lifts or holds trunk or limbs and provides more than half the effort. 0-Wzjczdvoe-grclzt does ALL the effort. Patient does none of the effort to complete the activity. Or, the assistance of 2 or more helpers is required for the patient to complete the activity. If activity was not attempted, code reason: 7-Patient Refused. 9-Not Applicable-not attempted and the patient did not perform the activity before the current illness, exacerbation or injury. 10-Not Attempted due to Environmental Limitations-(lack of equipment, weather restraints, etc.). 88-Not Attempted due to Medical Conditions or Safety Concerns. Lying to Sitting/Side of Bed(Q: 4 Sit to Stand (QC): 4 Chair/Raj-bc-Vrqab Xfer(QC): 4 Weight Bearing Right Lower Extremity: Right Full Weight Bearing Left Lower Extremity: Left Weight Bearing/Tolerated Gait Training Distance: 200' x 2 Walk 10 feet (QC): 4 Walk 50 ft with 2 Turns(QC): 4 Walk 150 ft (QC): 4 Gait Assistive Device: FWW steady reciprocal pattern/slightly antalgic Stair Training Stair Training: Handrails/: 2 handrails #of Steps: 4 1 Step (curb) (QC): 4 4 Steps (QC): 4 Stairs: Pattern: Step to Exercises Supine Ex: Ankle pumps, Quad Set, Heel Slides, Straight leg raise (AAROM due to not wanting to perform independently due to pain) Seated Therapy Exercises: Long arc quads Seated Reps: 15 Assessment Patient educated on the musculature she utilized without difficulty with stair training are the same to perform LAQ and SLR. Patient educated on "working through the pain" to improve functional mobility. Patient continues to appear to self limit due to pain. RN in to issue pain medication. PT Field Service Technician Goals Field Service Technician Goals PT Field Service Technician Goals Time Frame: Feb 26, 2023 Roll Left & Right (QC): 5 Sit to Lying (QC): 5 Lying-Sitting on Side/Bed(QC): 5 Sit to Stand (QC): 5 Chair/Ntd-hu-Joqto Xfer(QC): 5 Toilet Transfer (QC): 5 Car Transfer (QC): 5 Does the Patient Walk: Yes Walk 10 feet (QC): 4 Walk 50ft with 2 Turns (QC): 4 Walk 150 ft (QC): 4 1 Step (curb) (QC): 3 4 Steps (QC): 3 PT Plan Treatment/Plan Treatment Plan: Continue Plan of Care Treatment Plan: Bed Mobility, Education, Functional Activity Daija, Functional Strength, Group Therapy, Gait, Safety, Therapeutic Exercise, Transfers Treatment Duration: Mar 03, 2023 Frequency: 11 times per week Estimated Hrs Per Day: .25 hour per day Patient and/or Family Agrees t: Yes Time Time In: 807 Time Out: 830 DATE: Jan 13, 2023 Total Billed Treatment Time: 23 Total Billed Treatment 1 visit EX 13 min FA 10 min BIA CHILDRESS PT Jan 13, 2023 08:44
[2023-01-13] MEDS ORDERED: SENNOSIDES 8.6 MG TABLET PO SCH (09:00)
--- NOTE | 2023-01-13 09:13 | Progress Note ---
JOSE PALOMARES 01/13/23 0913: Subjective Date Seen by a Provider: Jan 13, 2023 Time Seen by a Provider: 09:06 Subjective/Events-last exam 67 year old woman who presents day 3 total left knee replacement with severe pain. Patient is ambulating with a little more improvement than yesterday. She did not take her pain medication last night in the middle of the night, so the pain is alot worse with PT this morning. Patient still having difficulty ambulating too much. When walking- she is having lots of difficulty moving her leg. Pain is controlled with medication when taken as scheduled. Patient says she is no longer having regurgitation of food. She is still not having any bowel movements- has not had any bowel movements since Tuesday, which is unusual for her. Her incision has a little drainage. Patient is requesting update on rehab- anxious about having to go home in this condition. Objective Exam Last Set of Vital Signs Vital Signs Date Time Temp Pulse Resp B/P (MAP) Pulse Ox O2 Delivery O2 Flow Rate FiO2 01/13/23 07:39 37.0 82 18 133/72 (92) 93 Room Air Capillary Refill : Less Than 3 Seconds I&O Intake and Output 01/13/23 00:00 Intake Total 1280 ml Balance 1280 ml Intake Oral 1280 ml # Voids 8 General: Alert, Oriented X3, Cooperative HEENT: Atraumatic, PERRLA Neck: Supple, No JVD Lungs: Clear to Auscultation Heart: Regular Rate Abdomen: Normal Bowel Sounds, Soft Extremities: No Clubbing, No Cyanosis Skin: No Rashes, No Breakdown Neuro: Normal Speech Results Lab Laboratory Tests 01/13/23 05:18: White Blood Count 8.5, Red Blood Count 3.00L, Hemoglobin 9.4L, Hematocrit 27L, Mean Corpuscular Volume 91, Mean Corpuscular Hemoglobin 31, Mean Corpuscular Hemoglobin Concent 34, Red Cell Distribution Width 12.5, Platelet Count 173, Mean Platelet Volume 8.8L, Immature Granulocyte % (Auto) 0, Neutrophils (%) (Auto) 57, Lymphocytes (%) (Auto) 28, Monocytes (%) (Auto) 10, Eosinophils (%) (Auto) 5, Basophils (%) (Auto) 0, Neutrophils # (Auto) 4.9, Lymphocytes # (Auto) 2.4, Monocytes # (Auto) 0.9, Eosinophils # (Auto) 0.4H, Basophils # (Auto) 0.0, Immature Granulocyte # (Auto) 0.0, Sodium Level 138, Potassium Level 3.4L, Chloride Level 105, Carbon Dioxide Level 24, Anion Gap 9, Blood Urea Nitrogen 9, Creatinine 0.75, Estimat Glomerular Filtration Rate 86, BUN/Creatinine Ratio 12, Glucose Level 109H, Calcium Level 8.1L, Corrected Calcium 9.0, Total Bilirubin 0.7, Aspartate Amino Transf (AST/SGOT) 28, Alanine Aminotransferase (ALT/SGPT) 32, Alkaline Phosphatase 66, Total Protein 5.4L, Albumin 2.9L Assessment/Plan Assessment/Plan Assess & Plan/Chief Complaint Assessment: Left total knee replacement-out of proportion pain Limited Mobility Hypertension High BMI Vit D Deficiency JESSY with CPAP Plan: Valium for Anxiety Continue aggressive pain control Aggressive rehab for patients limited mobility Medication management HELEN CARTER DO 01/14/23 0437: Subjective Subjective/Events-last exam Patient still having a lot of pain Insurance denied inpatient rehab No falls Slow recovery Objective Exam General: Alert, Oriented X3, Cooperative, No Acute Distress Lungs: Clear to Auscultation, Normal Air Movement Psych/Mental Status: Mental Status NL, Mood NL Assessment/Plan Assessment/Plan Assess & Plan/Chief Complaint Supportive care Monitor closely Supervisory-Addendum Brief Verification & Attestation Participated in pt care: history, MDM, physical Personally performed: exam, history, MDM, supervision of care Care discussed with: Medical Student Procedures: n/a Results interpretation: Verified all documentation Verification and Attestation of Medical Student E/M Service A medical student performed and documented this service in my presence. I review ed and verified all information documented by the medical student and made modifications to such information, when appropriate. I personally performed the physical exam and medical decision making. Helen Carter Jan 14, 2023,04:36 JOSE PALOMARES Jan 13, 2023 09:13 HELEN CARTER DO Jan 14, 2023 04:37
[2023-01-13] MEDS ORDERED: ASPI-1238 PO ×2 (11:18)
[2023-01-13] MEDS ORDERED: OXYC10TA7 PO ×2 (11:18)
--- NOTE | 2023-01-13 11:18 | Occupational Ther Daily Note ---
OT Current Status-Daily Note Subjective Sitting EOB, reports staff to give shower and will return to cover wound Pain Numeric Pain Scale: 4 Mental Status/Objective Patient Orientation: Person, Place, Time, Situation ADL-Treatment Patient argumentive w/ OT about wearing foot protection and fall risks in hospital. OT hands patient socks, begins to don socks, OT informs patient is able and performing ADLS promotes ROM ,WB and healing for patient, Patient reports she is independent at home. OT provided Supervision and SBA for transfer w/ FWW to bathroom. Patient transfer to toilet, spouse invention again to assist patient. OT reports for patient to use call cord when ready to transfer off toilet. Spouse continues to assist patient Therapy Code Descriptions/Definitions Functional [place] Measure: 0=Not Assessed/NA 4=Minimal Assistance 1=Total Assistance 5=Supervision or Setup 2=Maximal Assistance 6=Modified [place] 3=Moderate Assistance 7=Complete IndependenceSCALE: Activities may be completed with or without assistive devices. 9-Ocftqtgloo-ilbmorg completes the activity by him/herself with no assistance from a helper. 5-Set-up or Clean-up Assistance-helper sets up or cleans up; patient completes activity. [place] assists only prior to or following the activity. 4-Supervision or Touching Assistance-helper provides verbal cues and/or touching/steadying and/or contact guard assistance as patient completes activity. Assistance may be provided throughout the activity or intermittently. 3-Partial/Moderate Assistance-helper does LESS THAN HALF the effort. [place] lifts, holds or supports trunk or limbs, but provides less than half the effort. 2-Substantial/Maximal Assistance-helper does MORE THAN HALF the effort. [place] lifts or holds trunk or limbs and provides more than half the effort. 9-Muvgqzxiu-xlciia does ALL the effort. Patient does none of the effort to complete the activity. Or, the assistance of 2 or more helpers is required for the patient to complete the activity. If activity was not attempted, code reason: 7-Patient Refused. 9-Not Applicable-not attempted and the patient did not perform the activity before the current illness, exacerbation or injury. 10-Not Attempted due to Environmental Limitations-(lack of equipment, weather restraints, etc.). 88-Not Attempted due to Medical Conditions or Safety Concerns. Eating (QC): 6 Oral Hygiene (QC): 5 Upper Body Dressing (QC): 5 Lower Body Dressing (QC): 4 On/Off Footwear: 4 Toileting Hygiene (QC): 4 Toilet Transfer (QC): 4 Education OT Patient Education: Correct positioning, Exercise program, Instructions to caregiver, Modified ADL techniques, Progress toward Goal/Update tx plan, Purpose of tx/functional activities, Reviewed precautions, Rehab process, Safety issues, Transfer techniques, Use of adapted equipment Teaching Recipient: Patient, Family Teaching Methods: Demonstration, Discussion OT Guitar Technician Goals Guitar Technician Goals Eating (QC): 6 Oral Hygiene (QC): 6 Toileting Hygiene (QC): 6 Shower/Bathe Self (QC): 4 Upper Body Dressing (QC): 6 Lower Body Dressing (QC): 6 On/Off Footwear (QC): 6 1=Demonstrate adherence to instructed precautions during ADL tasks. 2=Patient will verbalize/demonstrate understanding of assistive devices/modifications for ADL. 3=Patient will improve strength/tolerance for activity to enable patient to perform ADL's. OT Education/Plan Problem List/Assessment Assessment: Impaired Self-Care Skills Discharge Recommendations Plan/Recommendations: Discontinue OT Treatment Plan/Plan of Care Patient would benefit from OT for education, treatment and training to promote independence in ADL's, mobility, safety and/or upper extremity function for ADL's. Plan of Care: ADL Retraining, Functional Mobility, Group Exercise/Act as Ind, UE Funct Exercise/Act Treatment Duration: Jan 11, 2023 Frequency: 3 times per week (3-5 times per week) Estimated Hrs Per Day: .25 hour per day Rehab Potential: Fair Time Start Time: 10:15 Stop Time: 10:30 DATE: Jan 13, 2023 Total Time Billed (hr/min): 15 Billed Treatment Time ADL 15 min GWEN MATA OT Jan 13, 2023 11:18
--- NOTE | 2023-01-13 11:36 | D/C HH Face to Face Order ---
D/C Face to Face Orders Instructions for Patient Via [facility], Patient Instructions/FollowUp: WBAT on left leg; use walker for assist. Dry dressing daily to incision site; do not get incision wet. Home health therapy for motion/strengthening/gait training. F/U with Dr. Kaden Rogers ~2 weeks after surgery. Physician to follow Patient: Kaden Rogers Discharge Diet for Home: No Restrictions Patient Data-Allergies,Ht & Wt Patient Allergies: Coded Allergies: codeine (Verified Allergy, Mild, Hives, 01/10/23) Penicillins (Verified Allergy, Unknown, 07/30/21) clarithromycin (Verified Allergy, Unknown, 07/30/21) iodine (Verified Allergy, Unknown, rash locally from topical iodine, 07/30/21) Home Health Need/Face to Face Date of Face to Face: Jan 13, 2023 Clinical Findings: Muscle weakness, Pain with ambulation I have seen Pt [id number]: Yes Discharged To: Home Diagnosis/Conditions: Left Knee OA s/p TKA Patient is Homebound due to: Muscle weakness, Pain w/ambulation Homebound Status Due to the above stated illness, injury or surgical procedure (medical condition or diagnosis) and associated clinical findings, the patient is homebound because of his/her inability to leave home except with aid of a supportive device and/or person AND leaving the home requires a considerable and taxing effort or is medically contraindicated. Pt req the following assistanc: Walker Home Health Nursing Orders Home Health Services Order: Physical Therapy-Evaluate & Treat Home Health Infusion Therapy Line Start Date: Jan 10, 2023 Therapy Orders Therapy Specific Orders: Gait training, Increase strength/endurance, Restore ROM Certify Stmt I certify that this patient is under my care and that I, a nurse practitioner or a physician; a communications assistant working with me, had a face to face encounter that - meets the physician face to face encounter requirements with this patient as dated. KADEN ROGERS MD Jan 13, 2023 11:36
--- NOTE | 2023-01-13 11:39 | Discharge Summary ---
Discharge Summary Hospital Course Hospital Course Date of Admission: 01/10/23 Admission Diagnosis : Left Knee Primary Osteoarthritis Family Physician/Provider: Nahomy Cloud MD Date of Discharge: 01/13/23 Discharge Diagnosis: [Left Knee Primary Osteoarthritis s/p TKA ] Hospital Course: [On y, patient underwent left total knee arthroplasty. Tolerated the procedure well and was transferred to the regular floor. On the day of surgery, began mechanical DVT prophylaxis and started to work with therapy. On POD #1, had significant difficulty with pain control and did not make progress with therapy and began chemical DVT prophylaxis. On POD #2, rehab evaluation was ongoing, made progress with therapy, and pain control was improved. On POD #3, continued to make progress with therapy, rehab was denied, and home health therapy arrangements were made. Patient was ready for discharge home. ] Labs and Pending Lab Test: Laboratory Tests 01/13/23 05:18: White Blood Count 8.5, Red Blood Count 3.00L, Hemoglobin 9.4L, Hematocrit 27L, Mean Corpuscular Volume 91, Mean Corpuscular Hemoglobin 31, Mean Corpuscular Hemoglobin Concent 34, Red Cell Distribution Width 12.5, Platelet Count 173, Mean Platelet Volume 8.8L, Immature Granulocyte % (Auto) 0, Neutrophils (%) (Auto) 57, Lymphocytes (%) (Auto) 28, Monocytes (%) (Auto) 10, Eosinophils (%) (Auto) 5, Basophils (%) (Auto) 0, Neutrophils # (Auto) 4.9, Lymphocytes # (Auto) 2.4, Monocytes # (Auto) 0.9, Eosinophils # (Auto) 0.4H, Basophils # (Auto) 0.0, Immature Granulocyte # (Auto) 0.0, Sodium Level 138, Potassium Level 3.4L, Chloride Level 105, Carbon Dioxide Level 24, Anion Gap 9, Blood Urea Nitrogen 9, Creatinine 0.75, Estimat Glomerular Filtration Rate 86, BUN/Creatinine Ratio 12, Glucose Level 109H, Calcium Level 8.1L, Corrected Calcium 9.0, Total Bilirubin 0.7, Aspartate Amino Transf (AST/SGOT) 28, Alanine Aminotransferase (ALT/SGPT) 32, Alkaline Phosphatase 66, Total Protein 5.4L, Albumin 2.9L Home Meds Active Oxycodone HCl 10 Mg Tablet 10 Mg PO Q4H 7 Days Aspirin EC (Aspirin) 81 Mg Tablet.dr 81 Mg PO BID WITH MEALS 14 Days Nitroglycerin 0.4 Mg Tab.subl 0.4 Mg SL UD PRN 1 tab every 5 min prn chest pain, mx of 3 pills in 15 min Reported Tylenol Arthritis (Acetaminophen) 650 Mg Tablet.er 1,300 Mg PO Q8H PRN Vitamin D2 (Ergocalciferol (Vitamin D2)) 1,250 Mcg (53937 Unit) Capsule 1,250 Mcg PO SUN Losartan Potassium 25 Mg Tablet 25 Mg PO DAILY Meloxicam 15 Mg Tablet 15 Mg PO DAILY PRN Aimee Allergy (Fexofenadine HCl) 180 Mg Tablet 180 Mg PO DAILY PRN Vitamin D3 (Cholecalciferol (Vitamin D3)) 125 Mcg Capsule 125 Mcg PO DAILY Assessment/Pt Instructions WBAT on left leg; use walker for assist. Dry dressing daily to incision site; do not get incision wet. Home health therapy for motion/strengthening/gait training. F/U with Dr. Kaden Rogers ~2 weeks after surgery. Discharge Instructions Discharge Diet: No Restrictions Discharge Physical Examination Vital Signs Vital Signs Date Time Temp Pulse Resp B/P (MAP) Pulse Ox O2 Delivery O2 Flow Rate FiO2 01/13/23 07:39 37.0 82 18 133/72 (92) 93 Room Air Extremity: Other (L Knee: Incision with scant serosang drainage, +DF of ankle, no s/s of DVT) Allergies: Coded Allergies: codeine (Verified Allergy, Mild, Hives, 01/10/23) Penicillins (Verified Allergy, Unknown, 07/30/21) clarithromycin (Verified Allergy, Unknown, 07/30/21) iodine (Verified Allergy, Unknown, rash locally from topical iodine, 07/30/21) Discharge Summary Date of Admission Date of Discharge KADEN ROGERS MD Jan 13, 2023 11:39
[2023-01-13] MEDS: diazePAM 5 MG TABLET PO PRN (12:25)
[2023-01-13 14:00] VITALS: BP 133/72
--- NOTE | 2023-01-13 14:00 | Physical Therapy Daily Note ---
PT Daily Note-Current Subjective Patient agrees to therapy. Daughter present and reports patient will dismiss to her home on this date. Pain Section J - Health Conditions 1. Rarely or not at all 2. Occasionally 3. Frequently 4. Almost constantly 8. Unable to answer Pain Effect on Sleep: 1 Pain Interference with Therapy: 1 Pain Interference w/Day-to-Day: 1 Transfers SCALE: Activities may be completed with or without assistive devices. 3-Dqnefrpprj-isyphfb completes the activity by him/herself with no assistance from a helper. 5-Set-up or Clean-up Assistance-helper sets up or cleans up; patient completes activity. Cook assists only prior to or following the activity. 4-Supervision or Touching Assistance-helper provides verbal cues and/or touching/steadying and/or contact guard assistance as patient completes activity. Assistance may be provided throughout the activity or intermittently. 3-Partial/Moderate Assistance-helper does LESS THAN HALF the effort. Cook lifts, holds or supports trunk or limbs, but provides less than half the effort. 2-Substantial/Maximal Assistance-helper does MORE THAN HALF the effort. Cook lifts or holds trunk or limbs and provides more than half the effort. 5-Mwvlrsxet-ulaqhk does ALL the effort. Patient does none of the effort to complete the activity. Or, the assistance of 2 or more helpers is required for the patient to complete the activity. If activity was not attempted, code reason: 7-Patient Refused. 9-Not Applicable-not attempted and the patient did not perform the activity before the current illness, exacerbation or injury. 10-Not Attempted due to Environmental Limitations-(lack of equipment, weather restraints, etc.). 88-Not Attempted due to Medical Conditions or Safety Concerns. Sit to Lying (QC): 4 (hooked right foot under left LE to assist with this activity) Lying to Sitting/Side of Bed(Q: 4 Sit to Stand (QC): 4 Chair/Uzm-yj-Cnrrh Xfer(QC): 4 SBA Weight Bearing Right Lower Extremity: Right Full Weight Bearing Left Lower Extremity: Left Weight Bearing/Tolerated Gait Training Distance: 275' Walk 10 feet (QC): 5 Walk 50 ft with 2 Turns(QC): 5 Walk 150 ft (QC): 5 Gait Assistive Device: FWW steady reciprocal pattern Exercises Seated Therapy Exercises: Long arc quads Seated Reps: 12 (AAROM left LE) Assessment Patient voices frustration with inability to remain in the hospital due to pain. Patient's mobility is SBA without difficulty. Patient voices she shouldn't have any pain after the surgery. PT educated patient on the pain from the invasive surgery she elected to have and that is it temporary and will continue to improve every day but she has to increase her activity to reap benefit from this procedure. Patient voices understanding. Patient to dismiss to home with family and home health on this date. PT Statement Clerks Supervisor Goals Statement Clerks Supervisor Goals PT Skilled Nursing Goals Time Frame: Feb 26, 2023 Roll Left & Right (QC): 5 Sit to Lying (QC): 5 Lying-Sitting on Side/Bed(QC): 5 Sit to Stand (QC): 5 Chair/Pvo-vw-Lvizp Xfer(QC): 5 Toilet Transfer (QC): 5 Car Transfer (QC): 5 Does the Patient Walk: Yes Walk 10 feet (QC): 4 Walk 50ft with 2 Turns (QC): 4 Walk 150 ft (QC): 4 1 Step (curb) (QC): 3 4 Steps (QC): 3 PT Plan Treatment/Plan Treatment Plan: Discontinue PT Treatment Plan: Bed Mobility, Education, Functional Activity Daija, Functional Strength, Group Therapy, Gait, Safety, Therapeutic Exercise, Transfers Treatment Duration: Mar 03, 2023 Frequency: 11 times per week Estimated Hrs Per Day: .25 hour per day Patient and/or Family Agrees t: Yes Time Time In: 1245 Time Out: 1300 DATE: Jan 13, 2023 Total Billed Treatment Time: 15 Total Billed Treatment 1 visit FA 15 min BIA CHILDRESS PT Jan 13, 2023 14:00
== END 2023-01-13 14:29 | disposition home health service (06) ==
LOC: SDC 08:20 → 4TH 13:20 → SDC 01-13 14:29
PROVIDERS: ATTEND Orthopaedic Surgery
DX: M17.0 Bilateral primary osteoarthritis of knee (principal); I10 Essential (primary) hypertension; E55.9 Vitamin D deficiency, unspecified; G47.33 Obstructive sleep apnea (adult) (pediatric); F41.9 Anxiety disorder, unspecified; R13.10 Dysphagia, unspecified; R19.7 Diarrhea, unspecified; R10.13 Epigastric pain; D64.89 Other specified anemias
CPT/HCPCS: 27447; 73560; 80053 ×3; 85014; 85018; 85025 ×3; 93005; 94664; 97110 ×2; 97116 ×2; 97162; 97166; 97530; 97535; C1713 ×4; C1776 ×3; 36415

== ENCOUNTER 2023-01-14 16:15 | Emergency (ER) | payer MEDICARE ==
[~2023-01-14] VITALS: Ht 157 cm; Wt 90.7 kg
[~2023-01-14 16:15] MED LIST changes: +ACET-2650 PO; +ASPI-1238 PO; +OXYC10TA7 PO
[2023-01-14 16:31] VITALS: BP 148/63
--- NOTE | 2023-01-14 16:56 | ED Lower Extremity ---
General Chief Complaint: Lower Extremity Stated Complaint: POST-OP PAIN AND FALL - LT LEG Nursing Triage Note: pt presents to ed with complaints of l knee pain and swelling after having a tkr by dr barnett on tuesday. pt was discharged yesterday around 1400 and fell at home at 1630. pt reports she fell backwards and was caught by her daughter. pt believes her l knee was twisted in the process. Source: patient Exam Limitations: no limitations History of Present Illness Date Seen by Provider: Jan 14, 2023 Time Seen by Provider: 16:49 Initial Comments 67-year-old female presents to the ER with concern for her recent left knee replacement. She had a total knee replacement of her left knee on 04/12/2022, by Dr. Barnett, orthopedics. She was discharged from the hospital yesterday. She states that she had a fall yesterday and twisted her knee. She reports worsening swelling of her knee and leg, warm to the touch, increase in redness around the incision, and numbness on the lateral side of her knee. She also reports intermittent cold chills and feeling warm. She also had some bleeding from the site, states that this occurred yesterday after physical therapy. Allergies and Home Medications Allergies Coded Allergies: codeine (Verified Allergy, Mild, Hives, 01/10/23) Penicillins (Verified Allergy, Unknown, 07/30/21) clarithromycin (Verified Allergy, Unknown, 07/30/21) iodine (Verified Allergy, Unknown, rash locally from topical iodine, 07/30/21) Patient Home Medication List Home Medication List Reviewed: Yes Acetaminophen (Tylenol Arthritis) 650 Mg Tablet.er, 1,300 MG PO Q8H PRN for PAIN-MILD (1-4), (Reported) Entered as Reported by: DUKE HERNANDES on 01/10/23 1427 Aspirin (Aspirin EC) 81 Mg Tablet.dr, 81 MG PO BID WITH MEALS Prescribed by: JOSELO BARNETT MD on 01/13/23 1118 Cholecalciferol (Vitamin D3) (Vitamin D3) 125 Mcg Capsule, 125 MCG PO DAILY, (Reported) Entered as Reported by: DUKE HERNANDES on 06/04/21 1213 Ergocalciferol (Vitamin D2) (Vitamin D2) 1,250 Mcg (52465 Unit) Capsule, 1,250 MCG PO SUN, (Reported) Entered as Reported by: DUKE HERNANDES on 01/10/23 1427 Fexofenadine HCl (Aimee Allergy) 180 Mg Tablet, 180 MG PO DAILY PRN for ALLERGY SYMPTOMS, (Reported) Entered as Reported by: Sunshine Oliver on 01/03/23 1055 Losartan Potassium (Losartan Potassium) 25 Mg Tablet, 25 MG PO DAILY, (Reported) Entered as Reported by: DUKE HERNANDES on 01/10/23 1427 Meloxicam (Meloxicam) 15 Mg Tablet, 15 MG PO DAILY PRN for PAIN BREAKTROUGH, (Reported) Entered as Reported by: Sunshine Oliver on 01/03/23 1055 Nitroglycerin (Nitroglycerin) 0.4 Mg Tab.subl, 0.4 MG SL UD PRN for CHEST PAIN (ANGINA) Prescribed by: PAVEL DENNIS on 06/05/21 1247 Oxycodone HCl (Oxycodone HCl) 10 Mg Tablet, 10 MG PO Q4H Prescribed by: JOSELO BARNETT MD on 01/13/23 1118 Discontinued Medications Losartan Potassium (Losartan Potassium) 25 Mg Tablet, 25 MG PO DAILY Discontinued Reason: Duplicate Order Prescribed by: PAVEL DENNIS on 06/05/21 1247 Review of Systems Constitutional: see HPI Past Aciabjn-Rhhjsk-Zhhlfv Hx Patient Social History Tobacco Use?: No Substance use?: No Alcohol Use?: No Pt feels they are or have been: No Immunizations Up To Date First/Initial COVID19 Vaccinat: may 2020 Second COVID19 Vaccination Edil: 2020 Third COVID19 Vaccination Date: 2020 Seasonal Allergies Seasonal Allergies: No Past Medical History Surgery/Hospitalization HX: HTN, SLEEP APNEA sx: tonsils, hyst, l total knee Surgeries: Yes (HYSTERECTOMY (PARTIAL), T&A, FOOT SURGERY) Hysterectomy, Orthopedic, Tonsillectomy Respiratory: No Currently Using CPAP: No Currently Using BIPAP: No Cardiac: Yes Hypertension, Palpitations Neurological: No [employer]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 Sexually Transmitted Disease: No HIV/AIDS: No Genitourinary: No Gastrointestinal: No Chronic Diarrhea Musculoskeletal: Yes (CHRONIC BACK PAIN) Arthritis Endocrine: No HEENT: Yes (GLASSES) Loss of Vision: Denies Hearing Impairment: Hard of Hearing, Hearing Aide Right, Hearing Aide Left Cancer: No Did You Recieve Any Treatments: No Psychosocial: No Integumentary: No Blood Disorders: No Adverse Reaction/Blood Tranf: No (N/A) Family Medical History No Pertinent Family Hx Physical Exam Vital Signs Vital Signs - First Documented 01/14/23 16:31 Temp 36.1 Pulse 90 Resp 16 B/P (MAP) 148/63 (91) Pulse Ox 94 Capillary Refill : Less Than 3 Seconds Height, Weight, BMI Height: '" Weight: lbs. oz. kg; 36.00 BMI Method: General Appearance: WD/WN, no apparent distress Neck: supple, normal inspection Cardiovascular: regular rate, rhythm Respiratory: lungs clear, normal breath sounds, no respiratory distress, no accessory muscle use Knees: left knee normal range of motion, left knee ecchymosis, left knee soft tissue tenderness, left knee swelling, left knee other (Leg is slightly warmer than right leg, no significant erythema) Neurologic/Psychiatric: alert, normal mood/affect Skin: normal color, warm/dry Progress/Results/Core Measures Results/Orders Lab Results Laboratory Tests Test 01/14/23 17:30 Range/Units White Blood Count 8.1 4.3-11.0 10^3/uL Red Blood Count 3.12 L 3.80-5.11 10^6/uL Hemoglobin 10.0 L 11.5-16.0 g/dL Hematocrit 29 L 35-52 % Mean Corpuscular Volume 92 80-99 fL Mean Corpuscular Hemoglobin 32 25-34 pg Mean Corpuscular Hemoglobin Concent 35 32-36 g/dL Red Cell Distribution Width 12.6 10.0-14.5 % Platelet Count 236 130-400 10^3/uL Mean Platelet Volume 8.5 L 9.0-12.2 fL Immature Granulocyte % (Auto) 0 % Neutrophils (%) (Auto) 57 42-75 % Lymphocytes (%) (Auto) 27 12-44 % Monocytes (%) (Auto) 9 0-12 % Eosinophils (%) (Auto) 7 0-10 % Basophils (%) (Auto) 0 0-10 % Neutrophils # (Auto) 4.6 1.8-7.8 10^3/uL Lymphocytes # (Auto) 2.2 1.0-4.0 10^3/uL Monocytes # (Auto) 0.7 0.0-1.0 10^3/uL Eosinophils # (Auto) 0.5 H 0.0-0.3 10^3/uL Basophils # (Auto) 0.0 0.0-0.1 10^3/uL Immature Granulocyte # (Auto) 0.0 0.0-0.1 10^3/uL Erythrocyte Sedimentation Rate 76 H 0-30 MM/HR C-Reactive Protein High Sensitivity 17.03 H 0.00-0.50 MG/DL My Orders Orders - FLAQUITO HAYNES APRN Knee, Left, 3 Views (01/14/23 16:55) Cbc And Automated Diff (01/14/23 17:07) Hs C Reactive Protein (01/14/23 17:07) Erythrocyte Sedimentation Rate (01/14/23 17:07) Vital Signs/I&O 01/14/23 16:31 Temp 36.1 Pulse 90 Resp 16 B/P (MAP) 148/63 (91) Pulse Ox 94 Blood Pressure Mean: 91 Progress Progress Note : Progress Note Patient seen and evaluated, resting comfortably in recliner, no acute distress. Will order x-ray of knee, CBC, ESR, and CRP. I sent a picture of the patient's knee to Dr. Barnett, orthopedics. He said that her knee looks good. He is not concerned for infection. CBC shows normal white count. ESR elevated 76, CRP elevated 17. Results discussed with Dr. Barnett. He is not concerned for an infection. He would like patient to follow-up as scheduled 2 weeks postop. Elevated ESR and CRP are likely related to recent surgery. X-ray shows normal alignment of knee arthroplasty. Results discussed with patient. Discharge instructions and return precautions provided. Diagnostic Imaging Diagonstic Imaging: Xray Plain Films/CT/US/NM/MRI: knee Comments [facility]. [place], [place] NAME: RASHAWNFABIOLA R [facility] REC#: [id number] PT STATUS: REG ER : 1955 PHYSICIAN: FLAQUITO HAYNES APRN ADMIT DATE: 01/14/23/ER Draft Date of Exam:01/14/23 KNEE, LEFT, 3 VIEWS INDICATION: Left knee pain. FINDINGS: Three views of the left knee show postop changes from recent total knee arthroplasty. There is no evidence of loosening or periprosthetic fracture. IMPRESSION: Good alignment of the left knee following joint arthroplasty. Dictated on workstation # [id number] Dict: 01/14/231725 Trans: 01/14/231728 [id number] Interpreted by: MARITZA MALIN MD Electronically signed by: Departure Impression Primary Impression: Postoperative edema Disposition: HOME, SELF-CARE Condition: Stable Departure-Patient Inst. Decision time for Depature: 18:49 Referrals: PAVEL DENNIS MD (PCP/Family) Primary Care Physician Patient Instructions: Total Knee Replacement Add. Discharge Instructions: Follow-up with Dr. Barnett as scheduled. Return for any new, concerning, or worsening symptoms. All discharge instructions reviewed with patient and/or family. Voiced understanding. FLAQUITO HAYNES APRN Jan 14, 2023 16:56
--- NOTE | 2023-01-14 17:30 | Diagnostic Imaging Report ---
INDICATION: Left knee pain. FINDINGS: Three views of the left knee show postop changes from recent total knee arthroplasty. There is no evidence of loosening or periprosthetic fracture. IMPRESSION: Good alignment of the left knee following joint arthroplasty. Dictated by: Dictated on workstation # [id number]
[2023-01-14 17:43] LABS: BASOPHILS % (AUTO) 0 % (0-10); EOSINOPHILS # (AUTO) 0.5 10^3/uL (0.0-0.3); EOSINOPHILS % (AUTO) 7 % (0-10); HEMATOCRIT 29 % (35-52); LYMPHOCYTES # (AUTO) 2.2 10^3/uL (1.0-4.0); LYMPHOCYTES % (AUTO) 27 % (12-44); MEAN CORPUSCULAR HEMOGLOBIN 32 pg (25-34); MEAN CORPUSCULAR HGB CONC 35 g/dL (32-36); MEAN CORPUSCULAR VOLUME 92 fL (80-99); MEAN PLATELET VOLUME 8.5 fL (9.0-12.2); MONOCYTES # (AUTO) 0.7 10^3/uL (0.0-1.0); MONOCYTES % (AUTO) 9 % (0-12); NEUTROPHILS # (AUTO) 4.6 10^3/uL (1.8-7.8); NEUTROPHILS % (AUTO) 57 % (42-75); PLATELET COUNT 236 10^3/uL (130-400); WHITE BLOOD COUNT 8.1 10^3/uL (4.3-11.0)
[2023-01-14 18:03] LABS: ERYTHROCYTE SEDIMENTATION RATE 76 MM/HR (0-30)
== END 2023-01-14 19:00 | disposition home or self-care (01) ==
LOC: EDUNIT# 16:15 → ER 16:17
DX: T81.89XA Other complications of procedures, not elsewhere classified, initial encounter (principal); R79.82 Elevated C-reactive protein (CRP); Z96.652 Presence of left artificial knee joint; X50.1XXA Overexertion from prolonged static or awkward postures, initial encounter; W19.XXXA Unspecified fall, initial encounter; Y92.009 Unspecified place in unspecified non-institutional (private) residence as the place of occurrence of the external cause
CPT/HCPCS: 36415; 73562; 85025; 85652; 86141

== ENCOUNTER → 2023-01-17 | Outpatient (CLI) | payer MEDICARE ==
[~2023-01-17] MED LIST changes: +BARIUM for suspension 96% w/w (Vanilla Silq Medium Density) PO ONE; +BARIUM for suspension 98% w/w (Vanilla Silq High Density) PO ONE
--- NOTE | 2023-01-18 08:04 | Diagnostic Imaging Report ---
Indication: Vomiting for 6 weeks. Patient ingested thin barium and imaging of the esophagus was performed in multiple obliquities. A total of 42 seconds of fluoroscopic time was utilized. Reference air Kerma is 26.6 mGy. 42 images were obtained. Preliminary radiograph the chest is unremarkable. The esophagus has a smooth contour. No mass or stricture is identified. No definite hiatal hernia was demonstrated. There is free flow of barium into the stomach which is unremarkable as well. There appears to be prompt emptying into the small bowel. IMPRESSION: Unremarkable single contrast esophagram. Dictated by: Dictated on workstation # [id number]
== END ==
LOC: RAD 14:15
PROVIDERS: ATTEND Surgery
DX: R13.10 Dysphagia, unspecified (principal); R11.10 Vomiting, unspecified
CPT/HCPCS: 74220

== ENCOUNTER → 2023-01-25 | Outpatient (CLI) | payer MEDICARE ==
[~2023-01-25] MED LIST changes: -BARIUM for suspension 96% w/w (Vanilla Silq Medium Density) PO ONE; -BARIUM for suspension 98% w/w (Vanilla Silq High Density) PO ONE
== END ==
LOC: ORTHO 10:41
PROVIDERS: ATTEND Orthopaedic Surgery
DX: Z12.11 Encounter for screening for malignant neoplasm of colon (principal); M17.0 Bilateral primary osteoarthritis of knee; R10.13 Epigastric pain; K82.8 Other specified diseases of gallbladder

== ENCOUNTER → 2023-01-26 | Outpatient (CLI) | payer MEDICARE ==
[~2023-01-26] MED LIST changes: +CATHETER FLUSH 10 ML SYR IVP PRN
--- NOTE | 2023-01-26 11:41 | Diagnostic Imaging Report ---
INDICATION: Epigastric pain. COMPARISON: None Tc-99m Choletec 5.1 mCi IV followed by 8 ounces of oral ensure FINDINGS: The upper abdomen was imaged for 60 minutes with the gamma camera. There is normal appearance of activity in the liver. There is activity in the common duct and gallbladder by 60 minutes. After 45 minutes, the patient received CCK. After 60 minutes with additional imaging, the gallbladder ejection fraction was calculated to be 91% which is normal. IMPRESSION: Normal hepatobiliary study with GBEF of 91%. Dictated by: Dictated on workstation # [id number]
== END ==
LOC: CARD 08:19
PROVIDERS: ATTEND Surgery
DX: R10.13 Epigastric pain (principal)
CPT/HCPCS: 78227; A9537

== ENCOUNTER → 2023-02-22 | Outpatient (CLI) | payer MEDICARE ==
[~2023-02-22] MED LIST changes: -CATHETER FLUSH 10 ML SYR IVP PRN
--- NOTE | 2023-02-22 13:18 | Diagnostic Imaging Report ---
INDICATION: Previous left knee replacement. Follow-up COMPARISON: 01/14/2023 FINDINGS: Multiple radiographic views of the left knee were obtained. Expected postoperative changes are seen from left knee total arthroplasty. Femoral and tibial components appear well-seated. There is no evidence of periprosthetic fracture. No unexpected radiopaque foreign bodies are identified. IMPRESSION: Expected postsurgical changes from left knee total arthroplasty, as described above. No evidence of hardware compromise. Dictated by: Dictated on workstation # [id number]
== END ==
LOC: ORTHO 11:02
PROVIDERS: ATTEND Orthopaedic Surgery
DX: Z47.89 Encounter for other orthopedic aftercare (principal); Z96.652 Presence of left artificial knee joint
CPT/HCPCS: 73560

== ENCOUNTER 2023-03-02 05:43 | Outpatient (CLI) | payer MEDICARE ==
[~2023-03-02] VITALS: Ht 157.5 cm; Wt 95.0 kg
== END 2023-03-07 15:17 | disposition home or self-care (01) ==
LOC: PREOP 05:43
PROVIDERS: ATTEND Surgery
DX: Z01.818 Encounter for other preprocedural examination (principal)